=== PATIENT | female | born 1995 | race Caucasian/White ===

== ENCOUNTER 2016-11-15 18:44 | Emergency (ER) | payer BC, OTHER ==
--- NOTE | 2016-11-15 19:16 | ED ---
Psych HPI - General Chief Complaint: Psychiatric Symptoms Stated Complaint: PETITIONED BY Time Seen by Provider: 11/15/16 18:54 Source: patient, RN notes reviewed Mode of arrival: ambulatory Limitations: no limitations - History of Present Illness Initial Comments: 21-year-old female presents emergency Department with police for psychiatric evaluation. Patient has called 911 twice in last week for panic attacks. Patient also reportedly stated that ice this is after her. Patient states that she waited to see her psychiatrist for medications. Patient denies any suicidal or homicidal thoughts. Patient does abuse marijuana. Denies any alcohol abuse at this time does have a history of it. Patient has no physical complaints. Denies any chest pain, shortness breath, nausea, vomiting diarrhea constipation. - Related Data Home Medications Medication Instructions Recorded Confirmed No Known Home Medications [No 11/15/16 11/15/16 Known Home Medications] Allergies Allergy/AdvReac Type Severity Reaction Status Date / Time No Known Allergies Allergy Verified 11/15/16 19:16 Review of Systems ROS Statement: Those systems with pertinent positive or pertinent negative responses have been documented in the HPI. ROS Other: All systems not noted in ROS Statement are negative. Past Medical History Past Medical History: No Reported History History of Any Multi-Drug Resistant Organisms: None Reported Past Surgical History: No Surgical Hx Reported Additional Past Surgical History / Comment(s): small cysts, externally in her groin area. Past Anesthesia/Blood Transfusion Reactions: No Reported Reaction Past Psychological History: ADD/ADHD, Anxiety, Depression Smoking Status: Current every day smoker Past Alcohol Use History: Occasional Additional Past Alcohol Use History / Comment(s): Patient is a smoker of one half pack per day since she was 13 years old. She has not been smoking marijuana lately but when she does she uses it every day. She denies a medical marijuana card. She denies any other street drug use. She drinks alcohol about one time per week. She is currently living with her father who uses heroin. Past Drug Use History: Marijuana - Past Family History Mother Additional Family Medical History / Comment(s): Mother is alive at age 53 with back and knee surgery, ovarian cysts. Father History Unknown: Yes Additional Family Medical History / Comment(s): Father is alive at age 53 with active history of heroin use Sister(s) Additional Family Medical History / Comment(s): She has 3 sisters and one half- sister with no major medical problems. Patient does not have any brothers. Patient does not have any children. General Exam Limitations: no limitations General appearance: alert, in no apparent distress Head exam: Present: atraumatic, normocephalic, normal inspection Eye exam: Present: normal appearance, PERRL, EOMI. Absent: scleral icterus, conjunctival injection, periorbital swelling ENT exam: Present: normal exam, normal oropharynx, mucous membranes moist Neck exam: Present: normal inspection, full ROM. Absent: tenderness, meningismus, lymphadenopathy Respiratory exam: Present: normal lung sounds bilaterally. Absent: respiratory distress, wheezes, rales, rhonchi, stridor Cardiovascular Exam: Present: regular rate, normal rhythm, normal heart sounds. Absent: systolic murmur, diastolic murmur, rubs, gallop, clicks GI/Abdominal exam: Present: soft, normal bowel sounds. Absent: distended, tenderness, guarding, rebound, rigid Neurological exam: Present: alert, oriented X3, CN II-XII intact Psychiatric exam: Present: normal affect, normal mood Skin exam: Present: warm, dry, intact, normal color. Absent: rash Course Vital Signs 11/15/16 11/15/16 18:53 18:58 Temperature 97 F L Pulse Rate 53 L Respiratory 20 Rate Blood Pressure 117/84 O2 Sat by Pulse 100 Oximetry Medical Decision Making - Medical Decision Making 21-year-old female presents emergency department for psychiatric evaluation. Patient was evaluated by [facility]. Patient is not suicidal or homicidal. Patient does not meet inpatient criteria. Patient does have anxiety. - Lab Data Lab Results 11/15/16 Range/Units 19:25 Urine Opiates Screen Not Detected (NotDetected) Ur Oxycodone Screen Not Detected (NotDetected) Urine Methadone Screen Not Detected (NotDetected) Ur Propoxyphene Screen Not Detected (NotDetected) Ur Barbiturates Screen Not Detected (NotDetected) U Tricyclic Antidepress Not Detected (NotDetected) Ur Phencyclidine Scrn Not Detected (NotDetected) Ur Amphetamines Screen Not Detected (NotDetected) U Methamphetamines Scrn Not Detected (NotDetected) U Benzodiazepines Scrn Not Detected (NotDetected) Urine Cocaine Screen Detected H (NotDetected) U Marijuana (THC) Screen Detected H (NotDetected) Disposition Clinical Impression: Acute anxiety Disposition: HOME SELF-CARE Condition: Stable Instructions: Generalized Anxiety Disorder (ED) Additional Instructions: Please return to the Emergency Department if symptoms worsen or any other concerns. Referrals: Dmitry Ortiz MD [Primary Care Provider] - 1-2 days Time of Disposition: 21:27
[2016-11-15] MEDS ORDERED: LORazepam 1 MG TAB PO STA (20:56)
[2016-11-15 21:34] VITALS: BP 121/61; PULSE 88; RESP 16; TEMP 97.7
== END 2016-11-15 21:34 | disposition home or self-care (01) ==
LOC: EC 18:44
DX: F41.9 Anxiety disorder, unspecified (principal); F32.9 Major depressive disorder, single episode, unspecified; F90.9 Attention-deficit hyperactivity disorder, unspecified type; F17.200 Nicotine dependence, unspecified, uncomplicated
CPT/HCPCS: 80306; 82075; 99284

== ENCOUNTER 2019-12-17 07:51 | Emergency (ER) | payer BC, OTHER ==
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
[2019-12-17] MEDS ORDERED: LORazepam 1 MG TAB PO STA (10:23)
[2019-12-17 11:42] LABS: ALT 23 U/L (4-34); AST 37 U/L (14-36); African American GFR (CKD) >90 (>60 ml/min/1.73 sqM); Albumin 4.6 g/dL (3.5-5.0); Alkaline Phosphatase 53 U/L (38-126); Anion Gap 9 mmol/L; Blood Urea Nitrogen 20 mg/dL (7-17); Calcium 9.4 mg/dL (8.4-10.2); Carbon Dioxide 27 mmol/L (22-30); Chloride 101 mmol/L (98-107); Glucose 94 mg/dL (74-99); Non-African American GFR(CKD) >90 (>60 ml/min/1.73 sqM); Potassium 4.2 mmol/L (3.5-5.1); Sodium 137 mmol/L (137-145); Total Bilirubin 0.6 mg/dL (0.2-1.3); Total Protein 7.3 g/dL (6.3-8.2)
[2019-12-17 11:53] LABS: Basophils # (A) 0.1 k/uL (0-0.2); Basophils % (A) 0 %; Eosinophils # (A) 0.2 k/uL (0-0.7); Eosinophils % (A) 1 %; HCT 39.7 % (34.0-46.0); HGB 13.4 gm/dL (11.4-16.0); Lymphocytes # (A) 3.7 k/uL (1.0-4.8); Lymphocytes % (A) 26 %; MCHC 33.7 g/dL (31.0-37.0); MCV 92.1 fL (80.0-100.0); Mean Platelet Volume 10.7; Monocytes # (A) 0.8 k/uL (0-1.0); Monocytes % (A) 6 %; Neutrophils % (A) 65 %; Platelet Count 317 k/uL (150-450); RBC 4.31 m/uL (3.80-5.40); RDW 13.1 % (11.5-15.5); WBC 13.9 k/uL (3.8-10.6)
[2019-12-17] MEDS ORDERED: ALPRAZolam 1 MG TAB PO STA (12:13)
[2019-12-17] MEDS ORDERED: ZIPRASIDONE 20 MG CAP PO STA ×3 (12:44→22:05)
[2019-12-17] MEDS ORDERED: NICOTINE 7MG/24HR PATCH TRANSDERM STA (17:43)
[2019-12-17] MEDS ORDERED: ZIPRASIDONE 20 MG VIAL IM STA ×2 (18:16→22:16)
[2019-12-17] MEDS ORDERED: LORazepam 2 MG/ML INJ IM STA (18:16)
--- NOTE | 2019-12-17 18:24 | ED ---
Medical Decision Making - Medical Decision Making Patient being disruptive and continue trying to leave. Patient appears psychotic and irrational. Patient unable to demonstrate medical decision making. - Lab Data Result diagrams: 12/17/19 10:53 12/17/19 10:53 Lab Results 12/17/19 12/17/19 12/17/19 Range/Units 10:53 10:53 13:00 WBC 13.9 H (3.8-10.6) k/uL RBC 4.31 (3.80-5.40) m/uL Hgb 13.4 (11.4-16.0) gm/dL Hct 39.7 (34.0-46.0) % MCV 92.1 (80.0-100.0) fL MCH 31.0 (25.0-35.0) pg MCHC 33.7 (31.0-37.0) g/dL RDW 13.1 (11.5-15.5) % Plt Count 317 (150-450) k/uL Neutrophils % 65 % Lymphocytes % 26 % Monocytes % 6 % Eosinophils % 1 % Basophils % 0 % Neutrophils # 9.0 H (1.3-7.7) k/uL Lymphocytes # 3.7 (1.0-4.8) k/uL Monocytes # 0.8 (0-1.0) k/uL Eosinophils # 0.2 (0-0.7) k/uL Basophils # 0.1 (0-0.2) k/uL Sodium 137 (137-145) mmol/L Potassium 4.2 (3.5-5.1) mmol/L Chloride 101 (98-107) mmol/L Carbon Dioxide 27 (22-30) mmol/L Anion Gap 9 mmol/L BUN 20 H (7-17) mg/dL Creatinine 0.59 (0.52-1.04) mg/dL Est GFR (CKD-EPI)AfAm >90 (>60 ml/min/1.73 sqM) Est GFR (CKD-EPI)NonAf >90 (>60 ml/min/1.73 sqM) Glucose 94 (74-99) mg/dL Calcium 9.4 (8.4-10.2) mg/dL Total Bilirubin 0.6 (0.2-1.3) mg/dL AST 37 H (14-36) U/L ALT 23 (4-34) U/L Alkaline Phosphatase 53 (38-126) U/L Total Protein 7.3 (6.3-8.2) g/dL Albumin 4.6 (3.5-5.0) g/dL Urine HCG, Qual Not Detected (Not Detectd) Disposition Clinical Impression: Acute psychosis Disposition: TRANSFER TO PSYCH HOSP/UNIT Is patient prescribed a controlled substance at d/c from ED?: No Referrals: Mila Sosa DO [Primary Care Provider] - 1-2 days Procedures - Restraint - Face to Face Restraint Occurrence 1 Patient's Immediate Situation: Endangers self safety Patient's Reaction to the Intervention: Uncooperative Patient's Medical & Behavioral Condition: Awake Need to Continue or Terminate Restraint or Seclusion: Continue Face to Face Eval of Restraint Date: 12/17/19 Face to Face Eval of Restraint Time: 18:01
[2019-12-17 20:16] LABS: Appearance,Urine Clear (Clear); Bilirubin,Urine Negative (Negative); Blood,Urine Negative (Negative); Color,Urine Yellow; Glucose,Urine (UA) Negative (Negative); Ketones,Urine Trace (Negative); Leukocyte Esterase,Urine Negative (Negative); Nitrite,Urine Negative (Negative); Protein,Urine Negative (Negative); Specific Gravity,Urine 1.011 (1.001-1.035); Urobilinogen,Urine <2.0 mg/dL (<2.0)
[2019-12-17 20:53] LABS: Amphetamine Screen,Urine Detected (NotDetected); Barbiturate Screen,Urine Not Detected (NotDetected); Benzodiazepines Screen,Urine Detected (NotDetected); Cocaine Screen,Urine Not Detected (NotDetected); Methadone Screen, Urine Not Detected (NotDetected); Opiate Screen,Urine Not Detected (NotDetected); Oxycodone Screen, Urine Not Detected (NotDetected); Phencyclidine Screen,Urine Not Detected (NotDetected); Tricyclic Antidepressant,Urine Not Detected (NotDetected); Urn Cannabinoid Scrn Detected (NotDetected)
[2019-12-17 21:39] VITALS: RESP 18
[2019-12-17] MEDS ORDERED: ZIPRASIDONE 20 MG CAP PO PRN (21:45)
[2019-12-18] MEDS ORDERED: LORazepam 1 MG TAB PO STA (01:41)
[2019-12-18] MEDS ORDERED: diphenhydrAMINE 50 MG CAP PO STA ×2 (01:41→01:45)
[2019-12-18] MEDS ORDERED: NICOTINE 14MG/24HR PATCH TRANSDERM STA (02:10)
[2019-12-18 02:30] VITALS: BP 116/80; PULSE 97; TEMP 97.9
== END 2019-12-18 02:33 ==
LOC: EC 07:51
DX: Z03.818 Encounter for observation for suspected exposure to other biological agents ruled out (principal); F23 Brief psychotic disorder; F90.9 Attention-deficit hyperactivity disorder, unspecified type; F32.9 Major depressive disorder, single episode, unspecified; F41.9 Anxiety disorder, unspecified; F17.200 Nicotine dependence, unspecified, uncomplicated; Z79.899 Other long term (current) drug therapy
CPT/HCPCS: 82075; 36415; 80053; 85025; 81003; 81025; 80306; 96372 ×3; 99285; U0003; S4990 ×2; J2060; J3486

== ENCOUNTER 2020-03-10 17:47 | Emergency (ER) | payer OTHER ==
[2020-03-10 18:02] VITALS: TEMP 98.9
[2020-03-10 18:33] LABS: Appearance,Urine Clear (Clear); Bilirubin,Urine Negative (Negative); Blood,Urine Negative (Negative); Color,Urine Light Yellow; Glucose,Urine (UA) Negative (Negative); Ketones,Urine Negative (Negative); Leukocyte Esterase,Urine Negative (Negative); Nitrite,Urine Negative (Negative); Protein,Urine Negative (Negative); Specific Gravity,Urine 1.012 (1.001-1.035); Urobilinogen,Urine <2.0 mg/dL (<2.0)
[2020-03-10 18:43] VITALS: BP 130/92; PULSE 98; RESP 18
--- NOTE | 2020-03-10 18:43 | ED ---
General Adult HPI - General Chief complaint: Anxiety Stated complaint: anxiety Time Seen by Provider: 03/10/20 18:10 Source: patient, RN notes reviewed Mode of arrival: ambulatory Limitations: no limitations - History of Present Illness Initial comments: 25-year-old female with a past medical history of seizure disorder, anxiety, depression, bipolar disorder presents to the emergency room for anxiety. Patient reports that she has been anxious for the past several days. Patient reports she thinks this is because she was seen in the psychiatric [facility] about a month and a half ago and was given a prescription for Ativan. She ran out of this about a month ago. She has been seeing her counselor that she has had increased anxiety. They recommended she see a psychiatrist for anxiety with X. She has an appointment on Wednesday. However patient states that she needs an Ativan. She reports that if she has one today will help for the next several days. She states otherwise her coping mechanisms are to go to sleep. Patient denies any thoughts of harming herself or anyone else. Patient also may have a urinary tract infection in stating she has urinary urgency. Denies fevers, flank pain or dysuria.Patient has no other complaints at this time including shortness of breath, chest pain, abdominal pain, nausea or vomiting, headache, or visual changes. - Related Data Home Medications Medication Instructions Recorded Confirmed Divalproex Sodium [Depakote] 1,000 mg PO BID 12/17/19 03/10/20 Benztropine Mesylate [Cogentin] 0.5 mg PO BID 03/10/20 03/10/20 OLANZapine [ZyPREXA Zydis] 10 mg PO BID 03/10/20 03/10/20 cloNIDine HCL [Catapres] 0.2 mg PO DAILY 03/10/20 03/10/20 haloperidoL [Haloperidol] 5 mg PO TID 03/10/20 03/10/20 Allergies Allergy/AdvReac Type Severity Reaction Status Date / Time No Known Allergies Allergy Verified 03/10/20 18:37 Review of Systems ROS Statement: Those systems with pertinent positive or pertinent negative responses have been documented in the HPI. ROS Other: All systems not noted in ROS Statement are negative. Past Medical History Past Medical History: Seizure Disorder History of Any Multi-Drug Resistant Organisms: None Reported Past Surgical History: No Surgical Hx Reported Additional Past Surgical History / Comment(s): small cysts, externally in her groin area. Past Anesthesia/Blood Transfusion Reactions: No Reported Reaction Past Psychological History: ADD/ADHD, Anxiety, Bipolar, Depression, PTSD Smoking Status: Current every day smoker Past Alcohol Use History: Occasional Past Drug Use History: Marijuana - Past Family History Mother Additional Family Medical History / Comment(s): Mother is alive at age 53 with back and knee surgery, ovarian cysts. Father History Unknown: Yes Additional Family Medical History / Comment(s): Father is alive at age 53 with active history of heroin use Sister(s) Additional Family Medical History / Comment(s): She has 3 sisters and one half- sister with no major medical problems. Patient does not have any brothers. Patient does not have any children. General Exam Limitations: no limitations General appearance: alert, in no apparent distress Head exam: Present: atraumatic, normocephalic, normal inspection Eye exam: Present: normal appearance, PERRL, EOMI. Absent: scleral icterus, conjunctival injection, periorbital swelling ENT exam: Present: normal exam, mucous membranes moist Neck exam: Present: normal inspection, full ROM. Absent: tenderness, m eningismus, lymphadenopathy Respiratory exam: Present: normal lung sounds bilaterally. Absent: respiratory distress, wheezes, rales, rhonchi, stridor Cardiovascular Exam: Present: regular rate, normal rhythm, normal heart sounds. Absent: systolic murmur, diastolic murmur, rubs, gallop, clicks GI/Abdominal exam: Present: soft, normal bowel sounds. Absent: distended, tenderness, guarding, rebound, rigid Neurological exam: Present: alert Psychiatric exam: Present: anxious Course Vital Signs 03/10/20 03/10/20 17:56 18:42 Temperature 98.9 F Pulse Rate 127 H 98 Respiratory 16 18 Rate Blood Pressure 118/84 130/92 O2 Sat by Pulse 97 97 Oximetry Medical Decision Making - Medical Decision Making Vitals are stable. Patient initially tachycardic upon presentation to the emergency room which was likely secondary to her anxiety. Patient's vitals did improve her her stay. HPI and physical exam as documented. Urinalysis is unremarkable. HCG is negative. At this time patient will be given 1 Ativan here. She will follow up at her appointment on Wednesday. She will return if she has any worsening symptoms.I discussed this case with attending Dr. Conde who agrees with this assessment and treatment plan. - Lab Data Lab Results 03/10/20 03/10/20 03/10/20 Range/Units 18:28 18:28 18:28 Urine Color Light Yellow Urine Appearance Clear (Clear) Urine pH 8.0 (5.0-8.0) Ur Specific [place] 1.012 (1.001-1.035) Urine Protein Negative (Negative) Urine Glucose (UA) Negative (Negative) Urine Ketones Negative (Negative) Urine Blood Negative (Negative) Urine Nitrite Negative (Negative) Urine Bilirubin Negative (Negative) Urine Urobilinogen <2.0 (<2.0) mg/dL Ur Leukocyte Esterase Negative (Negative) Urine HCG, Qual Not Detected (Not Detectd) Urine Opiates Screen Not Detected (NotDetected) Ur Oxycodone Screen Not Detected (NotDetected) Urine Methadone Screen Not Detected (NotDetected) Ur Propoxyphene Screen Not Detected (NotDetected) Ur Barbiturates Screen Not Detected (NotDetected) U Tricyclic Antidepress Not Detected (NotDetected) Ur Phencyclidine Scrn Not Detected (NotDetected) Ur Amphetamines Screen Not Detected (NotDetected) U Methamphetamines Scrn Not Detected (NotDetected) U Benzodiazepines Scrn Not Detected (NotDetected) Urine Cocaine Screen Not Detected (NotDetected) U Marijuana (THC) Screen Detected H (NotDetected) Disposition Clinical Impression: Acute anxiety Disposition: HOME SELF-CARE Condition: Good Instructions (If sedation given, give patient instructions): Generalized Anxiety Disorder (ED) Additional Instructions: Please follow up with your psychiatry appt on Wednesday. Return to the ER for any worsening symptoms. Is patient prescribed a controlled substance at d/c from ED?: No Referrals: David Markham DO [Primary Care Provider] - 1-2 days Time of Disposition: 18:59
[2020-03-10 18:46] LABS: Amphetamine Screen,Urine Not Detected (NotDetected); Barbiturate Screen,Urine Not Detected (NotDetected); Benzodiazepines Screen,Urine Not Detected (NotDetected); Cocaine Screen,Urine Not Detected (NotDetected); Methadone Screen, Urine Not Detected (NotDetected); Opiate Screen,Urine Not Detected (NotDetected); Oxycodone Screen, Urine Not Detected (NotDetected); Phencyclidine Screen,Urine Not Detected (NotDetected); Tricyclic Antidepressant,Urine Not Detected (NotDetected); Urn Cannabinoid Scrn Detected (NotDetected)
[2020-03-10] MEDS ORDERED: LORazepam 1 MG TAB PO STA (18:52)
== END 2020-03-10 19:04 | disposition home or self-care (01) ==
LOC: EC 17:47
DX: F41.9 Anxiety disorder, unspecified (principal); G40.909 Epilepsy, unspecified, not intractable, without status epilepticus; F31.9 Bipolar disorder, unspecified; F43.10 Post-traumatic stress disorder, unspecified; R39.15 Urgency of urination; Z79.899 Other long term (current) drug therapy
CPT/HCPCS: 80306; 81003; 81025; 99283

== ENCOUNTER 2020-03-22 16:48 | Emergency (ER) | payer OTHER ==
[2020-03-22 17:03] VITALS: RESP 18; TEMP 98.1
[2020-03-22] MEDS ORDERED: LORazepam 1 MG TAB PO STA (17:25)
--- NOTE | 2020-03-22 17:53 | ED ---
General Adult HPI - General Chief complaint: Anxiety Stated complaint: anxiety Time Seen by Provider: 03/22/20 17:15 Source: patient, RN notes reviewed Mode of arrival: ambulatory Limitations: no limitations - History of Present Illness Initial comments: 25-year-old female presents to the emergency room for a chief complaint of anxiety. Patient is on several different anxiety medications. Patient reports that they are working on getting her more controlled. She has an appointment on Wednesday where she will be able to go over her medications. Patient reports that throat the day she has just been more anxious than normal. States she is having episodes where she can't stop crying. She states she feels shaky. Patient reports that she feels like she needs an Ativan will help her get through until Wednesday.patient denies any thoughts of harming herself or anyone else. Patient has no other complaints at this time including shortness of br eath, chest pain, abdominal pain, nausea or vomiting, headache, or visual changes. - Related Data Home Medications Medication Instructions Recorded Confirmed Divalproex Sodium [Depakote] 1,000 mg PO BID 12/17/19 03/10/20 Benztropine Mesylate [Cogentin] 0.5 mg PO BID 03/10/20 03/10/20 OLANZapine [ZyPREXA Zydis] 10 mg PO BID 03/10/20 03/10/20 cloNIDine HCL [Catapres] 0.2 mg PO DAILY 03/10/20 03/10/20 haloperidoL [Haloperidol] 5 mg PO TID 03/10/20 03/10/20 Allergies Allergy/AdvReac Type Severity Reaction Status Date / Time No Known Allergies Allergy Verified 03/22/20 16:59 Review of Systems ROS Statement: Those systems with pertinent positive or pertinent negative responses have been documented in the HPI. ROS Other: All systems not noted in ROS Statement are negative. Past Medical History Past Medical History: Seizure Disorder History of Any Multi-Drug Resistant Organisms: None Reported Past Surgical History: No Surgical Hx Reported Additional Past Surgical History / Comment(s): small cysts, externally in her groin area. Past Anesthesia/Blood Transfusion Reactions: No Reported Reaction Past Psychological History: ADD/ADHD, Anxiety, Bipolar, Depression, PTSD Smoking Status: Current every day smoker Past Alcohol Use History: None Reported Past Drug Use History: Marijuana - Past Family History Mother Additional Family Medical History / Comment(s): Mother is alive at age 53 with back and knee surgery, ovarian cysts. Father History Unknown: Yes Additional Family Medical History / Comment(s): Father is alive at age 53 with active history of heroin use Sister(s) Additional Family Medical History / Comment(s): She has 3 sisters and one half- sister with no major medical problems. Patient does not have any brothers. Patient does not have any children. General Exam Limitations: no limitations General appearance: alert, in no apparent distress, anxious Head exam: Present: atraumatic, normocephalic, normal inspection Eye exam: Present: normal appearance, PERRL, EOMI. Absent: scleral icterus, conjunctival injection, periorbital swelling ENT exam: Present: normal exam, mucous membranes moist Neck exam: Present: normal inspection, full ROM. Absent: tenderness, meningismus, lymphadenopathy Respiratory exam: Present: normal lung sounds bilaterally. Absent: respiratory distress, wheezes, rales, rhonchi, stridor Cardiovascular Exam: Present: regular rate, normal rhythm, normal heart sounds. Absent: systolic murmur, diastolic murmur, rubs, gallop, clicks GI/Abdominal exam: Present: soft, normal bowel sounds. Absent: distended, tenderness, guarding, rebound, rigid Neurological exam: Present: alert Course Vital Signs 03/22/20 17:00 Temperature 98.1 F Pulse Rate 111 H Respiratory 18 Rate Blood Pressure 137/100 O2 Sat by Pulse 98 Oximetry Medical Decision Making - Medical Decision Making Patient was given 1 mg of Ativan here in the emergency room and she did have significant improvement symptoms. At this time patient can be discharged home to follow up with primary care. She has an appointment on Wednesday to go over her medications. She does have a ride home today. She will return here for any worsening symptoms. Disposition Clinical Impression: Acute anxiety Disposition: HOME SELF-CARE Condition: Good Instructions (If sedation given, give patient instructions): Generalized Anxiety Disorder (ED) Additional Instructions: Please follow-up with primary care in 1-2 days. Return here to the emergency room for any worsening symptoms. Is patient prescribed a controlled substance at d/c from ED?: No Referrals: David Markham DO [Primary Care Provider] - 1-2 days Time of Disposition: 17:59
[2020-03-22 18:06] VITALS: BP 149/89; PULSE 90
== END 2020-03-22 18:29 | disposition home or self-care (01) ==
LOC: EC 16:48
DX: F41.9 Anxiety disorder, unspecified (principal); G40.909 Epilepsy, unspecified, not intractable, without status epilepticus; F90.9 Attention-deficit hyperactivity disorder, unspecified type; F31.9 Bipolar disorder, unspecified; Z79.899 Other long term (current) drug therapy; F17.200 Nicotine dependence, unspecified, uncomplicated
CPT/HCPCS: 99282

== ENCOUNTER 2020-03-23 13:45 | Emergency (ER) | payer OTHER ==
[2020-03-23 13:58] VITALS: BP 128/84; RESP 20; TEMP 98.2
[2020-03-23] MEDS ORDERED: ALPRAZolam 1 MG TAB PO STA (14:04)
--- NOTE | 2020-03-23 14:07 | ED ---
General Adult HPI - General Chief complaint: Anxiety Stated complaint: revisit-anxiety attack Time Seen by Provider: 03/23/20 13:59 Source: patient Mode of arrival: ambulatory Limitations: no limitations - History of Present Illness Initial comments: Dictation was produced using [employer] dictation software. please excuse any grammatical, word or spelling errors. This patient was cared for during a federal and state declared state of emergency secondary to Covid 19 Chief Complaint: 25-year-old female presents with anxiety. History of Present Illness: 25-year-old female she has past medical history of anxiety. She has anxiety managed outpatient by nurse practitioner. She does have history of mental illness per she was seen here yesterday for anxiety symptoms. She does report some mild dyspnea patient does not have any history of respiratory symptoms. Patient denies . She denies any suicidal or homicidal ideation. Denies any visual auditory hallucinations. Patient denies any caffeine use. No alcohol intake in the last 24-48 hours. Patient requests some anxiolytics before she was working at 5 PM. She feels anxious but she does not have any particular reason of why she feels anxious. The ROS documented in this emergency department record has been reviewed and confirmed by me. Those systems with pertinent positive or negative responses have been documented in the HPI. All other systems are other negative and/or noncontributory. PHYSICAL EXAM: General Impression: Alert and oriented x3, not in acute distress HEENT: Normocephalic atraumatic, extra-ocular movements intact, pupils equal and reactive to light bilaterally, mucous membranes moist. Cardiovascular: Heart regular rate and rhythm, no murmurs Chest: Able to complete full sentences, no retractions, no tachypnea, lungs clear to auscultation bilaterally Abdomen: abdomen soft, non-tender, non-distended, no organomegaly Musculoskeletal: Pulses present and equal in all extremities, no peripheral edema Motor: no focal deficits noted Neurological: CN II-XII grossly intact, no focal motor or sensory deficits noted Skin: Intact with no visualized rashes Psych: Normal affect and mood ED course: 25-year-old female presents with anxiety reaction. As upon arrival shows heart rate of 111, rest of vital signs within acceptable limits. Two-view chest x-ray is unremarkable. Patient's well-appearing at bedside after anxiolytics. Patient be discharged per she is told to follow-up with her mental specialist for outpatient management of anxiety. Repeat heart rate is improved. - Related Data Home Medications Medication Instructions Recorded Confirmed Divalproex Sodium [Depakote] 1,000 mg PO BID 12/17/19 03/10/20 Benztropine Mesylate [Cogentin] 0.5 mg PO BID 03/10/20 03/10/20 OLANZapine [ZyPREXA Zydis] 10 mg PO BID 03/10/20 03/10/20 cloNIDine HCL [Catapres] 0.2 mg PO DAILY 03/10/20 03/10/20 haloperidoL [Haloperidol] 5 mg PO TID 03/10/20 03/10/20 Allergies Allergy/AdvReac Type Severity Reaction Status Date / Time No Known Allergies Allergy Verified 03/23/20 13:58 Review of Systems ROS Statement: Those systems with pertinent positive or pertinent negative responses have been documented in the HPI. ROS Other: All systems not noted in ROS Statement are negative. Past Medical History Past Medical History: Seizure Disorder History of Any Multi-Drug Resistant Organisms: None Reported Past Surgical History: No Surgical Hx Reported Additional Past Surgical History / Comment(s): small cysts, externally in her groin area. Past Anesthesia/Blood Transfusion Reactions: No Reported Reaction Past Psychological History: ADD/ADHD, Anxiety, Bipolar, Depression, PTSD Smoking Status: Current every day smoker Past Alcohol Use History: None Reported Past Drug Use History: Marijuana - Past Family History Mother Additional Family Medical History / Comment(s): Mother is alive at age 53 with back and knee surgery, ovarian cysts. Father History Unknown: Yes Additional Family Medical History / Comment(s): Father is alive at age 53 with active history of heroin use Sister(s) Additional Family Medical History / Comment(s): She has 3 sisters and one half- sister with no major medical problems. Patient does not have any brothers. Patient does not have any children. General Exam Limitations: no limitations Course Vital Signs 03/23/20 03/23/20 13:55 14:26 Temperature 98.2 F Pulse Rate 111 H 94 Respiratory 20 Rate Blood Pressure 128/84 O2 Sat by Pulse 98 98 Oximetry Disposition Clinical Impression: Anxiety Disposition: HOME SELF-CARE Condition: Good Instructions (If sedation given, give patient instructions): Generalized Anxiety Disorder (ED) Is patient prescribed a controlled substance at d/c from ED?: No Referrals: David Markham DO [Primary Care Provider] - 1-2 days Time of Disposition: 15:16
[2020-03-23 14:27] VITALS: PULSE 94
--- NOTE | 2020-03-23 15:03 | XR ---
EXAMINATION TYPE: XR chest 2V DATE OF EXAM: 03/23/2020 COMPARISON: NONE HISTORY: Short of breath TECHNIQUE: FINDINGS: Heart and mediastinum are normal. Lungs are clear. Diaphragm is normal. Bony thorax appears normal. IMPRESSION: Normal chest
== END 2020-03-23 15:27 | disposition home or self-care (01) ==
LOC: EC 13:45
DX: F41.9 Anxiety disorder, unspecified (principal); G40.909 Epilepsy, unspecified, not intractable, without status epilepticus; F31.9 Bipolar disorder, unspecified; F90.9 Attention-deficit hyperactivity disorder, unspecified type; Z79.899 Other long term (current) drug therapy; F17.200 Nicotine dependence, unspecified, uncomplicated
CPT/HCPCS: 71046; 99283

== ENCOUNTER 2020-05-02 03:11 | Emergency (ER) | payer OTHER ==
[2020-05-02 03:17] VITALS: RESP 18; TEMP 98.6
[2020-05-02] MEDS ORDERED: SODIUM CHLORIDE 0.9% 500 ML 500 ML IV STA ×2 (03:19→05:01)
[2020-05-02 04:25] LABS: Basophils # (A) 0.1 k/uL (0-0.2); Basophils % (A) 1 %; Eosinophils # (A) 0.5 k/uL (0-0.7); Eosinophils % (A) 4 %; HCT 42.5 % (34.0-46.0); HGB 14.4 gm/dL (11.4-16.0); Lymphocytes # (A) 4.9 k/uL (1.0-4.8); Lymphocytes % (A) 40 %; MCH 31.5 pg (25.0-35.0); MCHC 33.8 g/dL (31.0-37.0); MCV 93.2 fL (80.0-100.0); Mean Platelet Volume 9.2; Monocytes # (A) 0.8 k/uL (0-1.0); Monocytes % (A) 6 %; Neutrophils # (A) 5.7 k/uL (1.3-7.7); Neutrophils % (A) 47 %; Platelet Count 270 k/uL (150-450); RBC 4.55 m/uL (3.80-5.40); RDW 11.7 % (11.5-15.5); WBC 12.2 k/uL (3.8-10.6)
[2020-05-02 04:44] LABS: ALT 34 U/L (4-34); AST 33 U/L (14-36); African American GFR (CKD) >90 (>60 ml/min/1.73 sqM); Albumin 4.8 g/dL (3.5-5.0); Alkaline Phosphatase 60 U/L (38-126); Anion Gap 9 mmol/L; Blood Urea Nitrogen 18 mg/dL (7-17); Calcium 9.8 mg/dL (8.4-10.2); Carbon Dioxide 26 mmol/L (22-30); Chloride 105 mmol/L (98-107); Glucose 103 mg/dL (74-99); Magnesium 2.1 mg/dL (1.6-2.3); Non-African American GFR(CKD) 81 (>60 ml/min/1.73 sqM); Potassium 4.4 mmol/L (3.5-5.1); Sodium 140 mmol/L (137-145); Total Bilirubin 0.8 mg/dL (0.2-1.3); Total Protein 7.8 g/dL (6.3-8.2)
[2020-05-02] MEDS ORDERED: LORazepam 1 MG TAB PO STA (05:00)
--- NOTE | 2020-05-02 05:19 | ED ---
General Adult HPI - General Chief complaint: Extremity Problem,Nontraumatic Stated complaint: leg cramps/spasms Time Seen by Provider: 05/02/20 03:18 Source: patient Mode of arrival: ambulatory Limitations: no limitations - History of Present Illness Initial comments: this patient is a 25-year-old woman who presents to be evaluated for bilateral leg spasms. She states she is been getting these going back for probably about 2 months intermittently. They have come on tonight and the patient was concerned that it may be also related to a recent changes in her psychiatricmedication regimen. Patient denies any leg swelling. No chest pain, dyspnea, palpitations hemoptysis or syncope. No change in urination or bowel movements. -: month(s) Location: left, right, lower extremity Quality: other (spasms) Consistency: intermittent Improves with: none Worsens with: none Associated Symptoms: denies other symptoms - Related Data Home Medications Medication Instructions Recorded Confirmed Divalproex Sodium [Depakote] 1,000 mg PO BID 12/17/19 03/10/20 Benztropine Mesylate [Cogentin] 0.5 mg PO BID 03/10/20 03/10/20 OLANZapine [ZyPREXA Zydis] 10 mg PO BID 03/10/20 03/10/20 cloNIDine HCL [Catapres] 0.2 mg PO DAILY 03/10/20 03/10/20 haloperidoL [Haloperidol] 5 mg PO TID 03/10/20 03/10/20 Allergies Allergy/AdvReac Type Severity Reaction Status Date / Time No Known Allergies Allergy Verified 05/02/20 03:17 Review of Systems ROS Statement: Those systems with pertinent positive or pertinent negative responses have been documented in the HPI. ROS Other: All systems not noted in ROS Statement are negative. Constitutional: Denies: fever, chills Respiratory: Denies: dyspnea, hemoptysis Cardiovascular: Denies: chest pain, palpitations, edema, syncope Gastrointestinal: Denies: abdominal pain, nausea, vomiting Genitourinary: Denies: dysuria, hematuria Musculoskeletal: Reports: as per HPI, myalgia Skin: Denies: rash Neurological: Denies: weakness, numbness Past Medical History Past Medical History: Seizure Disorder History of Any Multi-Drug Resistant Organisms: None Reported Past Surgical History: No Surgical Hx Reported Additional Past Surgical History / Comment(s): small cysts, externally in her groin area. Past Anesthesia/Blood Transfusion Reactions: No Reported Reaction Past Psychological History: ADD/ADHD, Anxiety, Bipolar, Depression, PTSD Smoking Status: Current every day smoker Past Alcohol Use History: None Reported Past Drug Use History: Marijuana - Past Family History Mother Additional Family Medical History / Comment(s): Mother is alive at age 53 with back and knee surgery, ovarian cysts. Father History Unknown: Yes Additional Family Medical History / Comment(s): Father is alive at age 53 with active history of heroin use Sister(s) Additional Family Medical History / Comment(s): She has 3 sisters and one half-sister with no major medical problems. Patient does not have any brothers. Patient does not have any children. General Exam Limitations: no limitations General appearance: alert, in no apparent distress Head exam: Present: atraumatic, normocephalic Respiratory exam: Present: normal lung sounds bilaterally. Absent: respiratory distress, wheezes, rales, rhonchi, stridor Cardiovascular Exam: Present: regular rate, normal rhythm, normal heart sounds. Absent: systolic murmur, diastolic murmur, rubs, gallop GI/Abdominal exam: Present: soft. Absent: tenderness Extremities exam: Present: normal inspection, normal capillary refill. Absent: pedal edema, calf tenderness Back exam: Present: normal inspection. Absent: muscle spasm Neurological exam: Present: alert Skin exam: Present: warm, dry, intact, normal color. Absent: rash Course Vital Signs 05/02/20 05/02/20 03:14 06:03 Temperature 98.6 F 98.6 F Pulse Rate 108 H 82 Respiratory 18 18 Rate Blood Pressure 134/87 123/88 O2 Sat by Pulse 97 100 Oximetry Medical Decision Making - Medical Decision Making patient is 25-year-old woman with intermittent muscle spasms bilateral lower extremities. Exam is essentially normal. The patient does have what appears to be a touch of dehydration per the labs. Patient is given fluids and is feeling a little better. Discussed appropriate further care and follow-up - Lab Data Result diagrams: 05/02/20 04:16 05/02/20 04:16 Lab Results 05/02/20 05/02/20 Range/Units 04:16 04:16 WBC 12.2 H (3.8-10.6) k/uL RBC 4.55 (3.80-5.40) m/uL Hgb 14.4 (11.4-16.0) gm/dL Hct 42.5 (34.0-46.0) % MCV 93.2 (80.0-100.0) fL MCH 31.5 (25.0-35.0) pg MCHC 33.8 (31.0-37.0) g/dL RDW 11.7 (11.5-15.5) % Plt Count 270 (150-450) k/uL MPV 9.2 Neutrophils % 47 % Lymphocytes % 40 % Monocytes % 6 % Eosinophils % 4 % Basophils % 1 % Neutrophils # 5.7 (1.3-7.7) k/uL Lymphocytes # 4.9 H (1.0-4.8) k/uL Monocytes # 0.8 (0-1.0) k/uL Eosinophils # 0.5 (0-0.7) k/uL Basophils # 0.1 (0-0.2) k/uL Sodium 140 (137-145) mmol/L Potassium 4.4 (3.5-5.1) mmol/L Chloride 105 (98-107) mmol/L Carbon Dioxide 26 (22-30) mmol/L Anion Gap 9 mmol/L BUN 18 H (7-17) mg/dL Creatinine 0.97 (0.52-1.04) mg/dL Est GFR (CKD-EPI)AfAm >90 (>60 ml/min/1.73 sqM) Est GFR (CKD-EPI)NonAf 81 (>60 ml/min/1.73 sqM) Glucose 103 H (74-99) mg/dL Calcium 9.8 (8.4-10.2) mg/dL Magnesium 2.1 (1.6-2.3) mg/dL Total Bilirubin 0.8 (0.2-1.3) mg/dL AST 33 (14-36) U/L ALT 34 (4-34) U/L Alkaline Phosphatase 60 (38-126) U/L Total Protein 7.8 (6.3-8.2) g/dL Albumin 4.8 (3.5-5.0) g/dL Disposition Clinical Impression: Dehydration, Muscle spasm of both lower legs Disposition: HOME SELF-CARE Condition: Good Instructions (If sedation given, give patient instructions): Muscle Spasm (ED) Is patient prescribed a controlled substance at d/c from ED?: No Referrals: David Markham DO [Primary Care Provider] - 1-2 days
[2020-05-02] MEDS ORDERED: IBUPROFEN 600 MG TAB PO STA (05:57)
[2020-05-02 06:04] VITALS: BP 123/88; PULSE 82
== END 2020-05-02 06:03 | disposition home or self-care (01) ==
LOC: EC 03:11
DX: M62.838 Other muscle spasm (principal); E86.0 Dehydration; F32.9 Major depressive disorder, single episode, unspecified; F41.9 Anxiety disorder, unspecified; G40.909 Epilepsy, unspecified, not intractable, without status epilepticus; F90.9 Attention-deficit hyperactivity disorder, unspecified type; F17.200 Nicotine dependence, unspecified, uncomplicated; Z79.899 Other long term (current) drug therapy
CPT/HCPCS: 36415; 80053; 83735; 85025; 96360; 99284

== ENCOUNTER 2020-11-07 05:08 | Emergency (ER) | payer OTHER ==
[2020-11-07 05:13] VITALS: TEMP 98
[2020-11-07] MEDS ORDERED: SODIUM CHLORIDE 0.9% 1,000 ML IV STA (05:42)
[2020-11-07] MEDS ORDERED: AMPICILLIN-SULBACTAM 3 GM in SODIUM CHLORIDE 0.9% 100 ML IVPB STA (05:43)
--- NOTE | 2020-11-07 05:45 | ED ---
Nausea/Vomiting/Diarrhea HPI - General Chief complaint: Nausea/Vomiting/Diarrhea Stated complaint: Vomiting Time Seen by Provider: 11/07/20 05:11 Source: patient Mode of arrival: ambulatory Limitations: no limitations - Related Data Home Medications Medication Instructions Recorded Confirmed Divalproex Sodium [Depakote] 1,000 mg PO BID 12/17/19 03/10/20 Benztropine Mesylate [Cogentin] 0.5 mg PO BID 03/10/20 03/10/20 OLANZapine [ZyPREXA Zydis] 10 mg PO BID 03/10/20 03/10/20 cloNIDine HCL [Catapres] 0.2 mg PO DAILY 03/10/20 03/10/20 haloperidoL [Haloperidol] 5 mg PO TID 03/10/20 03/10/20 Allergies Allergy/AdvReac Type Severity Reaction Status Date / Time No Known Allergies Allergy Verified 11/07/20 05:13 Review of Systems ROS Statement: Those systems with pertinent positive or pertinent negative responses have been documented in the HPI. ROS Other: All systems not noted in ROS Statement are negative. Past Medical History Past Medical History: Seizure Disorder History of Any Multi-Drug Resistant Organisms: None Reported Past Surgical History: No Surgical Hx Reported Additional Past Surgical History / Comment(s): small cysts, externally in her groin area. Past Anesthesia/Blood Transfusion Reactions: No Reported Reaction Past Psychological History: ADD/ADHD, Anxiety, Bipolar, Depression, PTSD Smoking Status: Current every day smoker Past Alcohol Use History: None Reported Past Drug Use History: Marijuana - Past Family History Mother Additional Family Medical History / Comment(s): Mother is alive at age 53 with back and knee surgery, ovarian cysts. Father History Unknown: Yes Additional Family Medical History / Comment(s): Father is alive at age 53 with active history of heroin use Sister(s) Additional Family Medical History / Comment(s): She has 3 sisters and one half- sister with no major medical problems. Patient does not have any brothers. Patient does not have any children. General Exam Limitations: no limitations Course Vital Signs 11/07/20 05:09 Temperature 98 F Pulse Rate 59 L Respiratory 20 Rate Blood Pressure 136/87 O2 Sat by Pulse 97 Oximetry Medical Decision Making - Lab Data Result diagrams: 11/07/20 05:56 11/07/20 05:56 Lab Results 11/07/20 11/07/20 11/07/20 Range/Units 05:31 05:31 05:56 WBC 13.7 H (3.8-10.6) k/uL RBC 4.79 (3.80-5.40) m/uL Hgb 14.3 (11.4-16.0) gm/dL Hct 43.5 (34.0-46.0) % MCV 90.9 (80.0-100.0) fL MCH 29.8 (25.0-35.0) pg MCHC 32.8 (31.0-37.0) g/dL RDW 13.2 (11.5-15.5) % Plt Count 291 (150-450) k/uL MPV 9.9 Neutrophils % 85 % Lymphocytes % 11 % Monocytes % 3 % Eosinophils % 1 % Basophils % 0 % Neutrophils # 11.7 H (1.3-7.7) k/uL Lymphocytes # 1.5 (1.0-4.8) k/uL Monocytes # 0.4 (0-1.0) k/uL Eosinophils # 0.1 (0-0.7) k/uL Basophils # 0.0 (0-0.2) k/uL PT (9.0-12.0) sec INR (<1.2) Sodium (137-145) mmol/L Potassium (3.5-5.1) mmol/L Chloride (98-107) mmol/L Carbon Dioxide (22-30) mmol/L Anion Gap mmol/L BUN (7-17) mg/dL Creatinine (0.52-1.04) mg/dL Est GFR (CKD-EPI)AfAm (>60 ml/min/1.73 sqM) Est GFR (CKD-EPI)NonAf (>60 ml/min/1.73 sqM) Glucose (74-99) mg/dL Calcium (8.4-10.2) mg/dL Total Bilirubin (0.2-1.3) mg/dL AST (14-36) U/L ALT (4-34) U/L Alkaline Phosphatase (38-126) U/L Creatine Kinase (30-135) U/L Total Protein (6.3-8.2) g/dL Albumin (3.5-5.0) g/dL Urine Color Yellow Urine Appearance Cloudy H (Clear) Urine pH 8.5 H (5.0-8.0) Ur Specific [place] 1.035 (1.001-1.035) Urine Protein 1+ H (Negative) Urine Glucose (UA) Negative (Negative) Urine Ketones 1+ H (Negative) Urine Blood Negative (Negative) Urine Nitrite Negative (Negative) Urine Bilirubin Negative (Negative) Urine Urobilinogen 2.0 (<2.0) mg/dL Ur Leukocyte Esterase Trace H (Negative) Urine WBC 7 H (0-5) /hpf Ur Squamous Epith Cells 19 H (0-4) /hpf Amorphous Sediment Few H (None) /hpf Hyaline Casts 3 H (0-2) /lpf Urine Mucus Many H (None) /hpf Urine HCG, Qual Not Detected (Not Detectd) Salicylates mg/dL Acetaminophen ug/mL Serum Alcohol mg/dL 11/07/20 11/07/20 Range/Units 05:56 05:56 WBC (3.8-10.6) k/uL RBC (3.80-5.40) m/uL Hgb (11.4-16.0) gm/dL Hct (34.0-46.0) % MCV (80.0-100.0) fL MCH (25.0-35.0) pg MCHC (31.0-37.0) g/dL RDW (11.5-15.5) % Plt Count (150-450) k/uL MPV Neutrophils % % Lymphocytes % % Monocytes % % Eosinophils % % Basophils % % Neutrophils # (1.3-7.7) k/uL Lymphocytes # (1.0-4.8) k/uL Monocytes # (0-1.0) k/uL Eosinophils # (0-0.7) k/uL Basophils # (0-0.2) k/uL PT 11.5 (9.0-12.0) sec INR 1.1 (<1.2) Sodium 140 (137-145) mmol/L Potassium 4.1 (3.5-5.1) mmol/L Chloride 106 (98-107) mmol/L Carbon Dioxide 25 (22-30) mmol/L Anion Gap 9 mmol/L BUN 8 (7-17) mg/dL Creatinine 0.59 (0.52-1.04) mg/dL Est GFR (CKD-EPI)AfAm >90 (>60 ml/min/1.73 sqM) Est GFR (CKD-EPI)NonAf >90 (>60 ml/min/1.73 sqM) Glucose 137 H (74-99) mg/dL Calcium 9.7 (8.4-10.2) mg/dL Total Bilirubin 1.0 (0.2-1.3) mg/dL AST 26 (14-36) U/L ALT 17 (4-34) U/L Alkaline Phosphatase 59 (38-126) U/L Creatine Kinase 80 (30-135) U/L Total Protein 7.4 (6.3-8.2) g/dL Albumin 4.9 (3.5-5.0) g/dL Urine Color Urine Appearance (Clear) Urine pH (5.0-8.0) Ur Specific [place] (1.001-1.035) Urine Protein (Negative) Urine Glucose (UA) (Negative) Urine Ketones (Negative) Urine Blood (Negative) Urine Nitrite (Negative) Urine Bilirubin (Negative) Urine Urobilinogen (<2.0) mg/dL Ur Leukocyte Esterase (Negative) Urine WBC (0-5) /hpf Ur Squamous Epith Cells (0-4) /hpf Amorphous Sediment (None) /hpf Hyaline Casts (0-2) /lpf Urine Mucus (None) /hpf Urine HCG, Qual (Not Detectd) Salicylates <1.0 mg/dL Acetaminophen <10.0 ug/mL Serum Alcohol <10 mg/dL - EKG Data -: EKG Interpreted by Me (EKG sinus rhythm 72 DE 140 QRS 82 QTC 442) Disposition Clinical Impression: Gastroenteritis Disposition: HOME SELF-CARE Condition: Good Instructions (If sedation given, give patient instructions): Acute Nausea and Vomiting (ED) Is patient prescribed a controlled substance at d/c from ED?: No Referrals: None,Stated [Primary Care Provider] - 1-2 days
[2020-11-07 06:11] LABS: Amorphous Sediment,Urine Few /hpf; Appearance,Urine Cloudy (Clear); Bilirubin,Urine Negative (Negative); Blood,Urine Negative (Negative); Color,Urine Yellow; Glucose,Urine (UA) Negative (Negative); Hyaline Casts,Urine 3 /lpf (0-2); Ketones,Urine 1+ (Negative); Leukocyte Esterase,Urine Trace (Negative); Mucus,Urine Many /hpf; Nitrite,Urine Negative (Negative); PH, Urine 8.5 (5.0-8.0); Protein,Urine 1+ (Negative); Specific Gravity,Urine 1.035 (1.001-1.035); Squamous Epithelial Cell,Urine 19 /hpf (0-4); WBC,Urine 7 /hpf (0-5)
[2020-11-07 06:15] LABS: Basophils % (A) 0 %; Eosinophils # (A) 0.1 k/uL (0-0.7); Eosinophils % (A) 1 %; HCT 43.5 % (34.0-46.0); HGB 14.3 gm/dL (11.4-16.0); Lymphocytes # (A) 1.5 k/uL (1.0-4.8); Lymphocytes % (A) 11 %; MCH 29.8 pg (25.0-35.0); MCHC 32.8 g/dL (31.0-37.0); MCV 90.9 fL (80.0-100.0); Mean Platelet Volume 9.9; Monocytes # (A) 0.4 k/uL (0-1.0); Monocytes % (A) 3 %; Neutrophils # (A) 11.7 k/uL (1.3-7.7); Neutrophils % (A) 85 %; Platelet Count 291 k/uL (150-450); RBC 4.79 m/uL (3.80-5.40); RDW 13.2 % (11.5-15.5); WBC 13.7 k/uL (3.8-10.6)
[2020-11-07 06:20] LABS: INR 1.1 (<1.2); Prothrombin Time 11.5 sec (9.0-12.0)
[2020-11-07 06:24] LABS: African American GFR (CKD) >90 (>60 ml/min/1.73 sqM); Albumin 4.9 g/dL (3.5-5.0); Blood Urea Nitrogen 8 mg/dL (7-17); Carbon Dioxide 25 mmol/L (22-30); Chloride 106 mmol/L (98-107); Glucose 137 mg/dL (74-99); Non-African American GFR(CKD) >90 (>60 ml/min/1.73 sqM); Total Protein 7.4 g/dL (6.3-8.2)
[2020-11-07 06:26] LABS: ALT 17 U/L (4-34); AST 26 U/L (14-36); Acetaminophen <10.0 ug/mL; Alcohol <10 mg/dL; Alkaline Phosphatase 59 U/L (38-126); Anion Gap 9 mmol/L; Calcium 9.7 mg/dL (8.4-10.2); Creatine Kinase 80 U/L (30-135); Potassium 4.1 mmol/L (3.5-5.1); Salicylate <1.0 mg/dL; Sodium 140 mmol/L (137-145)
[2020-11-07] MEDS ORDERED: ACET/COD 300 MG/30 MG STARTER PACK 6 TAB BTL PO STA (07:04)
[2020-11-07] MEDS ORDERED: ONDANSETRON 4 MG ODT STARTER PACK 2 TAB BTL PO STA (07:04)
[2020-11-07 07:24] VITALS: BP 125/75; PULSE 62; RESP 18
== END 2020-11-07 07:24 | disposition home or self-care (01) ==
LOC: EC 05:08
DX: K52.9 Noninfective gastroenteritis and colitis, unspecified (principal); G40.909 Epilepsy, unspecified, not intractable, without status epilepticus; F17.200 Nicotine dependence, unspecified, uncomplicated
CPT/HCPCS: 36415; 93005; 80053; 82550; 85025; 85610; 81001; 81025; 80143; 80179; 99284; 96365; 96361; G0480; J0295; S0119; 80320; 96360

== ENCOUNTER 2020-11-09 01:06 | Observation (INO) | payer OTHER ==
--- NOTE | 2020-11-09 01:29 | ED ---
Nausea/Vomiting/Diarrhea HPI - General Chief complaint: Nausea/Vomiting/Diarrhea Stated complaint: Vomiting Time Seen by Provider: 11/09/20 01:11 Source: patient, RN notes reviewed, old records reviewed Mode of arrival: ambulatory Limitations: no limitations - History of Present Illness Initial comments: This is a 25-year-old female DF for evaluation recheck of abdominal pain with nausea vomiting. She is on day 3 of persistent nausea vomiting unable to take medications at home secondary to vomiting. No travel. No sick contacts no family members with similar complaint. No prior surgical history. MD complaint: nausea, vomiting, abdominal pain -: hour(s) Description of Vomiting: watery Description of Diarrhea: water, mucous Associated Abdominal Pain: Yes Location: diffuse Radiation: none Severity: moderate Severity scale (1-10): 6 Quality: cramping, aching Consistency: constant Improves with: none Worsens with: none Context: sick contacts Associated Symptoms: loss of appetite, nausea/vomiting, weakness - Related Data Home Medications Medication Instructions Recorded Confirmed Benztropine Mesylate [Cogentin] 0.5 mg PO BID 03/10/20 11/07/20 OLANZapine [ZyPREXA Zydis] 10 mg PO BID 03/10/20 11/07/20 Atorvastatin [Lipitor] 20 mg PO HS 11/07/20 11/07/20 Ergocalciferol [Vitamin D2 (1250 1,250 mcg PO Q7D 11/07/20 11/07/20 Mcg = 98181 Iu)] Allergies Allergy/AdvReac Type Severity Reaction Status Date / Time No Known Allergies Allergy Verified 11/09/20 01:13 Review of Systems ROS Statement: Those systems with pertinent positive or pertinent negative responses have been documented in the HPI. ROS Other: All systems not noted in ROS Statement are negative. Past Medical History Past Medical History: Seizure Disorder History of Any Multi-Drug Resistant Organisms: None Reported Past Surgical History: No Surgical Hx Reported Additional Past Surgical History / Comment(s): small cysts, externally in her groin area. Past Anesthesia/Blood Transfusion Reactions: No Reported Reaction Past Psychological History: ADD/ADHD, Anxiety, Bipolar, Depression, PTSD Smoking Status: Current every day smoker Past Alcohol Use History: None Reported Past Drug Use History: Marijuana - Past Family History Mother Additional Family Medical History / Comment(s): Mother is alive at age 53 with back and knee surgery, ovarian cysts. Father History Unknown: Yes Additional Family Medical History / Comment(s): Father is alive at age 53 with active history of heroin use Sister(s) Additional Family Medical History / Comment(s): She has 3 sisters and one half- sister with no major medical problems. Patient does not have any brothers. Patient does not have any children. General Exam Limitations: no limitations General appearance: alert, in no apparent distress Head exam: Present: atraumatic, normocephalic, normal inspection Eye exam: Present: normal appearance, PERRL, EOMI. Absent: scleral icterus, conjunctival injection, periorbital swelling ENT exam: Present: normal exam, mucous membranes moist Neck exam: Present: normal inspection. Absent: tenderness, meningismus, lymph adenopathy Respiratory exam: Present: normal lung sounds bilaterally. Absent: respiratory distress, wheezes, rales, rhonchi, stridor Cardiovascular Exam: Present: regular rate, normal rhythm, normal heart sounds. Absent: systolic murmur, diastolic murmur, rubs, gallop, clicks GI/Abdominal exam: Present: soft, normal bowel sounds. Absent: distended, tenderness, guarding, rebound, rigid Extremities exam: Present: normal inspection, full ROM, normal capillary refill. Absent: tenderness, pedal edema, joint swelling, calf tenderness Back exam: Present: normal inspection Neurological exam: Present: alert, oriented X3, CN II-XII intact Psychiatric exam: Present: normal affect, normal mood Skin exam: Present: warm, dry, intact, normal color. Absent: rash Course Vital Signs 11/09/20 11/09/20 01:09 03:13 Temperature 97.9 F Pulse Rate 82 93 Respiratory 20 18 Rate Blood Pressure 134/91 110/77 O2 Sat by Pulse 98 96 Oximetry - Reevaluation(s) Reevaluation #1: 11/09/20 02:20 Medical record is reviewed Reevaluation #2: 11/09/20 02:20 Patient with persistent nausea vomiting all symptoms are improving here in the ER Medical Decision Making - Medical Decision Making 25 female the admitted for persistent nausea vomiting, dehydration, esophagitis computed tomography scan no other acute findings - Lab Data Result diagrams: 11/09/20 02:12 11/09/20 02:12 Lab Results 11/09/20 11/09/20 11/09/20 Range/Units 02:12 02:12 02:12 WBC 14.9 H (3.8-10.6) k/uL RBC 4.58 (3.80-5.40) m/uL Hgb 14.5 (11.4-16.0) gm/dL Hct 41.2 (34.0-46.0) % MCV 90.0 (80.0-100.0) fL MCH 31.7 (25.0-35.0) pg MCHC 35.2 (31.0-37.0) g/dL RDW 12.7 (11.5-15.5) % Plt Count 278 (150-450) k/uL MPV 9.8 Neutrophils % 81 % Lymphocytes % 13 % Monocytes % 4 % Eosinophils % 1 % Basophils % 0 % Neutrophils # 12.1 H (1.3-7.7) k/uL Lymphocytes # 1.9 (1.0-4.8) k/uL Monocytes # 0.5 (0-1.0) k/uL Eosinophils # 0.2 (0-0.7) k/uL Basophils # 0.0 (0-0.2) k/uL Sodium (137-145) mmol/L Potassium (3.5-5.1) mmol/L Chloride (98-107) mmol/L Carbon Dioxide (22-30) mmol/L Anion Gap mmol/L BUN (7-17) mg/dL Creatinine (0.52-1.04) mg/dL Est GFR (CKD-EPI)AfAm (>60 ml/min/1.73 sqM) Est GFR (CKD-EPI)NonAf (>60 ml/min/1.73 sqM) Glucose (74-99) mg/dL Plasma Lactic Acid [place] (0.7-2.0) mmol/L Calcium (8.4-10.2) mg/dL Total Bilirubin (0.2-1.3) mg/dL AST (14-36) U/L ALT (4-34) U/L Alkaline Phosphatase (38-126) U/L Creatine Kinase (30-135) U/L Total Protein (6.3-8.2) g/dL Albumin (3.5-5.0) g/dL Amylase (30-110) U/L Lipase (23-300) U/L Urine Color Yellow Urine Appearance Cloudy H (Clear) Urine pH 6.5 (5.0-8.0) Ur Specific Taylor 1.030 (1.001-1.035) Urine Protein 1+ H (Negative) Urine Glucose (UA) Negative (Negative) Urine Ketones 1+ H (Negative) Urine Blood Negative (Negative) Urine Nitrite Negative (Negative) Urine Bilirubin Negative (Negative) Urine Urobilinogen 4.0 (<2.0) mg/dL Ur Leukocyte Esterase Negative (Negative) Urine RBC 2 (0-5) /hpf Urine WBC 9 H (0-5) /hpf Ur Squamous Epith Cells 8 H (0-4) /hpf Calcium Oxalate Crystal Many H (None) /hpf Urine Mucus Many H (None) /hpf Urine HCG, Qual Not Detected (Not Detectd) 11/09/20 11/09/20 Range/Units 02:12 02:12 WBC (3.8-10.6) k/uL RBC (3.80-5.40) m/uL Hgb (11.4-16.0) gm/dL Hct (34.0-46.0) % MCV (80.0-100.0) fL MCH (25.0-35.0) pg MCHC (31.0-37.0) g/dL RDW (11.5-15.5) % Plt Count (150-450) k/uL MPV Neutrophils % % Lymphocytes % % Monocytes % % Eosinophils % % Basophils % % Neutrophils # (1.3-7.7) k/uL Lymphocytes # (1.0-4.8) k/uL Monocytes # (0-1.0) k/uL Eosinophils # (0-0.7) k/uL Basophils # (0-0.2) k/uL Sodium 137 (137-145) mmol/L Potassium 3.7 (3.5-5.1) mmol/L Chloride 102 (98-107) mmol/L Carbon Dioxide 28 (22-30) mmol/L Anion Gap 7 mmol/L BUN 12 (7-17) mg/dL Creatinine 0.61 (0.52-1.04) mg/dL Est GFR (CKD-EPI)AfAm >90 (>60 ml/min/1.73 sqM) Est GFR (CKD-EPI)NonAf >90 (>60 ml/min/1.73 sqM) Glucose 124 H (74-99) mg/dL Plasma Lactic Acid [place] 0.9 (0.7-2.0) mmol/L Calcium 9.6 (8.4-10.2) mg/dL Total Bilirubin 0.7 (0.2-1.3) mg/dL AST 19 (14-36) U/L ALT 15 (4-34) U/L Alkaline Phosphatase 60 (38-126) U/L Creatine Kinase 52 (30-135) U/L Total Protein 7.0 (6.3-8.2) g/dL Albumin 4.5 (3.5-5.0) g/dL Amylase 37 (30-110) U/L Lipase 31 (23-300) U/L Urine Color Urine Appearance (Clear) Urine pH (5.0-8.0) Ur Specific Taylor (1.001-1.035) Urine Protein (Negative) Urine Glucose (UA) (Negative) Urine Ketones (Negative) Urine Blood (Negative) Urine Nitrite (Negative) Urine Bilirubin (Negative) Urine Urobilinogen (<2.0) mg/dL Ur Leukocyte Esterase (Negative) Urine RBC (0-5) /hpf Urine WBC (0-5) /hpf Ur Squamous Epith Cells (0-4) /hpf Calcium Oxalate Crystal (None) /hpf Urine Mucus (None) /hpf Urine HCG, Qual (Not Detectd) - Radiology Data Radiology results: report reviewed (CT head and pelvis does show esophagitis), image reviewed Disposition Clinical Impression: Gastroenteritis, Esophagitis, Failure of outpatient treatment, Dehydration Disposition[facility] Condition: Good Is patient prescribed a controlled substance at d/c from ED?: No Referrals: Nonstaff,Physician [Primary Care Provider] - 1-2 days
[2020-11-09] MEDS ORDERED: SODIUM CHLORIDE 0.9% 500 ML 500 ML IV STA (01:53)
[2020-11-09] MEDS ORDERED: PANTOPRAZOLE 40 MG/10 ML VIAL IVP STA (01:53)
[2020-11-09] MEDS ORDERED: MORPHINE SULFATE 4 MG/ML SYRINGE IV STA (01:53)
[2020-11-09] MEDS ORDERED: SODIUM CHLORIDE 0.9% 1,000 ML IV STA ×2 (01:53)
[2020-11-09] MEDS ORDERED: ONDANSETRON 4 MG/2 ML VIAL IVP STA (01:53)
[2020-11-09 02:28] LABS: Basophils % (A) 0 %; Eosinophils # (A) 0.2 k/uL (0-0.7); Eosinophils % (A) 1 %; HCT 41.2 % (34.0-46.0); HGB 14.5 gm/dL (11.4-16.0); Lymphocytes # (A) 1.9 k/uL (1.0-4.8); Lymphocytes % (A) 13 %; MCH 31.7 pg (25.0-35.0); MCHC 35.2 g/dL (31.0-37.0); Mean Platelet Volume 9.8; Monocytes # (A) 0.5 k/uL (0-1.0); Monocytes % (A) 4 %; Neutrophils # (A) 12.1 k/uL (1.3-7.7); Neutrophils % (A) 81 %; Platelet Count 278 k/uL (150-450); RBC 4.58 m/uL (3.80-5.40); RDW 12.7 % (11.5-15.5); WBC 14.9 k/uL (3.8-10.6)
[2020-11-09 02:33] LABS: Appearance,Urine Cloudy (Clear); Bilirubin,Urine Negative (Negative); Blood,Urine Negative (Negative); Calcium Oxalate Crystals,Urine Many /hpf; Color,Urine Yellow; Glucose,Urine (UA) Negative (Negative); Ketones,Urine 1+ (Negative); Leukocyte Esterase,Urine Negative (Negative); Mucus,Urine Many /hpf; Nitrite,Urine Negative (Negative); PH, Urine 6.5 (5.0-8.0); Protein,Urine 1+ (Negative); RBC,Urine 2 /hpf (0-5); Squamous Epithelial Cell,Urine 8 /hpf (0-4); WBC,Urine 9 /hpf (0-5)
[2020-11-09 02:38] LABS: ALT 15 U/L (4-34); AST 19 U/L (14-36); African American GFR (CKD) >90 (>60 ml/min/1.73 sqM); Albumin 4.5 g/dL (3.5-5.0); Alkaline Phosphatase 60 U/L (38-126); Amylase 37 U/L (30-110); Anion Gap 7 mmol/L; Blood Urea Nitrogen 12 mg/dL (7-17); Calcium 9.6 mg/dL (8.4-10.2); Carbon Dioxide 28 mmol/L (22-30); Chloride 102 mmol/L (98-107); Creatine Kinase 52 U/L (30-135); Glucose 124 mg/dL (74-99); Lipase 31 U/L (23-300); Non-African American GFR(CKD) >90 (>60 ml/min/1.73 sqM); Potassium 3.7 mmol/L (3.5-5.1); Sodium 137 mmol/L (137-145); Total Bilirubin 0.7 mg/dL (0.2-1.3)
--- NOTE | 2020-11-09 02:57 | CT ---
EXAM: CT Abdomen and Pelvis With Intravenous Contrast CLINICAL HISTORY: Abdominal pain. TECHNIQUE: Axial computed tomography images of the abdomen and pelvis with intravenous contrast. CTDI is 19.97 mGy and DLP is 1001.3 mGy-cm. This CT exam was performed using one or more of the following dose reduction techniques: automated exposure control, adjustment of the mA and/or kV according to patient size, and/or use of iterative reconstruction technique. COMPARISON: No previous studies. FINDINGS: Lung bases: Minimal subsegmental atelectasis at the lung bases. Heart: Heart is normal in size. Mediastinum: Esophagitis is suggested. ABDOMEN: Liver: Fatty liver with fatty sparing about the round ligament. The liver and the spleen enhance uniformly. Gallbladder and bile ducts: See below. Pancreas: See below. Spleen: See above. Adrenals: The adrenal glands, the head, body, tail of the pancreas and the gallbladder are unremarkable. Kidneys and ureters: No renal calculus or hydronephrosis. Delayed images revealed the ureters to be unremarkable. Stomach and bowel: Moderate quantity of ingested material in the stomach. Moderate quantity of stool throughout the colon. No bowel obstruction. No mucosal thickening. PELVIS: Appendix: The appendix is seen on coronal image 39 and is unremarkable. Bladder: The bladder is underdistended. Reproductive: The ovaries are unremarkable. The uterus is within normal limits. ABDOMEN and PELVIS: Intraperitoneal space: Unremarkable. No free air. No significant fluid collection. Bones/joints: No spondylolysis or spondylolisthesis. No acute fracture. No dislocation. Soft tissues: 1.5 cm umbilical hernia containing mesenteric fat only. Ischiorectal fat is clean. Vasculature: Unremarkable. No abdominal aortic aneurysm. Lymph nodes: No pelvic or inguinal lymphadenopathy. IMPRESSION: 1. Distal esophagitis is suggested. 2. Fatty infiltration of the liver. 3. The gallbladder is unremarkable. 4. No renal calculus or hydronephrosis. 5. The appendix is unremarkable. 6. No bowel obstruction.
[2020-11-09] MEDS ORDERED: NALOXONE 0.4 MG/ML 1 ML VIAL IV PRN (03:31)
[2020-11-09] MEDS ORDERED: ONDANSETRON 4 MG/2 ML VIAL IVP PRN (03:31)
[2020-11-09] MEDS ORDERED: MORPHINE SULFATE 4 MG/ML SYRINGE IV PRN (03:31)
[2020-11-09] MEDS ORDERED: cefTRIAXone IN SWFI 1,000 MG/10 ML SYRINGE IVP STA (03:33)
[2020-11-09 08:03] VITALS: RESP 16; TEMP 97.9
[2020-11-09] MEDS ORDERED: PANTOPRAZOLE 40 MG/10 ML VIAL IV SCH (09:00)
[2020-11-09 10:00] VITALS: BP 98/68; PULSE 53
[2020-11-09] MEDS ORDERED: HYDROcodone/APAP 7.5-325MG 1 EACH TAB PO PRN (10:10)
--- NOTE | 2020-11-09 12:27 | P.HPIM ---
History of Present Illness 25-year-old female came in with complaints of retrosternal burning sensation epigastric burning sensation nausea vomiting. Patient had a CT of the abdomen which showed esophagitis. Patient received Protonix with improvement in symp toms patient will be started on diet will advance her diet if she can tolerate it patient will be discharged on Prilosec for 14 days. Patient denied any fever chills, denied any dysuria. Review of Systems REVIEW OF SYSTEMS: CONSTITUTIONAL: No fever, no malaise, no fatigue. HEENT: No recent visual problems or hearing problems. Denied any sore throat. CARDIOVASCULAR: No chest pain, orthopnea, PND, no palpitations, no syncope. PULMONARY: No shortness of breath, no cough, no hemoptysis. GASTROINTESTINAL: As mentioned in HPI NEUROLOGICAL: No headaches, no weakness, no numbness. HEMATOLOGICAL: Denies any bleeding or petechiae. GENITOURINARY: Denies any burning micturition, frequency, or urgency. MUSCULOSKELETAL/RHEUMATOLOGICAL: Denies any joint pain, swelling, or any muscle pain. ENDOCRINE: Denies any polyuria or polydipsia. The rest of the 14-point review of systems is negative. Past Medical History Past Medical History: Seizure Disorder History of Any Multi-Drug Resistant Organisms: None Reported Past Surgical History: No Surgical Hx Reported Additional Past Surgical History / Comment(s): small cysts, externally in her groin area. Past Anesthesia/Blood Transfusion Reactions: No Reported Reaction Past Psychological History: ADD/ADHD, Anxiety, Bipolar, Depression, PTSD Smoking Status: Current every day smoker Past Alcohol Use History: None Reported Additional Past Alcohol Use History / Comment(s): Patient is a smoker of one half pack per day since she was 13 years old. She has not been smoking mar ijuana lately but when she does she uses it every day. She denies a medical marijuana card. She denies any other street drug use. She drinks alcohol about one time per week. She is currently living with her father who uses heroin. Past Drug Use History: Marijuana - Past Family History Mother Additional Family Medical History / Comment(s): Mother is alive at age 53 with back and knee surgery, ovarian cysts. Father History Unknown: Yes Additional Family Medical History / Comment(s): Father is alive at age 53 with active history of heroin use Sister(s) Additional Family Medical History / Comment(s): She has 3 sisters and one half- sister with no major medical problems. Patient does not have any brothers. Patient does not have any children. Medications and Allergies Home Medications Medication Instructions Recorded Confirmed Type Benztropine Mesylate [Cogentin] 0.5 mg PO BID 03/10/20 11/07/20 History OLANZapine [ZyPREXA Zydis] 10 mg PO BID 03/10/20 11/07/20 History Atorvastatin [Lipitor] 20 mg PO HS 11/07/20 11/07/20 History Ergocalciferol [Vitamin D2 (1250 1,250 mcg PO Q7D 11/07/20 11/07/20 History Mcg = 87314 Iu)] Omeprazole [PriLOSEC] 40 mg PO RENETTA-EMY #14 capsule. 11/09/20 Rx Allergies Allergy/AdvReac Type Severity Reaction Status Date / Time No Known Allergies Allergy Verified 11/09/20 01:13 Physical Exam Vitals: Vital Signs Temp Pulse Pulse Resp BP BP Pulse Ox 11/09/20 09:59 53 L 98/68 11/09/20 08:00 16 11/09/20 07:00 97.9 F 54 L 16 89/52 93 L 11/09/20 05:10 62 18 11/09/20 03:46 98 F 90 22 121/83 97 11/09/20 03:42 97.9 F 62 16 124/72 100 11/09/20 03:13 93 18 110/77 96 11/09/20 01:09 97.9 F 82 20 134/91 98 Intake and Output 11/08/20 11/09/20 11/09/20 22:59 06:59 14:59 Intake Total 390 Balance 390 Intake: Intake, IV Titration 390 Amount Sodium Chloride 0.9% 1, 390 000 ml @ 130 mls/hr IV . Q7H42M STA Rx#:[id number] Other: Weight 79.379 kg PHYSICAL EXAMINATION: GENERAL: The patient is alert and oriented x3, not in any acute distress. Well developed, well nourished. HEENT: Pupils are round and equally reacting to light. EOMI. No scleral icterus. No conjunctival pallor. Normocephalic, atraumatic. No pharyngeal erythema. No thyromegaly. CARDIOVASCULAR: S1 and S2 present. No murmurs, rubs, or gallops. PULMONARY: Chest is clear to auscultation, no wheezing or crackles. ABDOMEN: Soft, nontender, nondistended, normoactive bowel sounds. No palpable organomegaly. MUSCULOSKELETAL: No joint swelling or deformity. EXTREMITIES: No cyanosis, clubbing, or pedal edema. NEUROLOGICAL: Gross neurological examination did not reveal any focal deficits. SKIN: No rashes. Results CBC & Chem 7: 11/09/20 02:12 11/09/20 02:12 Labs: Abnormal Lab Results - Last 24 Hours (Table) 11/09/20 11/09/20 11/09/20 Range/Units 02:12 02:12 02:12 WBC 14.9 H (3.8-10.6) k/uL Neutrophils # 12.1 H (1.3-7.7) k/uL Glucose 124 H (74-99) mg/dL Urine Appearance Cloudy H (Clear) Urine Protein 1+ H (Negative) Urine Ketones 1+ H (Negative) Urine WBC 9 H (0-5) /hpf Ur Squamous Epith Cells 8 H (0-4) /hpf Calcium Oxalate Crystal Many H (None) /hpf Urine Mucus Many H (None) /hpf Thrombosis Risk Factor Assmnt - Choose All That Apply Any of the Below Risk Factors Present?: No Other Risk Factors: No Other congenital or acquired thrombophilia - If yes, enter type in comment: No Thrombosis Risk Factor Assessment Level: Very Low Risk Assessment and Plan Plan: -Esophagitis and gastritis: Patient's symptoms are improved with the proton pump inhibitor patient will be discharged on 14 more days of this medication patient was referred to PCP will advance her diet she can tolerate patient will be discharged today -Bipolar disorder/anxiety disorder: Patient will resume her home and the psychotic medications -History of seizure disorder patient is presently not on any antiseizure medications -Nicotine use: Counseling was provided. Patient will be discharged today
--- NOTE | 2020-11-09 12:27 | P.DS ---
Providers Date of admission: 11/09/20 03:32 Attending physician: Elena Hollingsworth Primary care physician: Physician Nonstaff Hospital Course: Please refer to HPI for further details Patient Condition at Discharge: Good Plan - Discharge Summary Discharge Rx Participant: Yes New Discharge Prescriptions: New Omeprazole [PriLOSEC] 40 mg PO AC-BRKFST #14 capsule.dr Continue Benztropine Mesylate [Cogentin] 0.5 mg PO BID OLANZapine [ZyPREXA Zydis] 10 mg PO BID Ergocalciferol [Vitamin D2 (1250 Mcg = 43635 Iu)] 1,250 mcg PO Q7D Atorvastatin [Lipitor] 20 mg PO HS Discharge Medication List Benztropine Mesylate [Cogentin] 0.5 mg PO BID 03/10/20 [History] OLANZapine [ZyPREXA Zydis] 10 mg PO BID 03/10/20 [History] Atorvastatin [Lipitor] 20 mg PO HS 11/07/20 [History] Ergocalciferol [Vitamin D2 (1250 Mcg = 73320 Iu)] 1,250 mcg PO Q7D 11/07/20 [History] Omeprazole [PriLOSEC] 40 mg PO AC-BRKFST #14 capsule. 11/09/20 [Rx] Follow up Appointment(s)/Referral(s): Amber Gonzáles MD [REFERRING] - 1 Week
== END 2020-11-09 13:32 | disposition home or self-care (01) ==
LOC: EC 01:06 → 6NMEDSUR 03:32
PROVIDERS: ADMIT Hospitalist; ATTEND Hospitalist
DX: K29.70 Gastritis, unspecified, without bleeding (principal); K20.90 Esophagitis, unspecified without bleeding; E86.0 Dehydration; Z20.822 Contact with and (suspected) exposure to COVID-19; K76.0 Fatty (change of) liver, not elsewhere classified; F31.9 Bipolar disorder, unspecified; F90.9 Attention-deficit hyperactivity disorder, unspecified type; F43.10 Post-traumatic stress disorder, unspecified; G40.909 Epilepsy, unspecified, not intractable, without status epilepticus; Z79.899 Other long term (current) drug therapy; F17.210 Nicotine dependence, cigarettes, uncomplicated; N83.209 Unspecified ovarian cyst, unspecified side; Z81.3 Family history of other psychoactive substance abuse and dependence; Z84.2 Family history of other diseases of the genitourinary system
CPT/HCPCS: 96376 ×2; 96361; 96374; 96375; 99285; 36415; 80053; 82150; 82550; 83605; 83690; 85025; 81001; 81025; 87635; 74177; G0378; J2270; J2405; J0696; C9113; Q9967

== ENCOUNTER 2020-12-20 11:42 | Emergency (ER) | payer OTHER ==
[2020-12-20 11:50] VITALS: BP 124/93; PULSE 77; RESP 16; TEMP 98.3
--- NOTE | 2020-12-20 12:02 | ED ---
ENT HPI - General Chief complaint: Dental/Oral Stated complaint: Mouth infection Time Seen by Provider: 12/20/20 11:52 Source: patient, RN notes reviewed Mode of arrival: ambulatory Limitations: no limitations - History of Present Illness Initial comments: 25-year-old female presents emergency Department with chief complaint of left- sided dental pain. Patient states started a few days ago been taking some antibiotics with no improvement. Patient states her swelling left-sided no difficulty swallowing or breathing. No reported fevers chills headache. - Related Data Home Medications Medication Instructions Recorded Confirmed Benztropine Mesylate [Cogentin] 0.5 mg PO BID 03/10/20 11/09/20 OLANZapine [ZyPREXA Zydis] 10 mg PO BID 03/10/20 11/09/20 Atorvastatin [Lipitor] 20 mg PO HS 11/07/20 11/09/20 Ergocalciferol [Vitamin D2 (1250 1,250 mcg PO Q7D 11/07/20 11/09/20 Mcg = 94977 Iu)] Sertraline [Zoloft] 25 mg PO HS 11/09/20 11/09/20 Previous Rx's Medication Instructions Recorded Omeprazole [PriLOSEC] 40 mg PO AC-BRKFST #14 capsule. 11/09/20 Clindamycin HCl 300 mg PO Q6HR #40 cap 12/20/20 Allergies Allergy/AdvReac Type Severity Reaction Status Date / Time No Known Allergies Allergy Verified 12/20/20 11:48 Review of Systems ROS Statement: Those systems with pertinent positive or pertinent negative responses have been documented in the HPI. ROS Other: All systems not noted in ROS Statement are negative. Past Medical History Past Medical History: Seizure Disorder History of Any Multi-Drug Resistant Organisms: None Reported Past Surgical History: No Surgical Hx Reported Additional Past Surgical History / Comment(s): small cysts, externally in her groin area. Past Anesthesia/Blood Transfusion Reactions: No Reported Reaction Past Psychological History: ADD/ADHD, Anxiety, Bipolar, Depression, PTSD Smoking Status: Current every day smoker Past Alcohol Use History: None Reported Past Drug Use History: Marijuana - Past Family History Mother Additional Family Medical History / Comment(s): Mother is alive at age 53 with back and knee surgery, ovarian cysts. Father History Unknown: Yes Additional Family Medical History / Comment(s): Father is alive at age 53 with active history of heroin use Sister(s) Additional Family Medical History / Comment(s): She has 3 sisters and one half- sister with no major medical problems. Patient does not have any brothers. Patient does not have any children. General Exam Limitations: no limitations General appearance: alert, in no apparent distress Head exam: Present: atraumatic, normocephalic, normal inspection ENT exam: Present: mucous membranes moist. Absent: normal oropharynx (Dental fracture, dental Peggy left lower, mild swelling, no drainable abscess) Neck exam: Present: normal inspection, full ROM. Absent: tenderness, meningismus, lymphadenopathy Respiratory exam: Present: normal lung sounds bilaterally. Absent: respiratory distress, wheezes, rales, rhonchi, stridor Cardiovascular Exam: Present: regular rate, normal rhythm, normal heart sounds. Absent: systolic murmur, diastolic murmur, rubs, gallop, clicks Course Vital Signs 12/20/20 11:47 Temperature 98.3 F Pulse Rate 77 Respiratory 16 Rate Blood Pressure 124/93 O2 Sat by Pulse 98 Oximetry Medical Decision Making - Medical Decision Making Patient has underlying dental infection. Patient will be started on clindamycin patient will follow-up with dentist return parameters were discussed. Disposition Clinical Impression: Dental abscess, Toothache Disposition: HOME SELF-CARE Condition: Stable Instructions (If sedation given, give patient instructions): Dental Abscess (ED) Additional Instructions: Please return to the Emergency Department if symptoms worsen or any other concerns. Prescriptions: Clindamycin HCl 300 mg PO Q6HR #40 cap Is patient prescribed a controlled substance at d/c from ED?: No Referrals: Marissa Tucker MD [Primary Care Provider] - 1-2 days Time of Disposition: 12:02
[2020-12-20] MEDS: ACET/COD 300 MG/30 MG STARTER PACK 6 TAB BTL PO STA (12:08)
== END 2020-12-20 12:20 | disposition home or self-care (01) ==
LOC: EC 11:42
DX: K04.7 Periapical abscess without sinus (principal); K02.9 Dental caries, unspecified; F17.200 Nicotine dependence, unspecified, uncomplicated
CPT/HCPCS: 99282

== ENCOUNTER 2020-12-30 10:00 | Emergency (ER) | payer OTHER ==
[2020-12-30 10:08] VITALS: BP 122/71; PULSE 78; RESP 18; TEMP 98.1
[2020-12-30] MEDS ORDERED: ACET/COD 300 MG/30 MG STARTER PACK 6 TAB BTL PO STA (10:33)
--- NOTE | 2020-12-30 10:34 | ED ---
ENT HPI - General Chief complaint: Dental/Oral Stated complaint: Dental Pain Time Seen by Provider: 12/30/20 10:13 Source: patient, RN notes reviewed Mode of arrival: ambulatory Limitations: no limitations - History of Present Illness Initial comments: 25-year-old female presents emergency Department chief complaint of left-sided facial swelling. Patient was recent seen and given antibiotics. Patient states she stopped them for a few days if things are better but states then it returned today she took her last dose. Patient has an appointment coming up orders dental issue. Patient denies any fevers or chills no difficulty swallowing. - Related Data Home Medications Medication Instructions Recorded Confirmed Benztropine Mesylate [Cogentin] 0.5 mg PO BID 03/10/20 11/09/20 OLANZapine [ZyPREXA Zydis] 10 mg PO BID 03/10/20 11/09/20 Atorvastatin [Lipitor] 20 mg PO HS 11/07/20 11/09/20 Ergocalciferol [Vitamin D2 (1250 1,250 mcg PO Q7D 11/07/20 11/09/20 Mcg = 47987 Iu)] Sertraline [Zoloft] 25 mg PO HS 11/09/20 11/09/20 Previous Rx's Medication Instructions Recorded Omeprazole [PriLOSEC] 40 mg PO AC-BRKFST #14 capsule. 11/09/20 Clindamycin HCl 300 mg PO Q6HR #40 cap 12/20/20 Clindamycin HCl 300 mg PO Q6HR #40 cap 12/30/20 Ibuprofen [Motrin] 600 mg PO Q8HR PRN #20 tab 12/30/20 Allergies Allergy/AdvReac Type Severity Reaction Status Date / Time No Known Allergies Allergy Verified 12/30/20 10:08 Review of Systems ROS Statement: Those systems with pertinent positive or pertinent negative responses have been documented in the HPI. ROS Other: All systems not noted in ROS Statement are negative. Past Medical History Past Medical History: Seizure Disorder History of Any Multi-Drug Resistant Organisms: None Reported Past Surgical History: No Surgical Hx Reported Additional Past Surgical History / Comment(s): small cysts, externally in her groin area. Past Anesthesia/Blood Transfusion Reactions: No Reported Reaction Past Psychological History: ADD/ADHD, Anxiety, Bipolar, Depression, PTSD Smoking Status: Current every day smoker Past Alcohol Use History: None Reported Past Drug Use History: Marijuana - Past Family History Mother Additional Family Medical History / Comment(s): Mother is alive at age 53 with back and knee surgery, ovarian cysts. Father History Unknown: Yes Additional Family Medical History / Comment(s): Father is alive at age 53 with active history of heroin use Sister(s) Additional Family Medical History / Comment(s): She has 3 sisters and one half- sister with no major medical problems. Patient does not have any brothers. Patient does not have any children. General Exam Limitations: no limitations General appearance: alert, in no apparent distress Head exam: Present: atraumatic, normocephalic, normal inspection ENT exam: Present: mucous membranes moist, other (Mild left cheek swelling). Absent: normal exam, normal oropharynx (Left lower dental fracture dental care is no drainable abscess) Neck exam: Present: normal inspection, full ROM. Absent: tenderness, meningismus, lymphadenopathy Respiratory exam: Present: normal lung sounds bilaterally. Absent: respiratory distress, wheezes, rales, rhonchi, stridor Cardiovascular Exam: Present: regular rate, normal rhythm, normal heart sounds. Absent: systolic murmur, diastolic murmur, rubs, gallop, clicks Neurological exam: Present: alert, oriented X3, CN II-XII intact, reflexes normal. Absent: motor sensory deficit Skin exam: Present: warm, dry, intact, normal color. Absent: rash Course Vital Signs 12/30/20 10:06 Temperature 98.1 F Pulse Rate 78 Respiratory 18 Rate Blood Pressure 122/71 O2 Sat by Pulse 98 Oximetry Medical Decision Making - Medical Decision Making Patient has a dental infection on laboratory started on antibiotics, follow-up with her dentist return parameters were discussed. Disposition Clinical Impression: Toothache, Dental abscess Disposition: HOME SELF-CARE Condition: Stable Instructions (If sedation given, give patient instructions): Toothache (ED) Additional Instructions: Please return to the Emergency Department if symptoms worsen or any other concerns. Prescriptions: Clindamycin HCl 300 mg PO Q6HR #40 cap Ibuprofen [Motrin] 600 mg PO Q8HR PRN #20 tab PRN Reason: Pain Is patient prescribed a controlled substance at d/c from ED?: No Referrals: Marissa Tucker MD [Primary Care Provider] - 1-2 days Time of Disposition: 10:33
== END 2020-12-30 10:46 | disposition home or self-care (01) ==
LOC: EC 10:00
DX: K04.7 Periapical abscess without sinus (principal); F17.200 Nicotine dependence, unspecified, uncomplicated
CPT/HCPCS: 99283

== ENCOUNTER 2021-03-18 20:10 | Emergency (ER) | payer OTHER ==
[2021-03-18 20:26] VITALS: BP 135/88; PULSE 72; RESP 16; TEMP 97.9
[2021-03-18] MEDS ORDERED: ACET/COD 300 MG/30 MG STARTER PACK 6 TAB BTL PO STA (21:02)
[2021-03-18] MEDS ORDERED: IBUPROFEN 600 MG TAB PO STA (21:02)
--- NOTE | 2021-03-18 21:06 | ED ---
General Adult HPI - General Chief complaint: Dental/Oral Stated complaint: Mouth Pain Time Seen by Provider: 03/18/21 20:49 Source: family Mode of arrival: ambulatory Limitations: no limitations - History of Present Illness Initial comments: 26-year-old female presents to the emergency room for dental pain. Patient got her upper wisdom teeth removed today. States her dentist was supposed to send pain medication to the pharmacy but failed to do so. she did take Tylenol at one point today but did not take anything else.Patient has no other complaints at this time including shortness of breath, chest pain, abdominal pain, nausea or vomiting, headache, or visual changes. - Related Data Home Medications Medication Instructions Recorded Confirmed Benztropine Mesylate [Cogentin] 0.5 mg PO BID 03/10/20 11/09/20 OLANZapine [ZyPREXA Zydis] 10 mg PO BID 03/10/20 11/09/20 Atorvastatin [Lipitor] 20 mg PO HS 11/07/20 11/09/20 Ergocalciferol [Vitamin D2 (1250 1,250 mcg PO Q7D 11/07/20 11/09/20 Mcg = 69365 Iu)] Sertraline [Zoloft] 25 mg PO HS 11/09/20 11/09/20 Previous Rx's Medication Instructions Recorded Omeprazole [PriLOSEC] 40 mg PO AC-BRKFST #14 capsule. 11/09/20 Clindamycin HCl 300 mg PO Q6HR #40 cap 12/20/20 Clindamycin HCl 300 mg PO Q6HR #40 cap 12/30/20 Ibuprofen [Motrin] 600 mg PO Q8HR PRN #20 tab 12/30/20 Ibuprofen [Motrin] 600 mg PO Q6HR PRN #20 tab 03/19/21 Allergies Allergy/AdvReac Type Severity Reaction Status Date / Time No Known Allergies Allergy Verified 03/18/21 20:26 Review of Systems ROS Statement: Those systems with pertinent positive or pertinent negative responses have been documented in the HPI. ROS Other: All systems not noted in ROS Statement are negative. Past Medical History Past Medical History: Seizure Disorder History of Any Multi-Drug Resistant Organisms: None Reported Past Surgical History: No Surgical Hx Reported Additional Past Surgical History / Comment(s): small cysts, externally in her groin area. Past Anesthesia/Blood Transfusion Reactions: No Reported Reaction Past Psychological History: ADD/ADHD, Anxiety, Bipolar, Depression, PTSD Smoking Status: Current every day smoker Past Alcohol Use History: None Reported Past Drug Use History: Marijuana - Past Family History Mother Additional Family Medical History / Comment(s): Mother is alive at age 53 with back and knee surgery, ovarian cysts. Father History Unknown: Yes Additional Family Medical History / Comment(s): Father is alive at age 53 with active history of heroin use Sister(s) Additional Family Medical History / Comment(s): She has 3 sisters and one half- sister with no major medical problems. Patient does not have any brothers. Patient does not have any children. General Exam Limitations: no limitations General appearance: alert Head exam: Present: atraumatic Eye exam: Present: normal appearance, PERRL, EOMI. Absent: scleral icterus, conjunctival injection ENT exam: Present: normal exam, mucous membranes moist. Absent: normal oropharynx (upper molars removed. No evidence of infection.) Neck exam: Present: normal inspection, full ROM. Absent: tenderness Respiratory exam: Present: normal lung sounds bilaterally. Absent: respiratory distress, wheezes Cardiovascular Exam: Present: regular rate, normal rhythm, normal heart sounds Neurological exam: Present: alert Course Vital Signs 03/18/21 20:24 Temperature 97.9 F Pulse Rate 72 Respiratory 16 Rate Blood Pressure 135/88 O2 Sat by Pulse 98 Oximetry Medical Decision Making - Medical Decision Making patient will be given Motrin as well as Tylenol 3 starter pack. No evidence of infection at this time. No swelling of the throat or mouth. No abscesses noted. No sublingual edema. No her surgery distress or difficulty handling secretions. Patient will follow-up with her dentist. She will return here for any worsening symptoms. Disposition Clinical Impression: Pain, dental Disposition: HOME SELF-CARE Condition: Good Instructions (If sedation given, give patient instructions): Toothache (ED) Additional Instructions: Take motrin for pain. If pain is severe take Tylenol 3. Do not drive or operate machinery while taking Tylenol 3. Return to the ER for any worsening symptoms. Prescriptions: Ibuprofen [Motrin] 600 mg PO Q6HR PRN #20 tab PRN Reason: Pain Is patient prescribed a controlled substance at d/c from ED?: No Referrals: Marissa Tucker MD [Primary Care Provider] - 1-2 days Time of Disposition: 21:04
== END 2021-03-18 21:41 | disposition home or self-care (01) ==
LOC: EC 20:10
DX: K08.89 Other specified disorders of teeth and supporting structures (principal); F17.200 Nicotine dependence, unspecified, uncomplicated
CPT/HCPCS: 99282

== ENCOUNTER 2021-07-21 16:23 | Emergency (ER) | payer OTHER ==
[2021-07-21 17:34] VITALS: BP 120/91; PULSE 76; RESP 14; TEMP 97.9
[2021-07-21] MEDS ORDERED: LORazepam 1 MG TAB PO STA (17:37)
--- NOTE | 2021-07-21 18:30 | ED ---
General Adult HPI - General Chief complaint: Anxiety Stated complaint: Anxiety Time Seen by Provider: 07/21/21 17:29 Source: patient, RN notes reviewed, old records reviewed Mode of arrival: ambulatory Limitations: no limitations - History of Present Illness Initial comments: Patient is a 26-year-old female with past medical history remarkable for anxie ty, seizure disorder who presents from her to Department complaining of worsening side of the last 3 days. She denies any chest pain, palpitations. Does endorse She is about have a panic attack and feels "jittery." Denies any drug use, alcohol use. He has been compliant with medications. States she has felt like this previously in the results of Ativan. Denies any other acute complaints at this time including nausea, vomiting, lightheadedness, abdominal pain, chest pain, shortness breath, fevers, chills, cough. He presents seeking a dose of Ativan if possible. She does have follow-up with her community mental health within the next 2 weeks. She has no other acute complaints at this time. Denies any suicidal or homicidal ideations, times complaints. Denies any visual or auditory hallucinations. I evaluated the patient when she was placed in a room. - Related Data Home Medications Medication Instructions Recorded Confirmed Benztropine Mesylate [Cogentin] 0.5 mg PO BID 03/10/20 11/09/20 OLANZapine [ZyPREXA Zydis] 10 mg PO BID 03/10/20 11/09/20 Atorvastatin [Lipitor] 20 mg PO HS 11/07/20 11/09/20 Ergocalciferol [Vitamin D2 (1250 1,250 mcg PO Q7D 11/07/20 11/09/20 Mcg = 75936 Iu)] Sertraline [Zoloft] 25 mg PO HS 11/09/20 11/09/20 Previous Rx's Medication Instructions Recorded Omeprazole [PriLOSEC] 40 mg PO RENETTA-JOSE AFSRobert #14 capsule. 11/09/20 Clindamycin HCl 300 mg PO Q6HR #40 cap 12/20/20 Clindamycin HCl 300 mg PO Q6HR #40 cap 12/30/20 Ibuprofen [Motrin] 600 mg PO Q8HR PRN #20 tab 12/30/20 Ibuprofen [Motrin] 600 mg PO Q6HR PRN #20 tab 03/19/21 LORazepam [Ativan] 1 mg PO DAILY PRN 3 Days #3 tab 07/21/21 Allergies Allergy/AdvReac Type Severity Reaction Status Date / Time No Known Allergies Allergy Verified 07/21/21 16:30 Review of Systems ROS Statement: Those systems with pertinent positive or pertinent negative responses have been documented in the HPI. Review of Systems: CONST: Denies fever EYES: Denies blurry vision ENT: Denies nasal congestion C/V: Denies Chest pain RESP: Denies shortness of breath GI: Denies abdominal pain : Denies dysuria SKIN: Denies rash. MSK: Denies joint pain. NEURO: Denies headache PSYCH: Denies suicidal and homicidal ideations/plans/attempts. Denies visual or auditory hallucinations. ROS Other: All systems not noted in ROS Statement are negative. Past Medical History Past Medical History: No Reported History, Seizure Disorder History of Any Multi-Drug Resistant Organisms: None Reported Past Surgical History: No Surgical Hx Reported Additional Past Surgical History / Comment(s): small cysts, externally in her groin area. Past Anesthesia/Blood Transfusion Reactions: No Reported Reaction Past Psychological History: ADD/ADHD, Anxiety, Bipolar, Depression, PTSD Smoking Status: Current every day smoker Past Alcohol Use History: None Reported Past Drug Use History: Marijuana - Past Family History Mother Additional Family Medical History / Comment(s): Mother is alive at age 53 with back and knee surgery, ovarian cysts. Father History Unknown: Yes Additional Family Medical History / Comment(s): Father is alive at age 53 with active history of heroin use Sister(s) Additional Family Medical History / Comment(s): She has 3 sisters and one half- sister with no major medical problems. Patient does not have any brothers. Patient does not have any children. General Exam - General Exam Comments Initial Comments: General: Appears in no acute distress. HEAD: Normal with no signs of head trauma. EYES: PERRLA, EOMI, conjunctiva normal, no discharge. Pupils 3 mm and equal bilaterally. ENT: Hearing grossly intact, normal oropharynx. RESPIRATORY: Clear breath sounds bilaterally. No wheezes, rales, or rhonchi. C/V: Regular rate and rhythm. S1 and S2 auscultated, no edema, peripheral pulses 2+ and intact throughout ABD: Abd is soft, nontender, nondistended EXT: Normal range of motion, no obvious deformity SKIN: No rashes or lesions observed on exposed skin. NEURO: Alert and oriented 4. Limitations: no limitations Course Vital Signs 07/21/21 07/21/21 16:30 17:27 Temperature 97 F L 97.9 F Pulse Rate 84 76 Respiratory 16 14 Rate Blood Pressure 132/91 120/91 O2 Sat by Pulse 98 98 Oximetry Medical Decision Making - Medical Decision Making Based on the patient's presentation and physical exam, I'm concerned for a mild anxiety at this time. She has no other acute complaints at this time. She is seeking a dose of Ativan which I believe is reasonable. I do not believe that she requires psychiatric evaluation and I did offer it, and she declined. She does have follow-up with [facility] this week or next week. I did advise that she follow up sooner. She'll be given a one-time dose of Ativan here in the department and she will be reevaluated. She was in agreement this plan. I do not believe that she requires any further laboratory studies or imaging at this time. On Reevaluation, the patient is feeling improved. She will like to go home at this time. I believe this is reasonable. She'll be given a 3 day prescription of Ativan. 3 tabs total. I believe she is safe for discharge home at this time. She'll follow up with [facility]. She was in agreement this plan. I will provide the patient with a prescription for 3 Ativan. I instructed the patient to follow up with their PCP in the next 3 days. I advised that she follow up with [facility] in the next 1-2 weeks. I explained that the patient should return to the emergency department if they experience any worsening symptoms. Strict return precautions were discussed with the patient. The patient expressed understanding of these instructions. I answered all questions that the patient had. The patient was discharged home in good condition with their prescriptions and follow up information. Disposition Clinical Impression: Anxiety Disposition: HOME SELF-CARE Condition: Good Instructions (If sedation given, give patient instructions): Generalized Anxiety Disorder (ED) Prescriptions: LORazepam [Ativan] 1 mg PO DAILY PRN 3 Days #3 tab PRN Reason: Anxiety Is patient prescribed a controlled substance at d/c from ED?: Yes When asked, does pt state using other controlled substances?: No If prescribed controlled substance>3 days was MAPS reviewed?: Prescribed <3 Days Referrals: Cate Tucker MD [Primary Care Provider] - 1-2 days
== END 2021-07-21 18:35 | disposition home or self-care (01) ==
LOC: EC 16:23
DX: F41.9 Anxiety disorder, unspecified (principal); F17.200 Nicotine dependence, unspecified, uncomplicated
CPT/HCPCS: 99283

== ENCOUNTER 2021-08-03 13:39 | Emergency (ER) | payer OTHER ==
[2021-08-03 13:47] VITALS: BP 104/75; PULSE 87; RESP 20; TEMP 97.8
[2021-08-03] MEDS ORDERED: LORazepam 1 MG TAB PO STA (15:18)
--- NOTE | 2021-08-03 16:21 | ED ---
General Adult HPI - General Chief complaint: Anxiety Stated complaint: Anxiety Time Seen by Provider: 08/03/21 15:08 Source: patient, RN notes reviewed, old records reviewed Mode of arrival: ambulatory Limitations: no limitations - History of Present Illness Initial comments: Patient is a 26-year-old female who presents emergency Department complaining of anxiety. This has occurred previously. She states she just feels anxious this morning. She attempted to go to work but it got worse. Denies any chest pain, shortness breath, abdominal pain, nausea, vomiting. Denies any headaches, weakness. His no other acute complaints at this time. Is requesting a single dose of Ativan oral and to be observed until improvement. Says occurred previously. I do believe this is reasonable. She denies any drug use or alcohol use. Has no other acute complaints at this time. Does have a therapist that she follows up palpation and talks with. Next appointment is in 1-2 weeks. - Related Data Home Medications Medication Instructions Recorded Confirmed Benztropine Mesylate [Cogentin] 0.5 mg PO BID 03/10/20 11/09/20 OLANZapine [ZyPREXA Zydis] 10 mg PO BID 03/10/20 11/09/20 Atorvastatin [Lipitor] 20 mg PO HS 11/07/20 11/09/20 Ergocalciferol [Vitamin D2 (1250 1,250 mcg PO Q7D 11/07/20 11/09/20 Mcg = 14048 Iu)] Sertraline [Zoloft] 25 mg PO HS 11/09/20 11/09/20 Previous Rx's Medication Instructions Recorded Omeprazole [PriLOSEC] 40 mg PO RENETTA-AYOKFSRobert #14 capsule. 11/09/20 Clindamycin HCl 300 mg PO Q6HR #40 cap 12/20/20 Clindamycin HCl 300 mg PO Q6HR #40 cap 12/30/20 Ibuprofen [Motrin] 600 mg PO Q8HR PRN #20 tab 12/30/20 Ibuprofen [Motrin] 600 mg PO Q6HR PRN #20 tab 03/19/21 LORazepam [Ativan] 1 mg PO DAILY PRN 3 Days #3 tab 07/21/21 Allergies Allergy/AdvReac Type Severity Reaction Status Date / Time No Known Allergies Allergy Verified 08/03/21 13:45 Review of Systems ROS Statement: Those systems with pertinent positive or pertinent negative responses have been documented in the HPI. Review of Systems: CONST: Denies fever EYES: Denies blurry vision ENT: Denies nasal congestion C/V: Denies Chest pain RESP: Denies shortness of breath GI: Denies abdominal pain : Denies dysuria SKIN: Denies rash. MSK: Denies joint pain. NEURO: Denies headache PSYCH: Denies suicidal and homicidal ideations/plans/attempts. Denies visual or auditory hallucinations. She endorses anxiety ROS Other: All systems not noted in ROS Statement are negative. Past Medical History Past Medical History: Seizure Disorder History of Any Multi-Drug Resistant Organisms: None Reported Past Surgical History: No Surgical Hx Reported Additional Past Surgical History / Comment(s): small cysts, externally in her groin area. Past Anesthesia/Blood Transfusion Reactions: No Reported Reaction Past Psychological History: ADD/ADHD, Anxiety, Bipolar, Depression, PTSD Smoking Status: Current every day smoker Past Alcohol Use History: None Reported Past Drug Use History: Marijuana - Past Family History Mother Additional Family Medical History / Comment(s): Mother is alive at age 53 with back and knee surgery, ovarian cysts. Father History Unknown: Yes Additional Family Medical History / Comment(s): Father is alive at age 53 with active history of heroin use Sister(s) Additional Family Medical History / Comment(s): She has 3 sisters and one half- sister with no major medical problems. Patient does not have any brothers. Patient does not have any children. General Exam - General Exam Comments Initial Comments: General: Appears in no acute distress. HEAD: Normal with no signs of head trauma. EYES: PERRLA, EOMI, conjunctiva normal, no discharge. Pupils are 3 mm and equal bilaterally. ENT: Hearing grossly intact, normal oropharynx. RESPIRATORY: Clear breath sounds bilaterally. No wheezes, rales, or rhonchi. C/V: Regular rate and rhythm. S1 and S2 auscultated, no edema, peripheral pulses 2+ and intact throughout ABD: Abd is soft, nontender, nondistended EXT: Normal range of motion, no obvious deformity SKIN: No rashes or lesions observed on exposed skin. NEURO: Alert and oriented 4. Limitations: no limitations Course Vital Signs 08/03/21 13:45 Temperature 97.8 F Pulse Rate 87 Respiratory 20 Rate Blood Pressure 104/75 O2 Sat by Pulse 98 Oximetry Medical Decision Making - Medical Decision Making Based on the patient's presentation and physical exam, I'm concerned for a mild anxiety attack for the patient. 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 She is requesting a single dose of Ativan which I think is reasonable. She'll be reevaluated and observed for improvement in symptoms. She was in agreement this plan. On reevaluation, patient is feeling improved. She will be given a work note. Patient will be discharged home. I instructed the patient to follow up with their PCP in the next 3 days. I explained that the patient should return to the emergency department if they experience any worsening symptoms. Strict return precautions were discussed with the patient. The patient expressed understanding of these instructions. I answered all questions that the patient had. The patient was discharged home in good condition with their prescriptions and follow up information. Disposition Clinical Impression: Anxiety Disposition: HOME SELF-CARE Condition: Good Instructions (If sedation given, give patient instructions): Generalized Anxiety Disorder (ED) Is patient prescribed a controlled substance at d/c from ED?: No Referrals: Cate Tucker MD [Primary Care Provider] - 1-2 days
== END 2021-08-03 16:32 | disposition home or self-care (01) ==
LOC: EC 13:39
DX: F41.9 Anxiety disorder, unspecified (principal); F17.200 Nicotine dependence, unspecified, uncomplicated
CPT/HCPCS: 99283

== ENCOUNTER 2021-09-03 12:43 | Emergency (ER) | payer OTHER ==
[2021-09-03 13:10] VITALS: BP 131/93; PULSE 93; RESP 18; TEMP 97.1
[2021-09-03] MEDS ORDERED: LORazepam 1 MG TAB PO STA (13:29)
--- NOTE | 2021-09-03 13:29 | ED ---
Anxiety HPI - General Chief Complaint: Anxiety Stated Complaint: anxiety Time Seen by Provider: 09/03/21 13:28 Source: patient, RN notes reviewed Mode of arrival: ambulatory Limitations: no limitations - History of Present Illness Initial Comments: 26-year-old female presents emergency Department with chief complaint of anxiety. Patient states that she has bad anxiety which she takes BuSpar for some time she has increasing symptoms in which she normally needs some medications for. Denies being suicidal homicidal. Patient states he feels stable. Patient denies any physical complaints patient offers no other complaints. - Related Data Home Medications: Home Medications Medication Instructions Recorded Confirmed Benztropine Mesylate [Cogentin] 0.5 mg PO BID 03/10/20 11/09/20 OLANZapine [ZyPREXA Zydis] 10 mg PO BID 03/10/20 11/09/20 Atorvastatin [Lipitor] 20 mg PO HS 11/07/20 11/09/20 Ergocalciferol [Vitamin D2 (1250 1,250 mcg PO Q7D 11/07/20 11/09/20 Mcg = 43319 Iu)] Sertraline [Zoloft] 25 mg PO HS 11/09/20 11/09/20 Previous Rx's Medication Instructions Recorded Omeprazole [PriLOSEC] 40 mg PO AC-BRKFST #14 capsule. 11/09/20 Clindamycin HCl 300 mg PO Q6HR #40 cap 12/20/20 Clindamycin HCl 300 mg PO Q6HR #40 cap 12/30/20 Ibuprofen [Motrin] 600 mg PO Q8HR PRN #20 tab 12/30/20 Ibuprofen [Motrin] 600 mg PO Q6HR PRN #20 tab 03/19/21 LORazepam [Ativan] 1 mg PO DAILY PRN 3 Days #3 tab 07/21/21 Allergies/Adverse Reactions: Allergies Allergy/AdvReac Type Severity Reaction Status Date / Time No Known Allergies Allergy Verified 09/03/21 13:08 Review of Systems ROS Statement: Those systems with pertinent positive or pertinent negative responses have been documented in the HPI. ROS Other: All systems not noted in ROS Statement are negative. Past Medical History Past Medical History: Seizure Disorder History of Any Multi-Drug Resistant Organisms: None Reported Past Surgical History: No Surgical Hx Reported Additional Past Surgical History / Comment(s): small cysts, externally in her groin area. Past Anesthesia/Blood Transfusion Reactions: No Reported Reaction Past Psychological History: ADD/ADHD, Anxiety, Bipolar, Depression, PTSD Smoking Status: Current every day smoker Past Alcohol Use History: None Reported Past Drug Use History: Marijuana - Past Family History Mother Additional Family Medical History / Comment(s): Mother is alive at age 53 with back and knee surgery, ovarian cysts. Father History Unknown: Yes Additional Family Medical History / Comment(s): Father is alive at age 53 with active history of heroin use Sister(s) Additional Family Medical History / Comment(s): She has 3 sisters and one half- sister with no major medical problems. Patient does not have any brothers. Patient does not have any children. General Exam Limitations: no limitations General appearance: alert, in no apparent distress, anxious Head exam: Present: atraumatic, normocephalic, normal inspection Eye exam: Present: normal appearance, PERRL, EOMI. Absent: scleral icterus, conjunctival injection, periorbital swelling ENT exam: Present: normal exam, mucous membranes moist Neck exam: Present: normal inspection, full ROM. Absent: tenderness, meningismus, lymphadenopathy Respiratory exam: Present: normal lung sounds bilaterally. Absent: respiratory distress, wheezes, rales, rhonchi, stridor Cardiovascular Exam: Present: regular rate, normal rhythm, normal heart sounds. Absent: systolic murmur, diastolic murmur, rubs, gallop, clicks Neurological exam: Present: alert, oriented X3, CN II-XII intact Psychiatric exam: Present: anxious Course Vital Signs 09/03/21 13:08 Temperature 97.1 F L Pulse Rate 93 Respiratory 18 Rate Blood Pressure 131/93 O2 Sat by Pulse 98 Oximetry Medical Decision Making - Medical Decision Making Patient was given Ativan she is stable for discharge she is not suicidal or homicidal. Patient we discharged stable condition. Disposition Clinical Impression: Acute anxiety Disposition: HOME SELF-CARE Condition: Stable Instructions (If sedation given, give patient instructions): Generalized Anxiet y Disorder (ED) Additional Instructions: Please return to the Emergency Department if symptoms worsen or any other concerns. Is patient prescribed a controlled substance at d/c from ED?: No Referrals: Cate Tucker MD [Primary Care Provider] - 1-2 days Time of Disposition: 13:29
== END 2021-09-03 13:56 | disposition home or self-care (01) ==
LOC: EC 12:43
DX: F41.9 Anxiety disorder, unspecified (principal); F17.200 Nicotine dependence, unspecified, uncomplicated
CPT/HCPCS: 99284

== ENCOUNTER 2021-09-29 15:16 | Emergency (ER) | payer OTHER ==
[2021-09-29 15:21] VITALS: BP 133/84; PULSE 114; RESP 16; TEMP 97.8
--- NOTE | 2021-09-29 16:15 | ED ---
General Adult HPI - General Chief complaint: Anxiety Stated complaint: Anxiety Time Seen by Provider: 09/29/21 15:45 Source: patient Mode of arrival: ambulatory Limitations: no limitations - History of Present Illness Initial comments: This 26-year-old female with a past medical history of anxiety and depression presents emergency Department with increasing anxiety for the last 2 days. Patient states she has been diagnosed with depression and anxiety for many years, however she states she was recently placed on Ativan 0.5 mg 1 time a day. Patient states a few days this months she has been taking the medication twice a day as her anxiety has increased and she ran out of her medication 2 days ago. Patient states she has not yet called her primary care provider who does prescribe this medication. Patient states she is also seen by [facility] for her anxiety depression and does see a psychiatrist. Patient states she is on Olanzepine, Adderall, sertraline and Ativan. Patient states her anxiety symptoms are that she feels more nervous about going to work and on public. Patient denies any suicidal ideation, homicidal ideation. Patient denies any auditory or visual hallucinations. Patient denies any chest pain, shortness breath, palpitations, abdominal pain, nausea, vomiting, diarrhea, constipation, change in bowel or bladder change in appetite, headache, lightheadedness, dizziness, change in vision. - Related Data Home Medications Medication Instructions Recorded Confirmed Benztropine Mesylate [Cogentin] 0.5 mg PO BID 03/10/20 11/09/20 OLANZapine [ZyPREXA Zydis] 10 mg PO BID 03/10/20 11/09/20 Atorvastatin [Lipitor] 20 mg PO HS 11/07/20 11/09/20 Ergocalciferol [Vitamin D2 (1250 1,250 mcg PO Q7D 11/07/20 11/09/20 Mcg = 36758 Iu)] Sertraline [Zoloft] 25 mg PO HS 11/09/20 11/09/20 Previous Rx's Medication Instructions Recorded Omeprazole [PriLOSEC] 40 mg PO AC-BRKFST #14 capsule. 11/09/20 Clindamycin HCl 300 mg PO Q6HR #40 cap 12/20/20 Clindamycin HCl 300 mg PO Q6HR #40 cap 12/30/20 Ibuprofen [Motrin] 600 mg PO Q8HR PRN #20 tab 12/30/20 Ibuprofen [Motrin] 600 mg PO Q6HR PRN #20 tab 03/19/21 LORazepam [Ativan] 1 mg PO DAILY PRN 3 Days #3 tab 07/21/21 LORazepam [Ativan] 0.5 mg PO HS 3 Days #3 tab 09/29/21 Allergies Allergy/AdvReac Type Severity Reaction Status Date / Time No Known Allergies Allergy Verified 09/03/21 13:08 Review of Systems ROS Statement: Those systems with pertinent positive or pertinent negative responses have been documented in the HPI. ROS Other: All systems not noted in ROS Statement are negative. Past Medical History Past Medical History: Seizure Disorder History of Any Multi-Drug Resistant Organisms: None Reported Past Surgical History: No Surgical Hx Reported Additional Past Surgical History / Comment(s): small cysts, externally in her groin area. Past Anesthesia/Blood Transfusion Reactions: No Reported Reaction Past Psychological History: ADD/ADHD, Anxiety, Bipolar, Depression, PTSD Smoking Status: Current every day smoker Past Alcohol Use History: None Reported Past Drug Use History: Marijuana - Past Family History Mother Additional Family Medical History / Comment(s): Mother is alive at age 53 with back and knee surgery, ovarian cysts. Father History Unknown: Yes Additional Family Medical History / Comment(s): Father is alive at age 53 with active history of heroin use Sister(s) Additional Family Medical History / Comment(s): She has 3 sisters and one half- sister with no major medical problems. Patient does not have any brothers. Patient does not have any children. General Exam Limitations: no limitations General appearance: alert, in no apparent distress Head exam: Present: atraumatic, normocephalic, normal inspection Eye exam: Present: normal appearance, PERRL, EOMI. Absent: scleral icterus, conjunctival injection, periorbital swelling ENT exam: Present: normal exam, mucous membranes moist Neck exam: Present: normal inspection, full ROM. Absent: tenderness, meningismus, lymphadenopathy Respiratory exam: Present: normal lung sounds bilaterally. Absent: respiratory distress, wheezes, rales, rhonchi, stridor Cardiovascular Exam: Present: regular rate, normal rhythm, normal heart sounds. Absent: systolic murmur, diastolic murmur, rubs, gallop, clicks GI/Abdominal exam: Present: soft, normal bowel sounds. Absent: distended, tend erness, guarding, rebound, rigid Extremities exam: Present: normal inspection, full ROM, normal capillary refill. Absent: tenderness, pedal edema, joint swelling, calf tenderness Back exam: Present: normal inspection, full ROM. Absent: CVA tenderness (R), CVA tenderness (L), paraspinal tenderness, vertebral tenderness Neurological exam: Present: alert, oriented X3, CN II-XII intact Psychiatric exam: Present: normal affect, normal mood Skin exam: Present: warm, dry, intact, normal color. Absent: rash Course Vital Signs 09/29/21 15:19 Temperature 97.8 F Pulse Rate 114 H Respiratory 16 Rate Blood Pressure 133/84 O2 Sat by Pulse 98 Oximetry Medical Decision Making - Medical Decision Making This 26-year-old female presents emergency department with increasing anxiety over the last 1-2 days. Patient states she ran out of her 0.5 mg Ativan that she supposed take one time a day. Patient admitted to taking twice a day multiple times this month as her anxiety has been increased. Prescription for 3 tablets of 0.5 mg Ativan given to patient. Instructed patient to call her primary care provider to schedule a follow-up appointment in the next 1-2 days. Strict return precautions were discussed. Patient verbally agreed to plan. Patient sent home in stable condition. Case discussed in detail my attending, . Disposition Clinical Impression: Anxiety Disposition: HOME SELF-CARE Condition: Stable Instructions (If sedation given, give patient instructions): Generalized Anxiety Disorder (ED) Additional Instructions: Please follow-up with your primary care doctor in next 1-2 days. Return to the emergency department with any new, worsening or concerning symptoms. Take Ativan 0.5 mg 1 time a day for 3 days. Prescriptions: LORazepam [Ativan] 0.5 mg PO HS 3 Days #3 tab Is patient prescribed a controlled substance at d/c from ED?: Yes If prescribed controlled substance>3 days was MAPS reviewed?: Prescribed <3 Days Referrals: Cate Tucker MD [Primary Care Provider] - 1-2 days Time of Disposition: 16:21
== END 2021-09-29 16:41 | disposition home or self-care (01) ==
LOC: EC 15:16
DX: F41.9 Anxiety disorder, unspecified (principal); F17.200 Nicotine dependence, unspecified, uncomplicated
CPT/HCPCS: 99284

== ENCOUNTER 2021-10-11 00:54 | Emergency (ER) | payer OTHER ==
[2021-10-11 00:57] VITALS: TEMP 97.6
[2021-10-11] MEDS ORDERED: KETOROLAC 15 MG/ML 1 ML VIAL IM STA (01:06)
[2021-10-11] MEDS ORDERED: HYDROcodone/APAP 5-325MG 1 EACH TAB PO STA (01:06)
[2021-10-11] MEDS ORDERED: PENICILLIN V POTASSIUM 250 MG TAB PO STA (01:06)
[2021-10-11] MEDS ORDERED: ACET/COD 300 MG/30 MG STARTER PACK 6 TAB BTL PO STA (01:08)
--- NOTE | 2021-10-11 01:12 | ED ---
ENT HPI - General Chief complaint: Dental/Oral Stated complaint: Dental Pain Time Seen by Provider: 10/11/21 01:00 Source: patient, RN notes reviewed Mode of arrival: ambulatory Limitations: no limitations - History of Present Illness Initial comments: Patient comes ER complaining of pain to her right lower molar area. Patient states she had a dental extraction of her right lower wisdom tooth on Wednesday in [place]. Patient states she's been in pain since then. She did get a prescription for [place] which she ran out of on . Patient states she is still having pain to the area. Patient denies any fever or chills. No difficulty swallowing. She states that movement and palpation or touching the area exacerbates the pain. No neck stiffness. No skin rashes. No headache, no fever or chills, no changes in vision or hearing, no sore throat or difficulty with speech, no neck pain, no chest pain or shortness of breath, no abdominal pain, no nausea or vomiting, no changes in urination or bowel movements, no numbness or tingling, no extremity pain, no skin rashes or lesions. Patient has been trying [id number] anti-inflammatory medication ibuprofen at home. MD complaint: tooth pain - Related Data Home Medications Medication Instructions Recorded Confirmed Benztropine Mesylate [Cogentin] 0.5 mg PO BID 03/10/20 11/09/20 OLANZapine [ZyPREXA Zydis] 10 mg PO BID 03/10/20 11/09/20 Atorvastatin [Lipitor] 20 mg PO HS 11/07/20 11/09/20 Ergocalciferol [Vitamin D2 (1250 1,250 mcg PO Q7D 11/07/20 11/09/20 Mcg = 82995 Iu)] Sertraline [Zoloft] 25 mg PO HS 11/09/20 11/09/20 Previous Rx's Medication Instructions Recorded Omeprazole [PriLOSEC] 40 mg PO RENETTA-AYOKFSRobert #14 capsule. 11/09/20 Clindamycin HCl 300 mg PO Q6HR #40 cap 12/20/20 Clindamycin HCl 300 mg PO Q6HR #40 cap 12/30/20 Ibuprofen [Motrin] 600 mg PO Q8HR PRN #20 tab 12/30/20 Ibuprofen [Motrin] 600 mg PO Q6HR PRN #20 tab 03/19/21 LORazepam [Ativan] 1 mg PO DAILY PRN 3 Days #3 tab 07/21/21 LORazepam [Ativan] 0.5 mg PO HS 3 Days #3 tab 09/29/21 Penicillin V Potassium [Pen Vee K] 500 mg PO QID #40 tablet 10/11/21 Allergies Allergy/AdvReac Type Severity Reaction Status Date / Time No Known Allergies Allergy Verified 10/11/21 00:57 Review of Systems ROS Statement: Those systems with pertinent positive or pertinent negative responses have been documented in the HPI. ROS Other: All systems not noted in ROS Statement are negative. Past Medical History Past Medical History: Seizure Disorder History of Any Multi-Drug Resistant Organisms: None Reported Past Surgical History: No Surgical Hx Reported Additional Past Surgical History / Comment(s): small cysts, externally in her groin area. Past Anesthesia/Blood Transfusion Reactions: No Reported Reaction Past Psychological History: ADD/ADHD, Anxiety, Bipolar, Depression, PTSD Smoking Status: Current every day smoker Past Alcohol Use History: None Reported Past Drug Use History: Marijuana - Past Family History Mother Additional Family Medical History / Comment(s): Mother is alive at age 53 with back and knee surgery, ovarian cysts. Father History Unknown: Yes Additional Family Medical History / Comment(s): Father is alive at age 53 with active history of heroin use Sister(s) Additional Family Medical History / Comment(s): She has 3 sisters and one half-sister with no major medical problems. Patient does not have any brothers. Patient does not have any children. General Exam Limitations: no limitations General appearance: alert, in no apparent distress Head exam: Present: atraumatic, normocephalic, normal inspection Eye exam: Present: normal appearance, PERRL, EOMI. Absent: scleral icterus, conjunctival injection, periorbital swelling ENT exam: Present: mucous membranes moist, TM's normal bilaterally, normal external ear exam, other (Patient has an extraction site to be tooth #32 area. Some bruising noted to the area. No evidence of purulent drainage. Minimal erythema. No abnormality elsewhere. Airway is patent.). Absent: mucous membranes dry Neck exam: Present: normal inspection, full ROM. Absent: tenderness, meningismus, lymphadenopathy Respiratory exam: Present: normal lung sounds bilaterally. Absent: respiratory distress, wheezes, rales, rhonchi, stridor Cardiovascular Exam: Present: regular rate, normal rhythm, normal heart sounds. Absent: systolic murmur, diastolic murmur, rubs, gallop, clicks GI/Abdominal exam: Present: soft, normal bowel sounds. Absent: distended, tenderness, guarding, rebound, rigid Extremities exam: Present: normal inspection, full ROM, normal capillary refill. Absent: tenderness, pedal edema, joint swelling, calf tenderness Back exam: Present: normal inspection Neurological exam: Present: alert, oriented X3, CN II-XII intact Psychiatric exam: Present: normal affect, normal mood Skin exam: Present: warm, dry, intact, normal color. Absent: rash Course Vital Signs 10/11/21 00:55 Temperature 97.6 F Pulse Rate 101 H Respiratory 20 Rate Blood Pressure 121/84 O2 Sat by Pulse 98 Oximetry Medical Decision Making - Medical Decision Making We'll treat with pain medication as well as Pen-Vee K. Patient told to follow- up with the dentist on Wednesday. Patient voiced understanding. All questions answered. Patient in no distress. Vital signs stable, patient afebrile. Patient counseled on smoking cessation The case was discussed in detail with ED attending physician. Presentation, findings, treatment plan discussed in detail. Dr. Wang Patient was told to return to the ER for any signs or symptoms worsen. Told to return immediately if any other problems arise. All questions answered. Treatment plan discussed. Patient in agreement Every effort has been made to ensure accuracy of this dictation. However, due to the limitations of electronic medical records and dictation devices, errors in charting still occur. Disposition Clinical Impression: Pain, dental Narrative: Recent dental extraction Disposition: HOME SELF-CARE Instructions (If sedation given, give patient instructions): Toothache (ED) Additional Instructions: Follow-up with your regular physician as directed. Return to the ER immediately if any symptoms worsen, new symptoms arise, or any other problems develop. Call the dentist Wednesday to be rechecked as soon as possible. Prescriptions: Penicillin V Potassium [Pen Vee K] 500 mg PO QID #40 tablet Is patient prescribed a controlled substance at d/c from ED?: No Referrals: Cate Tucker MD [Primary Care Provider] - 1-2 days Time of Disposition: 01:12
[2021-10-11 01:50] VITALS: BP 128/87; PULSE 98; RESP 18
== END 2021-10-11 01:51 | disposition home or self-care (01) ==
LOC: EC 00:54
DX: K08.89 Other specified disorders of teeth and supporting structures (principal); F90.9 Attention-deficit hyperactivity disorder, unspecified type; F41.9 Anxiety disorder, unspecified; F31.9 Bipolar disorder, unspecified; F43.10 Post-traumatic stress disorder, unspecified; F17.200 Nicotine dependence, unspecified, uncomplicated; F12.90 Cannabis use, unspecified, uncomplicated
CPT/HCPCS: 96372; 99282

== ENCOUNTER 2021-11-21 13:30 | Emergency (ER) | payer OTHER ==
[2021-11-21 13:47] VITALS: BP 117/87; PULSE 88; RESP 20; TEMP 98
[2021-11-21] MEDS ORDERED: LORazepam 1 MG TAB PO STA (13:56)
--- NOTE | 2021-11-21 14:00 | ED ---
General Adult HPI - General Chief complaint: Recheck/Abnormal Lab/Rx Stated complaint: Anxiety Time Seen by Provider: 11/21/21 13:49 Source: patient, RN notes reviewed Mode of arrival: ambulatory Limitations: no limitations - History of Present Illness Initial comments: Patient is a pleasant 26-year-old female presenting to the emergency department with concerns with anxiety. Patient ran out of her medication approximately one week ago. Patient has been sleeping more than normal. Patient is tolerating diet like normal. Patient denies suicidal thoughts. Patient states anxiety is chronic. Patient states her doctor would like her to see a psychiatrist in the future however was not sent to the hospital several typically to see a psychiatrist today. Patient does not feel she needs to see his psychiatrist today or be admitted to the hospital. - Related Data Home Medications Medication Instructions Recorded Confirmed Benztropine Mesylate [Cogentin] 0.5 mg PO BID 03/10/20 11/09/20 OLANZapine [ZyPREXA Zydis] 10 mg PO BID 03/10/20 11/09/20 Atorvastatin [Lipitor] 20 mg PO HS 11/07/20 11/09/20 Ergocalciferol [Vitamin D2 (1250 1,250 mcg PO Q7D 11/07/20 11/09/20 Mcg = 80064 Iu)] Sertraline [Zoloft] 25 mg PO HS 11/09/20 11/09/20 Previous Rx's Medication Instructions Recorded Omeprazole [PriLOSEC] 40 mg PO AC-BRKFST #14 capsule. 11/09/20 Clindamycin HCl 300 mg PO Q6HR #40 cap 12/20/20 Clindamycin HCl 300 mg PO Q6HR #40 cap 12/30/20 Ibuprofen [Motrin] 600 mg PO Q8HR PRN #20 tab 12/30/20 Ibuprofen [Motrin] 600 mg PO Q6HR PRN #20 tab 03/19/21 LORazepam [Ativan] 1 mg PO DAILY PRN 3 Days #3 tab 07/21/21 LORazepam [Ativan] 0.5 mg PO HS 3 Days #3 tab 09/29/21 Penicillin V Potassium [Pen Vee K] 500 mg PO QID #40 tablet 10/11/21 Allergies Allergy/AdvReac Type Severity Reaction Status Date / Time No Known Allergies Allergy Verified 11/21/21 13:47 Review of Systems ROS Statement: Those systems with pertinent positive or pertinent negative responses have been documented in the HPI. ROS Other: All systems not noted in ROS Statement are negative. Constitutional: Denies: fever Eyes: Denies: eye pain ENT: Denies: ear pain Respiratory: Denies: cough Cardiovascular: Denies: chest pain Endocrine: Denies: fatigue Gastrointestinal: Denies: abdominal pain Genitourinary: Denies: dysuria Musculoskeletal: Denies: back pain Skin: Denies: rash Neurological: Denies: weakness Psychiatric: Reports: anxiety Past Medical History Past Medical History: Seizure Disorder History of Any Multi-Drug Resistant Organisms: None Reported Past Surgical History: No Surgical Hx Reported Additional Past Surgical History / Comment(s): small cysts, externally in her groin area. Past Anesthesia/Blood Transfusion Reactions: No Reported Reaction Past Psychological History: ADD/ADHD, Anxiety, Bipolar, Depression, PTSD Smoking Status: Current every day smoker Past Alcohol Use History: None Reported Past Drug Use History: Marijuana - Past Family History Mother Additional Family Medical History / Comment(s): Mother is alive at age 53 with back and knee surgery, ovarian cysts. Father History Unknown: Yes Additional Family Medical History / Comment(s): Father is alive at age 53 with active history of heroin use Sister(s) Additional Family Medical History / Comment(s): She has 3 sisters and one half- sister with no major medical problems. Patient does not have any brothers. Patient does not have any children. General Exam Limitations: no limitations General appearance: alert, in no apparent distress Head exam: Present: normocephalic Eye exam: Present: normal appearance Neck exam: Present: normal inspection Respiratory exam: Present: normal lung sounds bilaterally Cardiovascular Exam: Present: regular rate, normal rhythm Extremities exam: Present: normal inspection Neurological exam: Present: alert Psychiatric exam: Present: normal affect, normal mood Skin exam: Present: normal color Course Vital Signs 11/21/21 13:43 Temperature 98.0 F Pulse Rate 88 Respiratory 20 Rate Blood Pressure 117/87 O2 Sat by Pulse 97 Oximetry Medical Decision Making - Medical Decision Making Patient is receptive to having half of Ativan here and the other half to take home for future. Disposition Clinical Impression: Anxiety Disposition: HOME SELF-CARE Condition: Stable Instructions (If sedation given, give patient instructions): Anxiety (ED) Additional Instructions: You may take the additional Ativan home to use in the future. Return for thoughts of self-harm, worsening symptoms or other concerns. Please follow-up with primary care physician in the next day or 2 for recheck. Please follow-up with mental health services, list provided. Is patient prescribed a controlled substance at d/c from ED?: No Referrals: Cate Tucker MD [Primary Care Provider] - 1-2 days Time of Disposition: 13:58
== END 2021-11-21 14:14 | disposition home or self-care (01) ==
LOC: EC 13:30
DX: F41.9 Anxiety disorder, unspecified (principal); F17.200 Nicotine dependence, unspecified, uncomplicated
CPT/HCPCS: 99283

== ENCOUNTER 2021-11-23 14:26 | Emergency (ER) | payer OTHER ==
[2021-11-23 14:30] VITALS: BP 135/94; PULSE 78; RESP 16; TEMP 97.6
[2021-11-23] MEDS ORDERED: LORazepam 1 MG TAB PO STA (14:40)
--- NOTE | 2021-11-23 14:43 | ED ---
General Adult HPI - General Chief complaint: Anxiety Stated complaint: Anxiety Time Seen by Provider: 11/23/21 14:30 Source: patient, RN notes reviewed, old records reviewed Mode of arrival: ambulatory Limitations: no limitations - History of Present Illness Initial comments: This is a 26-year-old female presents emergency Department states she's been out of her Ativan for about a week and today she had a panic attack was unable to go to work. Patient states she just feels extremely anxious at this point but has no physical symptoms. She denies any chest pain palpitations difficulty breathing shortness of breath. Patient denies any headache patient denies numbness weakness. Patient has lightheadedness or dizziness. Patient denies any recent fever chills or cough per patient denies abdominal pain patient denies nausea vomiting diarrhea per patient states she is not because she is not having any sexual relations. - Related Data Home Medications Medication Instructions Recorded Confirmed Benztropine Mesylate [Cogentin] 0.5 mg PO BID 03/10/20 11/09/20 OLANZapine [ZyPREXA Zydis] 10 mg PO BID 03/10/20 11/09/20 Atorvastatin [Lipitor] 20 mg PO HS 11/07/20 11/09/20 Ergocalciferol [Vitamin D2 (1250 1,250 mcg PO Q7D 11/07/20 11/09/20 Mcg = 46835 Iu)] Sertraline [Zoloft] 25 mg PO HS 11/09/20 11/09/20 Previous Rx's Medication Instructions Recorded Omeprazole [PriLOSEC] 40 mg PO RENETTA-AYOKFSRobert #14 capsule. 11/09/20 Clindamycin HCl 300 mg PO Q6HR #40 cap 12/20/20 Clindamycin HCl 300 mg PO Q6HR #40 cap 12/30/20 Ibuprofen [Motrin] 600 mg PO Q8HR PRN #20 tab 12/30/20 Ibuprofen [Motrin] 600 mg PO Q6HR PRN #20 tab 03/19/21 LORazepam [Ativan] 1 mg PO DAILY PRN 3 Days #3 tab 07/21/21 LORazepam [Ativan] 0.5 mg PO HS 3 Days #3 tab 09/29/21 Penicillin V Potassium [Pen Vee K] 500 mg PO QID #40 tablet 10/11/21 Allergies Allergy/AdvReac Type Severity Reaction Status Date / Time No Known Allergies Allergy Verified 11/23/21 14:30 Review of Systems ROS Statement: Those systems with pertinent positive or pertinent negative responses have been documented in the HPI. ROS Other: All systems not noted in ROS Statement are negative. Past Medical History Past Medical History: Seizure Disorder History of Any Multi-Drug Resistant Organisms: None Reported Past Surgical History: No Surgical Hx Reported Additional Past Surgical History / Comment(s): small cysts, externally in her groin area. Past Anesthesia/Blood Transfusion Reactions: No Reported Reaction Past Psychological History: ADD/ADHD, Anxiety, Bipolar, Depression, PTSD Smoking Status: Current every day smoker Past Alcohol Use History: None Reported Past Drug Use History: Marijuana - Past Family History Mother Additional Family Medical History / Comment(s): Mother is alive at age 53 with back and knee surgery, ovarian cysts. Father History Unknown: Yes Additional Family Medical History / Comment(s): Father is alive at age 53 with active history of heroin use Sister(s) Additional Family Medical History / Comment(s): She has 3 sisters and one half- sister with no major medical problems. Patient does not have any brothers. Patient does not have any children. General Exam - General Exam Comments Initial Comments: GENERAL: Patient is well-developed and well-nourished. Patient is nontoxic and well- hydrated and is in no acute distress. ENT: Neck is soft and supple. No significant lymphadenopathy is noted. Oropharynx is clear. Moist mucous membranes. Neck has full range of motion without eliciting any pain. EYES: The sclera were anicteric and conjunctiva were pink and moist. Extraocular movements were intact and pupils were equal round and reactive to light. Eyelids were unremarkable. PULMONARY: Unlabored respirations. Good breath sounds bilaterally. No audible rales rhonchi or wheezing was noted. CARDIOVASCULAR: There is a regular rate and rhythm without any murmurs gallops or rubs. ABDOMEN: Soft and nontender with normal bowel sounds. SKIN: Skin is clear with no lesions or rashes and otherwise unremarkable. NEUROLOGIC: Patient is alert and oriented x3. Cranial nerves II through XII are grossly intact. Motor and sensory are also intact. Normal speech, volume and content. Symmetrical smile. MUSCULOSKELETAL: Normal extremities with adequate strength and full range of motion. LYMPHATICS: No significant lymphadenopathy is noted PSYCHIATRIC: Patient is mildly anxious Limitations: no limitations Course Vital Signs 11/23/21 14:27 Temperature 97.6 F Pulse Rate 78 Respiratory 16 Rate Blood Pressure 135/94 O2 Sat by Pulse 97 Oximetry Disposition Clinical Impression: Acute anxiety Disposition: HOME SELF-CARE Instructions (If sedation given, give patient instructions): Generalized Anxiety Disorder (ED) Is patient prescribed a controlled substance at d/c from ED?: No Referrals: Cate Tucker MD [Primary Care Provider] - 1-2 days Time of Disposition: 14:43
== END 2021-11-23 14:55 | disposition home or self-care (01) ==
LOC: EC 14:26
DX: F41.9 Anxiety disorder, unspecified (principal); F17.200 Nicotine dependence, unspecified, uncomplicated
CPT/HCPCS: 99283

== ENCOUNTER 2022-06-03 18:15 | Emergency (ER) | payer OTHER ==
[2022-06-03] MEDS ORDERED: LORazepam 1 MG TAB PO STA (19:34)
--- NOTE | 2022-06-03 19:38 | ED ---
Psych HPI - General Chief Complaint: Psychiatric Symptoms Stated Complaint: anxiety Time Seen by Provider: 06/03/22 19:31 Source: patient, RN notes reviewed Mode of arrival: ambulatory - History of Present Illness Initial Comments: This is a pleasant 27-year-old female with a history of anxiety. Patient states she was taken off Klonopin 2 weeks ago by her psychiatrist after she ran out of medication 3 days early. Patient is on sertraline and hydroxyzine as well. Patient states that she is having generalized anxiety. Patient states she has to go in to work tomorrow and is anxious about that. She denying any chest pain or shortness of breath. No fever or chills. No homicidality or suicidality. No headache, no fever or chills, no changes in vision or hearing, no sore throat or difficulty with speech, no neck pain, no chest pain or shortness of breath, no abdominal pain, no nausea or vomiting, no changes in urination or bowel movements, no numbness or tingling, no extremity pain, no skin rashes or lesions. Past medical, surgical, social, and family history reviewed. Denies chance of - Related Data Home Medications Medication Instructions Recorded Confirmed Benztropine Mesylate [Cogentin] 0.5 mg PO BID 03/10/20 11/09/20 OLANZapine [ZyPREXA Zydis] 10 mg PO BID 03/10/20 11/09/20 Atorvastatin [Lipitor] 20 mg PO HS 11/07/20 11/09/20 Ergocalciferol [Vitamin D2 (1250 1,250 mcg PO Q7D 11/07/20 11/09/20 Mcg = 81304 Iu)] Sertraline [Zoloft] 25 mg PO HS 11/09/20 11/09/20 Previous Rx's Medication Instructions Recorded Omeprazole [PriLOSEC] 40 mg PO MAGGYKFSRobert #14 capsule. 11/09/20 clindamycin HCL [Clindamycin HCl] 300 mg PO Q6HR #40 cap 12/20/20 Ibuprofen [Motrin] 600 mg PO Q8HR PRN #20 tab 12/30/20 clindamycin HCL [Clindamycin HCl] 300 mg PO Q6HR #40 cap 12/30/20 Ibuprofen [Motrin] 600 mg PO Q6HR PRN #20 tab 03/19/21 LORazepam [Ativan] 1 mg PO DAILY PRN 3 Days #3 tab 07/21/21 LORazepam [Ativan] 0.5 mg PO HS 3 Days #3 tab 09/29/21 Penicillin V Potassium [Pen Vee K] 500 mg PO QID #40 tablet 10/11/21 Allergies Allergy/AdvReac Type Severity Reaction Status Date / Time No Known Allergies Allergy Verified 05/22/22 11:07 Review of Systems ROS Statement: Those systems with pertinent positive or pertinent negative responses have been documented in the HPI. ROS Other: All systems not noted in ROS Statement are negative. Past Medical History Past Medical History: Seizure Disorder History of Any Multi-Drug Resistant Organisms: None Reported Past Surgical History: No Surgical Hx Reported Additional Past Surgical History / Comment(s): small cysts, externally in her groin area. Past Anesthesia/Blood Transfusion Reactions: No Reported Reaction Past Psychological History: ADD/ADHD, Anxiety, Bipolar, Depression, PTSD Smoking Status: Current every day smoker Past Alcohol Use History: None Reported Past Drug Use History: Marijuana - Past Family History Mother Additional Family Medical History / Comment(s): Mother is alive at age 53 with back and knee surgery, ovarian cysts. Father History Unknown: Yes Additional Family Medical History / Comment(s): Father is alive at age 53 with active history of heroin use Sister(s) Additional Family Medical History / Comment(s): She has 3 sisters and one half- sister with no major medical problems. Patient does not have any brothers. Patient does not have any children. General Exam - General Exam Comments Initial Comments: Patient does not appear to be ill or toxic. Vital signs stable, patient afebrile Limitations: no limitations General appearance: alert, in no apparent distress Head exam: Present: atraumatic, normocephalic, normal inspection Eye exam: Present: normal appearance, PERRL, EOMI. Absent: scleral icterus, conjunctival injection, periorbital swelling ENT exam: Present: normal exam, normal oropharynx, mucous membranes moist, normal external ear exam Neck exam: Present: normal inspection, full ROM. Absent: tenderness, meningismus, lymphadenopathy Respiratory exam: Present: normal lung sounds bilaterally. Absent: respiratory distress, wheezes, rales, rhonchi, stridor, chest wall tenderness, accessory muscle use Cardiovascular Exam: Present: regular rate, normal rhythm, normal heart sounds. Absent: systolic murmur, diastolic murmur, rubs, gallop, clicks GI/Abdominal exam: Present: soft, normal bowel sounds. Absent: distended, tenderness, guarding, rebound, rigid Extremities exam: Present: normal inspection, full ROM, normal capillary refill. Absent: tenderness, pedal edema, joint swelling, calf tenderness Back exam: Present: normal inspection Neurological exam: Present: alert, oriented X3, CN II-XII intact Psychiatric exam: Present: normal affect, anxious. Absent: depressed, agitated, homicidal ideation, suicidal ideation Skin exam: Present: warm, dry, intact, normal color. Absent: rash Course Vital Signs 06/03/22 19:26 Temperature 98 F Pulse Rate 78 Respiratory 16 Rate Blood Pressure 126/89 O2 Sat by Pulse 96 Oximetry Medical Decision Making - Medical Decision Making Patient presents requesting a dose of anxiety medication. Patient began sertraline hydroxyzine. No suicidality or homicidality. Patient is symptomatic otherwise. Was taken off of her Klonopin 2 weeks ago after she ran short 3 days early. I did agree to give the patient 1 dose here. Of course if she has any controlled substance prescribed further she'll need to get that from her primary care physician or her psychiatrist. She voiced understanding of this. Patient was told to return to the ER for any signs or symptoms worsen. Told to return immediately if any other problems arise. All questions answered. Treatment plan discussed. Patient in agreement Every effort has been made to ensure accuracy of this dictation. However, due to the limitations of electronic medical records and dictation devices, errors in charting still occur. Arise or Dr. Pritchett Disposition Clinical Impression: Anxiety Disposition: HOME SELF-CARE Condition: Good Instructions (If sedation given, give patient instructions): Anxiety (ED) Additional Instructions: Follow-up with your regular physician as directed. Return to the ER immediately if any symptoms worsen, new symptoms arise, or any other problems develop. Is patient prescribed a controlled substance at d/c from ED?: No Referrals: Cate Tucker MD [Primary Care Provider] - 1-2 days Time of Disposition: 19:38
[2022-06-03 20:05] VITALS: BP 122/58; PULSE 72; RESP 18; TEMP 98.1
== END 2022-06-03 20:04 | disposition home or self-care (01) ==
LOC: EC 18:15
DX: F41.9 Anxiety disorder, unspecified (principal); F90.9 Attention-deficit hyperactivity disorder, unspecified type; F31.9 Bipolar disorder, unspecified; F17.200 Nicotine dependence, unspecified, uncomplicated; F12.90 Cannabis use, unspecified, uncomplicated
CPT/HCPCS: 99282

== ENCOUNTER 2022-06-07 10:09 | Emergency (ER) | payer OTHER ==
[2022-06-07 10:13] VITALS: TEMP 98.1
[2022-06-07] MEDS ORDERED: clonazePAM 0.5 MG TAB PO STA ×2 (10:57→11:41)
--- NOTE | 2022-06-07 11:01 | ED ---
Anxiety HPI - General Chief Complaint: Anxiety Stated Complaint: Anxiety Time Seen by Provider: 06/07/22 10:14 Source: patient, RN notes reviewed Mode of arrival: ambulatory - History of Present Illness Initial Comments: This is a 27-year-old female who presents to the emergency department for anxiety. Patient states that approximately one month ago, she was taken off of her Klonopin and is not entirely sure why. She had been on 0.125 mg twice daily, which she states is working very well for her. She is taking Sertraline and hydroxyzine, however her anxiety has been persistent. Denies any suicidal or homicidal ideations. She does see her therapist tomorrow and her psychiatrist 2 weeks after that. States that she will discuss this with her therapist. Denies any fevers, chills, sore throat, cough, dyspnea, chest pain, palpitations, abdominal pain, nausea, vomiting, diarrhea, back pain, or headaches. MD Complaint: anxiety Previous History of Same: Yes - Related Data Home Medications: Home Medications Medication Instructions Recorded Confirmed Benztropine Mesylate [Cogentin] 0.5 mg PO BID 03/10/20 11/09/20 OLANZapine [ZyPREXA Zydis] 10 mg PO BID 03/10/20 11/09/20 Atorvastatin [Lipitor] 20 mg PO HS 11/07/20 11/09/20 Ergocalciferol [Vitamin D2 (1250 1,250 mcg PO Q7D 11/07/20 11/09/20 Mcg = 16160 Iu)] Sertraline [Zoloft] 25 mg PO HS 11/09/20 11/09/20 Previous Rx's Medication Instructions Recorded Omeprazole [PriLOSEC] 40 mg PO AC-BRKFST #14 capsule. 11/09/20 clindamycin HCL [Clindamycin HCl] 300 mg PO Q6HR #40 cap 12/20/20 Ibuprofen [Motrin] 600 mg PO Q8HR PRN #20 tab 12/30/20 clindamycin HCL [Clindamycin HCl] 300 mg PO Q6HR #40 cap 12/30/20 Ibuprofen [Motrin] 600 mg PO Q6HR PRN #20 tab 03/19/21 LORazepam [Ativan] 1 mg PO DAILY PRN 3 Days #3 tab 07/21/21 LORazepam [Ativan] 0.5 mg PO HS 3 Days #3 tab 09/29/21 Penicillin V Potassium [Pen Vee K] 500 mg PO QID #40 tablet 10/11/21 clonazePAM [Klonopin ODT] 0.25 mg PO BID #4 tab 06/07/22 Allergies/Adverse Reactions: Allergies Allergy/AdvReac Type Severity Reaction Status Date / Time No Known Allergies Allergy Verified 06/07/22 10:13 Review of Systems ROS Statement: Those systems with pertinent positive or pertinent negative responses have been documented in the HPI. ROS Other: All systems not noted in ROS Statement are negative. Past Medical History Past Medical History: Seizure Disorder History of Any Multi-Drug Resistant Organisms: None Reported Past Surgical History: No Surgical Hx Reported Additional Past Surgical History / Comment(s): small cysts, externally in her groin area. Past Anesthesia/Blood Transfusion Reactions: No Reported Reaction Past Psychological History: ADD/ADHD, Anxiety, Bipolar, Depression, PTSD Smoking Status: Current every day smoker Past Alcohol Use History: None Reported Past Drug Use History: Marijuana - Past Family History Mother Additional Family Medical History / Comment(s): Mother is alive at age 53 with back and knee surgery, ovarian cysts. Father History Unknown: Yes Additional Family Medical History / Comment(s): Father is alive at age 53 with active history of heroin use Sister(s) Additional Family Medical History / Comment(s): She has 3 sisters and one half- sister with no major medical problems. Patient does not have any brothers. Patient does not have any children. General Exam Limitations: no limitations General appearance: alert, anxious Head exam: Present: atraumatic, normocephalic, normal inspection Respiratory exam: Present: normal lung sounds bilaterally. Absent: respiratory distress, wheezes, rales, rhonchi, stridor Cardiovascular Exam: Present: regular rate, normal rhythm, normal heart sounds. Absent: systolic murmur, diastolic murmur, rubs, gallop, clicks Neurological exam: Present: alert, oriented X3, CN II-XII intact Psychiatric exam: Present: anxious Skin exam: Present: warm, dry, intact, normal color. Absent: rash Course Vital Signs 06/07/22 06/07/22 10:10 12:28 Temperature 98.1 F Pulse Rate 88 78 Respiratory 16 18 Rate Blood Pressure 126/84 126/92 O2 Sat by Pulse 97 98 Oximetry Medical Decision Making - Medical Decision Making This is a 27-year-old female who presents to the emergency department for anxiety. She was given a dose of Klonopin in the emergency department. 4 tablets were sent to her pharmacy, advised she break these in half and use them very sparingly. Discussed that she will need to have a conversation with her therapist and psychiatrist about the situation to see if the klonopin can be resumed or if they can find an alternative medication so that she does not cont inue returning to the emergency department for medication. Return precautions reviewed in depth, the patient is instructed to return to the emergency department with any new, worsening, or concerning symptoms. Patient verbalized understanding. This case was discussed in detail with the attending ED physician. Presentation, findings, and treatment plan discussed in detail as well. Disposition Clinical Impression: Generalized anxiety disorder Disposition: HOME SELF-CARE Instructions (If sedation given, give patient instructions): Generalized Anxiety Disorder (ED) Additional Instructions: Return to the emergency department with any new, worsening, or concerning symptoms. Take the Klonopin as prescribed and split the tablets in half if you need to. Make sure you follow up with your therapist, psychiatrist, and primary care provider to discuss either resuming this medication or alternative options. Follow up with your primary care provider in 1-2 days. Prescriptions: clonazePAM [Klonopin ODT] 0.25 mg PO BID #4 tab Is patient prescribed a controlled substance at d/c from ED?: Yes If prescribed controlled substance>3 days was MAPS reviewed?: Prescribed <3 Days Referrals: Cate Tucker MD [Primary Care Provider] - 1-2 days
[2022-06-07 12:29] VITALS: BP 126/92; PULSE 78; RESP 18
== END 2022-06-07 12:29 | disposition home or self-care (01) ==
LOC: EC 10:09
DX: F41.1 Generalized anxiety disorder (principal); F90.9 Attention-deficit hyperactivity disorder, unspecified type; F31.9 Bipolar disorder, unspecified; F41.9 Anxiety disorder, unspecified; F17.200 Nicotine dependence, unspecified, uncomplicated; F12.90 Cannabis use, unspecified, uncomplicated
CPT/HCPCS: 99283

== ENCOUNTER 2022-06-15 12:03 | Emergency (ER) | payer OTHER ==
[2022-06-15 12:49] VITALS: RESP 18
[2022-06-15] MEDS ORDERED: clonazePAM 0.5 MG TAB PO STA (14:48)
--- NOTE | 2022-06-15 14:51 | ED ---
General Adult HPI - General Chief complaint: Anxiety Stated complaint: anxiety Time Seen by Provider: 06/15/22 14:35 Source: patient, RN notes reviewed, old records reviewed Mode of arrival: ambulatory Limitations: no limitations - History of Present Illness Initial comments: Patient is a 27-year-old female presents emergency Department complaining of a nxiety and is requesting medication refill. He has been without her Klonopin at home. States she is feeling more anxious. States she was seen here recently was given a three-day prescription for Klonopin. States this is all she is asking for. States her anxiety is somewhat controllable but it is more controlled on Klonopin. Is working to obtain a longer term prescription for her PCP. Denies any suicidal, homicidal ideations, attempts, plans. Denies any visual or auditory hallucinations. She presents for further evaluation at this time. Has no other acute complaints at this time. - Related Data Home Medications Medication Instructions Recorded Confirmed Benztropine Mesylate [Cogentin] 0.5 mg PO BID 03/10/20 11/09/20 OLANZapine [ZyPREXA Zydis] 10 mg PO BID 03/10/20 11/09/20 Atorvastatin [Lipitor] 20 mg PO HS 11/07/20 11/09/20 Ergocalciferol [Vitamin D2 (1250 1,250 mcg PO Q7D 11/07/20 11/09/20 Mcg = 48782 Iu)] Sertraline [Zoloft] 25 mg PO HS 11/09/20 11/09/20 Previous Rx's Medication Instructions Recorded Omeprazole [PriLOSEC] 40 mg PO RENETTA-AYOKFSRobert #14 capsule. 11/09/20 clindamycin HCL [Clindamycin HCl] 300 mg PO Q6HR #40 cap 12/20/20 Ibuprofen [Motrin] 600 mg PO Q8HR PRN #20 tab 12/30/20 clindamycin HCL [Clindamycin HCl] 300 mg PO Q6HR #40 cap 12/30/20 Ibuprofen [Motrin] 600 mg PO Q6HR PRN #20 tab 03/19/21 LORazepam [Ativan] 1 mg PO DAILY PRN 3 Days #3 tab 07/21/21 LORazepam [Ativan] 0.5 mg PO HS 3 Days #3 tab 09/29/21 Penicillin V Potassium [Pen Vee K] 500 mg PO QID #40 tablet 10/11/21 clonazePAM [Klonopin ODT] 0.25 mg PO BID #4 tab 06/07/22 clonazePAM [Klonopin ODT] 0.25 mg PO DAILY 3 Days #3 tab 06/15/22 Allergies Allergy/AdvReac Type Severity Reaction Status Date / Time No Known Allergies Allergy Verified 06/07/22 10:13 Review of Systems ROS Statement: Those systems with pertinent positive or pertinent negative responses have been documented in the HPI. Review of Systems: CONST: Denies fever EYES: Denies blurry vision ENT: Denies nasal congestion C/V: Denies Chest pain RESP: Denies shortness of breath GI: Denies abdominal pain : Denies dysuria SKIN: Denies rash. MSK: Denies joint pain. NEURO: Denies headache PSYCH: Denies suicidal and homicidal ideations/plans/attempts. Denies visual or auditory hallucinations. ROS Other: All systems not noted in ROS Statement are negative. Past Medical History Past Medical History: Seizure Disorder History of Any Multi-Drug Resistant Organisms: None Reported Past Surgical History: No Surgical Hx Reported Additional Past Surgical History / Comment(s): small cysts, externally in her groin area. Past Anesthesia/Blood Transfusion Reactions: No Reported Reaction Past Psychological History: ADD/ADHD, Anxiety, Bipolar, Depression, PTSD Smoking Status: Current every day smoker Past Alcohol Use History: None Reported Past Drug Use History: Marijuana - Past Family History Mother Additional Family Medical History / Comment(s): Mother is alive at age 53 with back and knee surgery, ovarian cysts. Father History Unknown: Yes Additional Family Medical History / Comment(s): Father is alive at age 53 with active history of heroin use Sister(s) Additional Family Medical History / Comment(s): She has 3 sisters and one half- sister with no major medical problems. Patient does not have any brothers. Patient does not have any children. General Exam - General Exam Comments Initial Comments: General: Appears in no acute distress. HEAD: Normal with no signs of head trauma. EYES: EOMI ENT: Hearing grossly intact, normal oropharynx. RESPIRATORY: Clear breath sounds bilaterally. No wheezes, rales, or rhonchi. C/V: Regular rate and rhythm. S1 and S2 auscultated. Peripheral pulses 2+ intact throughout. ABD: Abd is soft, nontender, nondistended EXT: Normal range of motion, no obvious deformity SKIN: No rashes or lesions observed on exposed skin. NEURO: Alert and oriented 4. Limitations: no limitations Course Vital Signs 06/15/22 06/15/22 12:45 15:09 Temperature 98.6 F 98.0 F Pulse Rate 71 75 Respiratory 18 18 Rate Blood Pressure 125/84 120/60 O2 Sat by Pulse 97 98 Oximetry Medical Decision Making - Medical Decision Making Based on patient's presentation and physical exam, does appear she is presenting for medication refill. His a history of anxiety. I will provide her with a short-term prescription of 3 days of her medication. We did discuss that she needs to obtain a longer term prescription from her PCP. She was in agreement with this plan. His no other acute complaints at this time. She'll be discharged home at this time. Vital signs within except limits. I instructed the patient to follow up with their PCP in the next 1-3 days. I explained that the patient should return to the emergency department if they ex perience any worsening symptoms. Strict return precautions were discussed with the patient. The patient expressed understanding of these instructions. I answered all questions that the patient had. The patient was discharged home in good condition with their prescriptions and follow up information. Disposition Clinical Impression: Acute anxiety Disposition: HOME SELF-CARE Condition: Good Instructions (If sedation given, give patient instructions): Generalized Anxie ty Disorder (ED) Prescriptions: clonazePAM [Klonopin ODT] 0.25 mg PO DAILY 3 Days #3 tab Is patient prescribed a controlled substance at d/c from ED?: Yes Referrals: Cate Tucker MD [Primary Care Provider] - 1-2 days Time of Disposition: 14:50
[2022-06-15 15:09] VITALS: BP 120/60; PULSE 75; TEMP 98
== END 2022-06-15 15:09 | disposition home or self-care (01) ==
LOC: EC 12:03
DX: F41.9 Anxiety disorder, unspecified (principal); F31.9 Bipolar disorder, unspecified; F12.90 Cannabis use, unspecified, uncomplicated; F17.200 Nicotine dependence, unspecified, uncomplicated
CPT/HCPCS: 99283

== ENCOUNTER 2022-06-29 18:42 | Emergency (ER) | payer OTHER ==
[2022-06-29 19:23] VITALS: RESP 16; TEMP 97
[2022-06-29] MEDS ORDERED: clonazePAM 0.5 MG TAB PO STA (19:46)
--- NOTE | 2022-06-29 20:58 | ED ---
Anxiety HPI - General Chief Complaint: Anxiety Stated Complaint: Anxiety Time Seen by Provider: 06/29/22 19:26 Source: patient Mode of arrival: ambulatory - History of Present Illness Initial Comments: Patient is a 27-year-old female presenting with chief complaint of anxiety. Patient states this recent episode has been ongoing since yesterday. Patient denies any suicidal or homicidal thoughts. Patient states that she was taken off of her Klonopin, and since then she has been having a difficult time managing her anxiety. Patient does see a therapist and has a support system at home. She denies any other symptoms at this time. Patient states that she is scheduling an appointment with her PCP. - Related Data Home Medications: Home Medications Medication Instructions Recorded Confirmed Benztropine Mesylate [Cogentin] 0.5 mg PO BID 03/10/20 11/09/20 OLANZapine [ZyPREXA Zydis] 10 mg PO BID 03/10/20 11/09/20 Atorvastatin [Lipitor] 20 mg PO HS 11/07/20 11/09/20 Ergocalciferol [Vitamin D2 (1250 1,250 mcg PO Q7D 11/07/20 11/09/20 Mcg = 74456 Iu)] Sertraline [Zoloft] 25 mg PO HS 11/09/20 11/09/20 Previous Rx's Medication Instructions Recorded Omeprazole [PriLOSEC] 40 mg PO AC-BRKFST #14 capsule. 11/09/20 clindamycin HCL [Clindamycin HCl] 300 mg PO Q6HR #40 cap 12/20/20 Ibuprofen [Motrin] 600 mg PO Q8HR PRN #20 tab 12/30/20 clindamycin HCL [Clindamycin HCl] 300 mg PO Q6HR #40 cap 12/30/20 Ibuprofen [Motrin] 600 mg PO Q6HR PRN #20 tab 03/19/21 LORazepam [Ativan] 1 mg PO DAILY PRN 3 Days #3 tab 07/21/21 LORazepam [Ativan] 0.5 mg PO HS 3 Days #3 tab 09/29/21 Penicillin V Potassium [Pen Vee K] 500 mg PO QID #40 tablet 10/11/21 clonazePAM [Klonopin ODT] 0.25 mg PO BID #4 tab 06/07/22 clonazePAM [Klonopin ODT] 0.25 mg PO DAILY 3 Days #3 tab 06/15/22 clonazePAM [Klonopin ODT] 0.25 mg PO DAILY PRN #3 tab 06/29/22 Allergies/Adverse Reactions: Allergies Allergy/AdvReac Type Severity Reaction Status Date / Time No Known Allergies Allergy Verified 06/07/22 10:13 Review of Systems ROS Statement: Those systems with pertinent positive or pertinent negative responses have been documented in the HPI. ROS Other: All systems not noted in ROS Statement are negative. Past Medical History Past Medical History: Seizure Disorder History of Any Multi-Drug Resistant Organisms: None Reported Past Surgical History: No Surgical Hx Reported Additional Past Surgical History / Comment(s): small cysts, externally in her groin area. Past Anesthesia/Blood Transfusion Reactions: No Reported Reaction Past Psychological History: ADD/ADHD, Anxiety, Bipolar, Depression, PTSD Smoking Status: Current every day smoker Past Alcohol Use History: None Reported Past Drug Use History: Marijuana - Past Family History Mother Additional Family Medical History / Comment(s): Mother is alive at age 53 with back and knee surgery, ovarian cysts. Father History Unknown: Yes Additional Family Medical History / Comment(s): Father is alive at age 53 with active history of heroin use Sister(s) Additional Family Medical History / Comment(s): She has 3 sisters and one half- sister with no major medical problems. Patient does not have any brothers. Patient does not have any children. General Exam Limitations: no limitations General appearance: alert, in no apparent distress Head exam: Present: atraumatic, normocephalic, normal inspection Eye exam: Present: normal appearance Neck exam: Present: normal inspection Respiratory exam: Present: normal lung sounds bilaterally. Absent: respiratory distress, wheezes, rales, rhonchi, stridor Cardiovascular Exam: Present: regular rate, normal rhythm, normal heart sounds. Absent: systolic murmur, diastolic murmur, rubs, gallop, clicks Neurological exam: Present: alert, oriented X3, CN II-XII intact Psychiatric exam: Present: anxious Skin exam: Present: warm, dry, intact, normal color. Absent: rash Course Vital Signs 06/29/22 19:20 Temperature 97 F L Pulse Rate 86 Respiratory 16 Rate Blood Pressure 106/71 O2 Sat by Pulse 98 Oximetry Medical Decision Making - Medical Decision Making Was pt. sent in by a medical professional or institution (HUMBERTO Simmons, AUTOMATIC RIVETING MACHINE OPERATOR, urgent care, hospital, or fdc...) When possible be specific @ -[No] Did you speak to anyone other than the patient for history (EMS, parent, family, police, friend...)? What history was obtained from this source @ -[No] Did you review nursing and triage notes (agree or disagree)? Why? @ -[I reviewed and agree with nursing and triage notes] Were old charts reviewed (outside hosp., previous admission, EMS record, old EKG, old radiological studies, urgent care reports/EKG's, fdc records)? Report findings @ -Reviewed records from 2 previous ER visits for anxiety Differential Diagnosis (chest pain, altered mental status, abdominal pain women, abdominal pain men, vaginal bleeding, weakness, fever, dyspnea, syncope, headache, dizziness, GI bleed, back pain, seizure, CVA, palpatations, mental health)? @ Differential includes anxiety, depression EKG interpreted by me (3pts min.). @ -[As above] X-rays interpreted by me (1pt min.). @ -[None done] CT interpreted by me (1pt min.). @ -[None done] U/S interpreted by me (1pt. min.). @ -[None done] What testing was considered but not performed or refused? (CT, X-rays, U/S, labs)? Why? @ -[None] What meds were considered but not given or refused? Why? @ -[None] Did you discuss the management of the patient with other professionals (professionals i.e. HUMBERTO Simmons, AUTOMATIC RIVETING MACHINE OPERATOR, lab, RT, psych nurse, social studies department chair, supervisor telephone answering service, teacher, supervisor dog license officer, therapeutic case manager)? Give summary @ -[No] Was smoking cessation discussed for >3mins.? @ -[No] Was critical care preformed (if so, how long)? @ -[No] Were there social determinants of health that impacted care today? How? (Homelessness, low income, unemployed, alcoholism, drug addiction, transportation, low edu. Level, literacy, decrease access to med. care, [facility], rehab)? @ -[No] Was there de-escalation of care discussed even if they declined (Discuss DNR or withdrawal of care, Hospice)? DNR status @ -[No] What co-morbidities impacted this encounter? (DM, HTN, Smoking, COPD, CAD, Cancer, CVA, ARF, Chemo, Hep., AIDS, mental health diagnosis, sleep apnea, morbid obesity)? @ -[None] Was patient admitted / discharged? Hospital course, mention meds given and route, prescriptions, significant lab abnormalities, going to OR and other pertinent info. @ -Patient is a 27-year-old female presenting for evaluation of anxiety. Patient states that for the last 2 days she has been having increased anxiety. She has been having a difficult time managing this since been taken off of Klonopin about a month ago. Physical examination is unremarkable. Patient is given one dose of Klonopin here in the ER, on reassessment she reports improvement in her symptoms. Patient will be prescribed a short course of Klonopin for home and instructed to follow-up with her PCP. Patient confirms that she has an upcoming appointment scheduled. She continues to deny any suicidal or homicidal ideation. Follow-up with PCP. Report back to ER with any new or worsening symptoms. Discussed return parameters and answered all questions. Patient conveyed verbal understanding and agreed to the plan. I discussed this case in detail with my attending Dr. Garza Undiagnosed new problem with uncertain prognosis? @ -[No] Drug Therapy requiring intensive monitoring for toxicity (Heparin, Nitro, Insulin, Cardizem)? @ -[No] Were any procedures done? @ -[No] Diagnosis/symptom? @ -Anxiety Acute, or Chronic, or Acute on Chronic? @ -Acute on chronic Uncomplicated (without systemic symptoms) or Complicated (systemic symptoms)? @ -Uncomplicated Side effects of treatment? @ -[No] Exacerbation, Progression, or Severe Exacerbation? @ -[No] Poses a threat to life or bodily function? How? (Chest pain, [place], [place], pneumonia, PE, COPD, DKA, ARF, appy, cholecystitis, CVA, Diverticulitis, Homicidal, Suicidal, threat to staff... and all critical care pts) @ -[No] Disposition Clinical Impression: Acute anxiety Disposition: HOME SELF-CARE Condition: Good Instructions (If sedation given, give patient instructions): Generalized Anxiety Disorder (ED) Additional Instructions: Follow-up with PCP. Report back to ER with any new or worsening symptoms. Take medication as prescribed. Prescriptions: clonazePAM [Klonopin ODT] 0.25 mg PO DAILY PRN #3 tab PRN Reason: Anxiety Is patient prescribed a controlled substance at d/c from ED?: Yes When asked, does pt state using other controlled substances?: No If prescribed controlled substance>3 days was MAPS reviewed?: Prescribed <3 Days Referrals: Cate Tucker MD [Primary Care Provider] - 1-2 days Time of Disposition: 21:04
[2022-06-29 21:33] VITALS: BP 124/85; PULSE 78
== END 2022-06-29 21:32 | disposition home or self-care (01) ==
LOC: EC 18:42
DX: F41.9 Anxiety disorder, unspecified (principal); F90.9 Attention-deficit hyperactivity disorder, unspecified type; F31.9 Bipolar disorder, unspecified; F12.90 Cannabis use, unspecified, uncomplicated; F17.200 Nicotine dependence, unspecified, uncomplicated
CPT/HCPCS: 99284

== ENCOUNTER 2022-07-03 16:59 | Emergency (ER) | payer OTHER ==
[2022-07-03 17:08] VITALS: BP 135/88; PULSE 97; RESP 18; TEMP 98.3
--- NOTE | 2022-07-03 17:32 | ED ---
General Adult HPI - General Chief complaint: Anxiety Stated complaint: Anxiety Time Seen by Provider: 07/03/22 17:11 Source: patient Mode of arrival: ambulatory Limitations: no limitations - History of Present Illness Initial comments: Dictation was produced using [employer] dictation software. please excuse any grammatical, word or spelling errors. Chief Complaint: 27-year-old feel presents emergency Department with anxiety History of Present Illness: Patient's 27-year-old female presents emergency department with anxiety. Patient states that she's been suffering from anxiety for several years. She takes Klonopin 0.25 daily. She stopped taking her medications after psychiatrist at that medication. States that her last dose w as yesterday. States that she struggling with life in general. The ROS documented in this emergency department record has been reviewed and confirmed by me. Those systems with pertinent positive or negative responses have been documented in the HPI. All other systems are other negative and/or noncontributory. PHYSICAL EXAM: General Impression: Alert and oriented x3, not in acute distress HEENT: Normocephalic atraumatic, extra-ocular movements intact, pupils equal and reactive to light bilaterally, mucous membranes moist. Cardiovascular: Heart regular rate and rhythm Chest: Able to complete full sentences, no retractions, no tachypnea Abdomen: abdomen soft, non-tender, non-distended, no organomegaly Musculoskeletal: Pulses present and equal in all extremities, no peripheral edema Motor: no focal deficits noted Neurological: CN II-XII grossly intact, no focal motor or sensory deficits noted Skin: Intact with no visualized rashes Psych: Normal affect and mood ED course: 27-year-old female presents emergency department for anxiety reaction. Vital signs upon arrival are within acceptable limits. Physical examination is benign. She states she has an appointment with her primary care doctor in one week. Patient given 2 day supply of Klonopin. Patient discharged Nursing notes and chart review was performed Was pt. sent in by a medical professional or institution (, PA, OFFICE ASSISTANT, urgent care, hospital, or halfway...) When possible be specific @ -No Did you speak to anyone other than the patient for history (EMS, parent, family, police, friend...)? What history was obtained from this source @ -No Did you review nursing and triage notes (agree or disagree)? Why? @ -I reviewed and agree with nursing and triage notes Were old charts reviewed (outside hosp., previous admission, EMS record, old EKG, old radiological studies, urgent care reports/EKG's, halfway records)? Report findings @ -No old charts were reviewed Differential Diagnosis (chest pain, altered mental status, abdominal pain women, abdominal pain men, vaginal bleeding, weakness, fever, dyspnea, syncope, headache, dizziness, GI bleed, back pain, seizure, CVA, palpatations, mental health)? @ -not applicable EKG interpreted by me (3pts min.). @ -None done X-rays interpreted by me (1pt min.). @ -None done CT interpreted by me (1pt min.). @ -None done U/S interpreted by me (1pt. min.). @ -None done What testing was considered but not performed or refused? (CT, X-rays, U/S, labs)? Why? @ -None What meds were considered but not given or refused? Why? @ -None Did you discuss the management of the patient with other professionals (professionals i.e. , PA, OFFICE ASSISTANT, lab, RT, psych nurse, social service liaison, manager call center, teacher, chief nursing officer, shoe caser)? Give summary @ -No Was smoking cessation discussed for >3mins.? @ -No Was critical care preformed (if so, how long)? @ -No Were there social determinants of health that impacted care today? How? (Homelessness, low income, unemployed, alcoholism, drug addiction, transportation, low edu. Level, literacy, decrease access to med. care, detention, rehab)? @ -No Was there de-escalation of care discussed even if they declined (Discuss DNR or withdrawal of care, Hospice)? DNR status @ -No What co-morbidities impacted this encounter? (DM, HTN, Smoking, COPD, CAD, Cancer, CVA, ARF, Chemo, Hep., AIDS, mental health diagnosis, sleep apnea, morbid obesity)? @ -None Was patient admitted / discharged? Hospital course, mention meds given and route, prescriptions, significant lab abnormalities, going to OR and other pertinent info. @ -See above Undiagnosed new problem with uncertain prognosis? @ -No Drug Therapy requiring intensive monitoring for toxicity (Heparin, Nitro, Insulin, Cardizem)? @ -No Were any procedures done? @ -No Diagnosis/symptom? @ -Anxiety Acute, or Chronic, or Acute on Chronic? @ -Acute on chronic Uncomplicated (without systemic symptoms) or Complicated (systemic symptoms)? @ -default Side effects of treatment? @ -No Exacerbation, Progression, or Severe Exacerbation? @ -No Poses a threat to life or bodily function? How? (Chest pain, [place], [place], pneumonia, PE, COPD, DKA, ARF, appy, cholecystitis, CVA, Diverticulitis, Homicidal, Suicidal, threat to staff... and all critical care pts) @ -No - Related Data Home Medications Medication Instructions Recorded Confirmed Benztropine Mesylate [Cogentin] 0.5 mg PO BID 03/10/20 11/09/20 OLANZapine [ZyPREXA Zydis] 10 mg PO BID 03/10/20 11/09/20 Atorvastatin [Lipitor] 20 mg PO HS 11/07/20 11/09/20 Ergocalciferol [Vitamin D2 (1250 1,250 mcg PO Q7D 11/07/20 11/09/20 Mcg = 90501 Iu)] Sertraline [Zoloft] 25 mg PO HS 11/09/20 11/09/20 Previous Rx's Medication Instructions Recorded Omeprazole [PriLOSEC] 40 mg PO AC-JOSE AFSRobert #14 capsule. 11/09/20 clindamycin HCL [Clindamycin HCl] 300 mg PO Q6HR #40 cap 12/20/20 Ibuprofen [Motrin] 600 mg PO Q8HR PRN #20 tab 12/30/20 clindamycin HCL [Clindamycin HCl] 300 mg PO Q6HR #40 cap 12/30/20 Ibuprofen [Motrin] 600 mg PO Q6HR PRN #20 tab 03/19/21 LORazepam [Ativan] 1 mg PO DAILY PRN 3 Days #3 tab 07/21/21 LORazepam [Ativan] 0.5 mg PO HS 3 Days #3 tab 09/29/21 Penicillin V Potassium [Pen Vee K] 500 mg PO QID #40 tablet 10/11/21 clonazePAM [Klonopin ODT] 0.25 mg PO BID #4 tab 06/07/22 clonazePAM [Klonopin ODT] 0.25 mg PO DAILY 3 Days #3 tab 06/15/22 clonazePAM [Klonopin ODT] 0.25 mg PO DAILY PRN #3 tab 06/29/22 clonazePAM [Klonopin ODT] 0.25 mg PO DAILY PRN #2 tab 07/03/22 Allergies Allergy/AdvReac Type Severity Reaction Status Date / Time No Known Allergies Allergy Verified 07/03/22 17:08 Review of Systems ROS Statement: Those systems with pertinent positive or pertinent negative responses have been documented in the HPI. ROS Other: All systems not noted in ROS Statement are negative. Past Medical History Past Medical History: Seizure Disorder History of Any Multi-Drug Resistant Organisms: None Reported Past Surgical History: No Surgical Hx Reported Additional Past Surgical History / Comment(s): small cysts, externally in her groin area. Past Anesthesia/Blood Transfusion Reactions: No Reported Reaction Past Psychological History: ADD/ADHD, Anxiety, Bipolar, Depression, PTSD Smoking Status: Current every day smoker Past Alcohol Use History: None Reported Past Drug Use History: Marijuana - Past Family History Mother Additional Family Medical History / Comment(s): Mother is alive at age 53 with back and knee surgery, ovarian cysts. Father History Unknown: Yes Additional Family Medical History / Comment(s): Father is alive at age 53 with active history of heroin use Sister(s) Additional Family Medical History / Comment(s): She has 3 sisters and one half- sister with no major medical problems. Patient does not have any brothers. Patient does not have any children. General Exam Limitations: no limitations Course Vital Signs 07/03/22 17:06 Temperature 98.3 F Pulse Rate 97 Respiratory 18 Rate Blood Pressure 135/88 O2 Sat by Pulse 99 Oximetry Disposition Clinical Impression: Anxiety Disposition: HOME SELF-CARE Condition: Fair Instructions (If sedation given, give patient instructions): Generalized Anxiety Disorder (ED) Prescriptions: clonazePAM [Klonopin ODT] 0.25 mg PO DAILY PRN #2 tab PRN Reason: Anxiety Is patient prescribed a controlled substance at d/c from ED?: Yes If prescribed controlled substance>3 days was MAPS reviewed?: Prescribed <3 Days Referrals: Cate Tucker MD [Primary Care Provider] - 1-2 days Time of Disposition: 17:42
== END 2022-07-03 18:07 | disposition home or self-care (01) ==
LOC: EC 16:59
DX: F41.9 Anxiety disorder, unspecified (principal); F90.9 Attention-deficit hyperactivity disorder, unspecified type; F31.9 Bipolar disorder, unspecified; F17.200 Nicotine dependence, unspecified, uncomplicated; F12.90 Cannabis use, unspecified, uncomplicated
CPT/HCPCS: 99283

== ENCOUNTER 2022-09-29 09:47 | Emergency (ER) | payer OTHER ==
[~2022-09-29 09:47] MED LIST: OLANZapine 7.5 MG TAB PO ONE
[2022-09-29 09:55] VITALS: TEMP 98
[2022-09-29] MEDS ORDERED: SERTRALINE 50 MG TAB PO ONE (10:06)
--- NOTE | 2022-09-29 10:14 | ED ---
Anxiety HPI - General Chief Complaint: Anxiety Stated Complaint: Anxiety Time Seen by Provider: 09/29/22 09:59 Source: patient, RN notes reviewed Mode of arrival: ambulatory Limitations: no limitations - History of Present Illness Initial Comments: This is a 27-year-old female who presents to the emergency department for anxiety. Patient is currently being treated with Zoloft and Zyprexa, and states that she has been out of her medication for 7 days. She had previously been taking Klonopin, which she has been able to wean off of, and states that the new medications are working great for her. She was told that she is getting a new provider at [facility], and is unsure when they can get her in for an appointment. Since being out of these medications, states that she's been really struggling emotionally. She requests a short-term refill on these medications to get her through until she can see [facility]. Denies any suicidal or homicidal ideations. Als o denies any auditory or visual hallucinations. Otherwise denies any concerns or complaints. Denies any fevers, chills, sore throat, cough, dyspnea, chest pain, palpitations, abdominal pain, nausea, vomiting, diarrhea, back pain, or headaches. MD Complaint: anxiety Previous History of Same: Yes - Related Data Home Medications: Home Medications Medication Instructions Recorded Confirmed Benztropine Mesylate [Cogentin] 0.5 mg PO BID 03/10/20 11/09/20 OLANZapine [ZyPREXA Zydis] 10 mg PO BID 03/10/20 11/09/20 Atorvastatin [Lipitor] 20 mg PO HS 11/07/20 11/09/20 Ergocalciferol [Vitamin D2 (1250 1,250 mcg PO Q7D 11/07/20 11/09/20 Mcg = 78731 Iu)] Sertraline [Zoloft] 25 mg PO HS 11/09/20 11/09/20 Previous Rx's Medication Instructions Recorded Omeprazole [PriLOSEC] 40 mg PO AC-BRKFST #14 capsule. 11/09/20 clindamycin HCL [Clindamycin HCl] 300 mg PO Q6HR #40 cap 12/20/20 Ibuprofen [Motrin] 600 mg PO Q8HR PRN #20 tab 12/30/20 clindamycin HCL [Clindamycin HCl] 300 mg PO Q6HR #40 cap 12/30/20 Ibuprofen [Motrin] 600 mg PO Q6HR PRN #20 tab 03/19/21 LORazepam [Ativan] 1 mg PO DAILY PRN 3 Days #3 tab 07/21/21 LORazepam [Ativan] 0.5 mg PO HS 3 Days #3 tab 09/29/21 Penicillin V Potassium [Pen Vee K] 500 mg PO QID #40 tablet 10/11/21 clonazePAM [Klonopin ODT] 0.25 mg PO BID #4 tab 06/07/22 clonazePAM [Klonopin ODT] 0.25 mg PO DAILY 3 Days #3 tab 06/15/22 clonazePAM [Klonopin ODT] 0.25 mg PO DAILY PRN #3 tab 06/29/22 clonazePAM [Klonopin ODT] 0.25 mg PO DAILY PRN #2 tab 07/03/22 OLANZapine ODT [ZyPREXA Zydis] 10 mg PO BID #60 tablet 09/29/22 Sertraline [Zoloft] 25 mg PO DAILY #30 tablet 09/29/22 Allergies/Adverse Reactions: Allergies Allergy/AdvReac Type Severity Reaction Status Date / Time No Known Allergies Allergy Verified 09/29/22 09:55 Review of Systems ROS Statement: Those systems with pertinent positive or pertinent negative responses have been documented in the HPI. ROS Other: All systems not noted in ROS Statement are negative. Past Medical History Past Medical History: Seizure Disorder History of Any Multi-Drug Resistant Organisms: None Reported Past Surgical History: No Surgical Hx Reported Additional Past Surgical History / Comment(s): small cysts, externally in her groin area. Past Anesthesia/Blood Transfusion Reactions: No Reported Reaction Past Psychological History: ADD/ADHD, Anxiety, Bipolar, Depression, PTSD Smoking Status: Current every day smoker Past Alcohol Use History: None Reported Past Drug Use History: Marijuana - Past Family History Mother Additional Family Medical History / Comment(s): Mother is alive at age 53 with back and knee surgery, ovarian cysts. Father History Unknown: Yes Additional Family Medical History / Comment(s): Father is alive at age 53 with active history of heroin use Sister(s) Additional Family Medical History / Comment(s): She has 3 sisters and one half- sister with no major medical problems. Patient does not have any brothers. Patient does not have any children. General Exam Limitations: no limitations General appearance: alert, anxious Head exam: Present: atraumatic, normocephalic, normal inspection Respiratory exam: Present: normal lung sounds bilaterally. Absent: respiratory distress, wheezes, rales, rhonchi, stridor Cardiovascular Exam: Present: regular rate, normal rhythm, normal heart sounds. Absent: systolic murmur, diastolic murmur, rubs, gallop, clicks Neurological exam: Present: alert, oriented X3, CN II-XII intact Psychiatric exam: Present: anxious, flat affect Skin exam: Present: warm, dry, intact, normal color. Absent: rash Course Vital Signs 09/29/22 09/29/22 09:53 11:07 Temperature 98 F Pulse Rate 86 84 Respiratory 20 18 Rate Blood Pressure 119/83 122/74 O2 Sat by Pulse 99 96 Oximetry Medical Decision Making - Medical Decision Making This is a 27-year-old female who presents to the emergency department for anxiety. Was pt. sent in by a medical professional or institution? @ -No Did you speak to anyone other than the patient for history? @ -No Did you review nursing and triage notes? @ -Yes, and I agree, it is accurate with regards to the patient's symptoms. Were old charts reviewed? @ -No Differential Diagnosis? @ -Not applicable What testing was considered but not performed? (CT, X-rays, U/S, labs)? Why? @ -None What meds were considered but not given? Why? @ -None Did you discuss the management of the patient with other professionals? @ -No Did you reconcile home meds? @ -No Was smoking cessation discussed for >3mins.? @ -No Was critical care preformed (if so, how long)? @ -No Were there social determinants of health that impacted care today? How? (Homelessness, low income, unemployed, alcoholism, drug addiction, transportation, low edu. Level, literacy, decrease access to med. care, senior living, r ehab)? @ -No Was there de-escalation of care discussed even if they declined? (Discuss DNR or withdrawal of care, Hospice)? @ -No What co-morbidities impacted this encounter? (DM, HTN, Smoking, COPD, CAD, Cancer, CVA, Hep., AIDS, mental health diagnosis, sleep apnea, morbid obesity)? @ -Anxiety Was patient admitted / discharged? @ -Discharged. Refills on Zoloft and Zyprexa provided. Initial doses were administered in the emergency department. Patient is instructed to follow up with [facility] and make sure that she gets an appointment scheduled for ongoing medication management. Undiagnosed new problem with uncertain prognosis? @ -None Drug Therapy requiring intensive monitoring for toxicity (Heparin, Nitro, Insulin, Cardizem)? @ -None Were any procedures done? @ -None Diagnosis/symptom? @ -Generalized anxiety disorder Acute, or Chronic, or Acute on Chronic? @ -Chronic Uncomplicated (without systemic symptoms) or Complicated (systemic symptoms)? @ -Uncomplicated Side effects of treatment? @ -None Exacerbation, Progression, or Severe Exacerbation] @ -Stable Poses a threat to life or bodily function? @ -No Return precautions reviewed in depth, the patient is instructed to return to the emergency department with any new, worsening, or concerning symptoms. Patient verbalized understanding. This case was discussed in detail with the attending ED physician, Dr. Bauman. Presentation, findings, and treatment plan discussed in detail as well. Disposition Clinical Impression: ANSON (generalized anxiety disorder) Disposition: HOME SELF-CARE Instructions (If sedation given, give patient instructions): Generalized Anxiety Disorder (ED) Additional Instructions: Return to the emergency department with any new, worsening, or concerning symptoms. Take the Zoloft and Zyprexa as prescribed. Follow up with [facility] as soon as possible for ongoing management of your anxiety. Prescriptions: Sertraline [Zoloft] 25 mg PO DAILY #30 tablet OLANZapine ODT [ZyPREXA Zydis] 10 mg PO BID #60 tablet Is patient prescribed a controlled substance at d/c from ED?: No Referrals: Cate Tucker MD [Primary Care Provider] - 1-2 days
[2022-09-29] MEDS ORDERED: OLANZapine ODT 10 MG TAB PO ONE (10:23)
[2022-09-29 11:15] VITALS: BP 122/74; PULSE 84; RESP 18
== END 2022-09-29 11:15 | disposition home or self-care (01) ==
LOC: EC 09:47
DX: F41.1 Generalized anxiety disorder (principal); F31.9 Bipolar disorder, unspecified; F17.200 Nicotine dependence, unspecified, uncomplicated; F12.90 Cannabis use, unspecified, uncomplicated; Z79.899 Other long term (current) drug therapy
CPT/HCPCS: 99283

== ENCOUNTER 2022-11-19 10:41 | Emergency (ER) | payer OTHER ==
[2022-11-19 11:13] VITALS: BP 130/85; PULSE 75; RESP 20; TEMP 98.3
[2022-11-19] MEDS ORDERED: LORazepam 0.5 MG TAB PO STA (12:29)
--- NOTE | 2022-11-19 12:46 | ED ---
General Adult HPI - General Chief complaint: Anxiety Stated complaint: anxiety Time Seen by Provider: 11/19/22 12:30 Source: patient, RN notes reviewed, old records reviewed Mode of arrival: ambulatory Limitations: no limitations - History of Present Illness Initial comments: Patient is a 27-year-old female with past medical history remarkable for anxie ty, seizure disorder presents emergency department seeking relief for anxiety. Has been having for the last 10 days. And out of her normal antipsychotic medication for anxiety but just had a refill. Has been on it again last 2 days. States it hasn't fully kicked in yet and she still feeling anxious. Denies any thoughts of wanting to hurt herself or others. Denies any hallucinations. Denies any chest pain, abdominal pain, nausea, vomiting. Denies any shortness of breath. His no other acute complaints. She is well-known to this department. Is requesting a small dose of Ativan and discharge. No other acute complaints at this time. - Related Data Home Medications Medication Instructions Recorded Confirmed Benztropine Mesylate [Cogentin] 0.5 mg PO BID 03/10/20 11/09/20 OLANZapine [ZyPREXA Zydis] 10 mg PO BID 03/10/20 11/09/20 Atorvastatin [Lipitor] 20 mg PO HS 11/07/20 11/09/20 Ergocalciferol [Vitamin D2 (1250 1,250 mcg PO Q7D 11/07/20 11/09/20 Mcg = 98905 Iu)] Sertraline [Zoloft] 25 mg PO HS 11/09/20 11/09/20 Previous Rx's Medication Instructions Recorded Omeprazole [PriLOSEC] 40 mg PO AC-BRKFST #14 capsule. 11/09/20 clindamycin HCL [Clindamycin HCl] 300 mg PO Q6HR #40 cap 12/20/20 Ibuprofen [Motrin] 600 mg PO Q8HR PRN #20 tab 12/30/20 clindamycin HCL [Clindamycin HCl] 300 mg PO Q6HR #40 cap 12/30/20 Ibuprofen [Motrin] 600 mg PO Q6HR PRN #20 tab 03/19/21 LORazepam [Ativan] 1 mg PO DAILY PRN 3 Days #3 tab 07/21/21 LORazepam [Ativan] 0.5 mg PO HS 3 Days #3 tab 09/29/21 Penicillin V Potassium [Pen Vee K] 500 mg PO QID #40 tablet 10/11/21 clonazePAM [Klonopin ODT] 0.25 mg PO BID #4 tab 06/07/22 clonazePAM [Klonopin ODT] 0.25 mg PO DAILY 3 Days #3 tab 06/15/22 clonazePAM [Klonopin ODT] 0.25 mg PO DAILY PRN #3 tab 06/29/22 clonazePAM [Klonopin ODT] 0.25 mg PO DAILY PRN #2 tab 07/03/22 OLANZapine ODT [ZyPREXA Zydis] 10 mg PO BID #60 tablet 09/29/22 Sertraline [Zoloft] 25 mg PO DAILY #30 tablet 09/29/22 Allergies Allergy/AdvReac Type Severity Reaction Status Date / Time No Known Allergies Allergy Verified 11/19/22 11:13 Review of Systems ROS Statement: Those systems with pertinent positive or pertinent negative responses have been documented in the HPI. Review of Systems: CONST: Denies fever EYES: Denies blurry vision ENT: Denies nasal congestion C/V: Denies Chest pain RESP: Denies shortness of breath GI: Denies abdominal pain : Denies dysuria SKIN: Denies rash. MSK: Denies joint pain. NEURO: Denies headache PSYCH: Denies suicidal and homicidal ideations/plans/attempts. Denies visual or auditory hallucinations. She endorses anxiety ROS Other: All systems not noted in ROS Statement are negative. Past Medical History Past Medical History: Seizure Disorder History of Any Multi-Drug Resistant Organisms: None Reported Past Surgical History: No Surgical Hx Reported Additional Past Surgical History / Comment(s): small cysts, externally in her groin area. Past Anesthesia/Blood Transfusion Reactions: No Reported Reaction Past Psychological History: ADD/ADHD, Anxiety, Bipolar, Depression, PTSD Smoking Status: Current every day smoker Past Alcohol Use History: None Reported Past Drug Use History: Marijuana - Past Family History Mother Additional Family Medical History / Comment(s): Mother is alive at age 53 with back and knee surgery, ovarian cysts. Father History Unknown: Yes Additional Family Medical History / Comment(s): Father is alive at age 53 with active history of heroin use Sister(s) Additional Family Medical History / Comment(s): She has 3 sisters and one half- sister with no major medical problems. Patient does not have any brothers. Patient does not have any children. General Exam - General Exam Comments Initial Comments: General: Appears in no acute distress. HEAD: Normal with no signs of head trauma. EYES: EOMI. ENT: Hearing grossly intact. RESPIRATORY: No respiratory distress.Clear breath sounds bilaterally. C/V: Regular rate and rhythm. ABD: Abdomen is nondistended. EXT: No obvious deformity. SKIN: No rashes or lesions observed on exposed skin. NEURO: Alert and oriented. Limitations: no limitations Course Vital Signs 11/19/22 11:09 Temperature 98.3 F Pulse Rate 75 Respiratory 20 Rate Blood Pressure 130/85 O2 Sat by Pulse 96 Oximetry Medical Decision Making - Medical Decision Making Was pt. sent in by a medical professional or institution (, PA, FLASK FITTER, urgent care, hospital, or retirement...) When possible be specific @ -No Did you speak to anyone other than the patient for history (EMS, parent, family, police, friend...)? What history was obtained from this source @ -No Did you review nursing and triage notes (agree or disagree)? Why? @ -I reviewed and agree with nursing and triage notes Were old charts reviewed (outside hosp., previous admission, EMS record, old EKG, old radiological studies, urgent care reports/EKG's, retirement records)? Report findings @ -No old charts were reviewed Differential Diagnosis (chest pain, altered mental status, abdominal pain women, abdominal pain men, vaginal bleeding, weakness, fever, dyspnea, syncope, headache, dizziness, GI bleed, back pain, seizure, CVA, palpatations, mental health, musculoskeletal)? @ -Anxiety, medication refill. This list is not all-inclusive. EKG interpreted by me (3pts min.). @ -None done X-rays interpreted by me (1pt min.). @ -None done CT interpreted by me (1pt min.). @ -None done U/S interpreted by me (1pt. min.). @ -None done What testing was considered but not performed or refused? (CT, X-rays, U/S, labs)? Why? @ -None What meds were considered but not given or refused? Why? @ -None Did you discuss the management of the patient with other professionals (professionals i.e. , PA, FLASK FITTER, lab, RT, psych nurse, social work supervisor, wheelabrator operator, teacher, community arts officer, case assistant)? Give summary @ -No Was smoking cessation discussed for >3mins.? @ -No Was critical care preformed (if so, how long)? @ -No Were there social determinants of health that impacted care today? How? (Homelessness, low income, unemployed, alcoholism, drug addiction, transportation, low edu. Level, literacy, decrease access to med. care, detention, rehab)? @ -No Was there de-escalation of care discussed even if they declined (Discuss DNR or withdrawal of care, Hospice)? DNR status @ -No What co-morbidities impacted this encounter? (DM, HTN, Smoking, COPD, CAD, Cancer, CVA, ARF, Chemo, Hep., AIDS, mental health diagnosis, sleep apnea, morbid obesity)? @ -None Was patient admitted / discharged? Hospital course, mention meds given and route, prescriptions, significant lab abnormalities, going to OR and other pertinent info. @ -Based on the patient's presentation and physical exam, I'm concerned for anxiety for the patient this time. I do not believe that she is a danger to herself or others. She is requesting a small dose of Ativan which will be provided. Vital signs within acceptable limits. She will like to go at this time. I believe it is reasonable. Strict return precautions discussed. I instructed the patient to follow up with their PCP in the next 1-3 days. I e xplained that the patient should return to the emergency department if they experience any worsening symptoms. Strict return precautions were discussed with the patient. The patient expressed understanding of these instructions. I answered all questions that the patient had. The patient was discharged home in good condition with their prescriptions and follow up information. Undiagnosed new problem with uncertain prognosis? @ -No Drug Therapy requiring intensive monitoring for toxicity (Heparin, Nitro, Insulin, Cardizem)? @ -No Were any procedures done? @ -No Diagnosis/symptom? @ -Anxiety Acute, or Chronic, or Acute on Chronic? @ -Acute on chronic Uncomplicated (without systemic symptoms) or Complicated (systemic symptoms)? @ -Uncomplicated Side effects of treatment? @ -No Exacerbation, Progression, or Severe Exacerbation? @ -No Poses a threat to life or bodily function? How? (Chest pain, USA, IA, pneumonia, PE, COPD, DKA, ARF, appy, cholecystitis, CVA, Diverticulitis, Homicidal, Suicidal, threat to staff... and all critical care pts) @ -No Disposition Clinical Impression: Acute anxiety Disposition: HOME SELF-CARE Condition: Good Instructions (If sedation given, give patient instructions): Generalized Anxiety Disorder (ED) Is patient prescribed a controlled substance at d/c from ED?: No Referrals: Cate Tucker MD [Primary Care Provider] - 1-2 days Time of Disposition: 12:45
== END 2022-11-19 12:52 | disposition home or self-care (01) ==
LOC: EC 10:41
DX: F41.9 Anxiety disorder, unspecified (principal); F90.9 Attention-deficit hyperactivity disorder, unspecified type; F31.9 Bipolar disorder, unspecified; F17.200 Nicotine dependence, unspecified, uncomplicated; F12.90 Cannabis use, unspecified, uncomplicated; Z79.899 Other long term (current) drug therapy
CPT/HCPCS: 99282

== ENCOUNTER 2023-01-09 10:44 | Emergency (ER) | payer OTHER ==
[2023-01-09] MEDS ORDERED: LORazepam 1 MG TAB PO STA (11:34)
--- NOTE | 2023-01-09 11:38 | ED ---
Anxiety HPI - General Chief Complaint: Anxiety Stated Complaint: Anxiety Time Seen by Provider: 01/09/23 11:01 Source: patient, RN notes reviewed Mode of arrival: ambulatory Limitations: no limitations - History of Present Illness Initial Comments: 18-year-old female presents emergency Department chief complaint anxiety. Patient states she's having a panic attack. Patient states that she does have a history of anxiety and sees [facility] she has not tried any current medications. Patient sees a therapist. Patient denies any suicidal ideation. Patient denies chest pain shortness of breath states she is very anxious. - Related Data Home Medications: Home Medications Medication Instructions Recorded Confirmed Benztropine Mesylate [Cogentin] 0.5 mg PO BID 03/10/20 11/09/20 OLANZapine [ZyPREXA Zydis] 10 mg PO BID 03/10/20 11/09/20 Atorvastatin [Lipitor] 20 mg PO HS 11/07/20 11/09/20 Ergocalciferol [Vitamin D2 (1250 1,250 mcg PO Q7D 11/07/20 11/09/20 Mcg = 51957 Iu)] Sertraline [Zoloft] 25 mg PO HS 11/09/20 11/09/20 Previous Rx's Medication Instructions Recorded Omeprazole [PriLOSEC] 40 mg PO AC-AYOKFSRobert #14 capsule.dr 11/09/20 clindamycin HCL [Clindamycin HCl] 300 mg PO Q6HR #40 cap 12/20/20 Ibuprofen [Motrin] 600 mg PO Q8HR PRN #20 tab 12/30/20 clindamycin HCL [Clindamycin HCl] 300 mg PO Q6HR #40 cap 12/30/20 Ibuprofen [Motrin] 600 mg PO Q6HR PRN #20 tab 03/19/21 LORazepam [Ativan] 1 mg PO DAILY PRN 3 Days #3 tab 07/21/21 LORazepam [Ativan] 0.5 mg PO HS 3 Days #3 tab 09/29/21 Penicillin V Potassium [Pen Vee K] 500 mg PO QID #40 tablet 10/11/21 clonazePAM [Klonopin ODT] 0.25 mg PO BID #4 tab 06/07/22 clonazePAM [Klonopin ODT] 0.25 mg PO DAILY 3 Days #3 tab 06/15/22 clonazePAM [Klonopin ODT] 0.25 mg PO DAILY PRN #3 tab 06/29/22 clonazePAM [Klonopin ODT] 0.25 mg PO DAILY PRN #2 tab 07/03/22 OLANZapine ODT [ZyPREXA Zydis] 10 mg PO BID #60 tablet 09/29/22 Sertraline [Zoloft] 25 mg PO DAILY #30 tablet 09/29/22 Allergies/Adverse Reactions: Allergies Allergy/AdvReac Type Severity Reaction Status Date / Time No Known Allergies Allergy Verified 01/09/23 10:54 Review of Systems ROS Statement: Those systems with pertinent positive or pertinent negative responses have been documented in the HPI. ROS Other: All systems not noted in ROS Statement are negative. Past Medical History Past Medical History: Seizure Disorder History of Any Multi-Drug Resistant Organisms: None Reported Past Surgical History: No Surgical Hx Reported Additional Past Surgical History / Comment(s): small cysts, externally in her groin area. Past Anesthesia/Blood Transfusion Reactions: No Reported Reaction Past Psychological History: ADD/ADHD, Anxiety, Bipolar, Depression, PTSD Smoking Status: Current every day smoker Past Alcohol Use History: None Reported Past Drug Use History: Marijuana - Past Family History Mother Additional Family Medical History / Comment(s): Mother is alive at age 53 with back and knee surgery, ovarian cysts. Father History Unknown: Yes Additional Family Medical History / Comment(s): Father is alive at age 53 with active history of heroin use Sister(s) Additional Family Medical History / Comment(s): She has 3 sisters and one half- sister with no major medical problems. Patient does not have any brothers. Patient does not have any children. General Exam Limitations: no limitations General appearance: alert, in no apparent distress, anxious Head exam: Present: atraumatic, normocephalic, normal inspection Eye exam: Present: normal appearance, PERRL, EOMI. Absent: scleral icterus, conjunctival injection, periorbital swelling ENT exam: Present: normal exam, normal oropharynx, mucous membranes moist Neck exam: Present: normal inspection, full ROM. Absent: tenderness, meningismus, lymphadenopathy Respiratory exam: Present: normal lung sounds bilaterally. Absent: respiratory distress, wheezes, rales, rhonchi, stridor Cardiovascular Exam: Present: regular rate, normal rhythm, normal heart sounds. Absent: systolic murmur, diastolic murmur, rubs, gallop, clicks Neurological exam: Present: alert, oriented X3 Skin exam: Present: warm, dry, intact, normal color. Absent: rash Course Vital Signs 01/09/23 10:54 Temperature 98 F Pulse Rate 80 Respiratory 18 Rate Blood Pressure 126/91 O2 Sat by Pulse 97 Oximetry Medical Decision Making - Medical Decision Making Was pt. sent in by a medical professional or institution (HUMBERTO Simmons, CEREAL CHEMIST, urgent care, hospital, or correction...) When possible be specific @ -No Did you speak to anyone other than the patient for history (EMS, parent, family, police, friend...)? What history was obtained from this source @ -No Did you review nursing and triage notes (agree or disagree)? Why? @ -I reviewed and agree with nursing and triage notes Were old charts reviewed (outside hosp., previous admission, EMS record, old EKG, old radiological studies, urgent care reports/EKG's, correction records)? Report findings @ -No old charts were reviewed Differential Diagnosis (chest pain, altered mental status, abdominal pain women, abdominal pain men, vaginal bleeding, weakness, fever, dyspnea, syncope, headache, dizziness, GI bleed, back pain, seizure, CVA, palpatations, mental health, musculoskeletal)? @ -Anxiety, depression, PTSD. EKG interpreted by me (3pts min.). @ -None X-rays interpreted by me (1pt min.). @ -None done CT interpreted by me (1pt min.). @ -None done U/S interpreted by me (1pt. min.). @ -None done What testing was considered but not performed or refused? (CT, X-rays, U/S, labs)? Why? @ -None What meds were considered but not given or refused? Why? @ -None Did you discuss the management of the patient with other professionals (professionals i.e. HUMBERTO Simmons, CEREAL CHEMIST, lab, RT, psych nurse, psychiatric social worker supervisor, position classification manager, teacher, custody officer, briefcase sewer)? Give summary @ -No Was smoking cessation discussed for >3mins.? @ -No Was critical care preformed (if so, how long)? @ -No Were there social determinants of health that impacted care today? How? (Homelessness, low income, unemployed, alcoholism, drug addiction, transportation, low edu. Level, literacy, decrease access to med. care, correction, rehab)? @ -No Was there de-escalation of care discussed even if they declined (Discuss DNR or withdrawal of care, Hospice)? DNR status @ -No What co-morbidities impacted this encounter? (DM, HTN, Smoking, COPD, CAD, Cancer, CVA, ARF, Chemo, Hep., AIDS, mental health diagnosis, sleep apnea, morbid obesity)? @ -Anxiety Was patient admitted / discharged? Hospital course, mention meds given and route, prescriptions, significant lab abnormalities, going to OR and other pertinent info. @ -Discharge patient has a history anxiety patient is not suicidal or homicidal. Patient does feel improved at this time after medications. Patient discharged in stable condition. Undiagnosed new problem with uncertain prognosis? @ -No Drug Therapy requiring intensive monitoring for toxicity (Heparin, Nitro, Insulin, Cardizem)? @ -No Were any procedures done? @ -No Diagnosis/symptom? @ -Anxiety, panic attack Acute, or Chronic, or Acute on Chronic? @ -Acute Uncomplicated (without systemic symptoms) or Complicated (systemic symptoms)? @ -Uncomplicated. Side effects of treatment? @ -No Exacerbation, Progression, or Severe Exacerbation? @ -No Poses a threat to life or bodily function? How? (Chest pain, [place], [place], pneumonia, PE, COPD, DKA, ARF, appy, cholecystitis, CVA, Diverticulitis, Homicidal, Suicidal, threat to staff... and all critical care pts) @ -No Disposition Clinical Impression: Acute anxiety Disposition: HOME SELF-CARE Condition: Stable Instructions (If sedation given, give patient instructions): Generalized Anxiety Disorder (ED) Additional Instructions: Please return to the Emergency Department if symptoms worsen or any other concerns. Is patient prescribed a controlled substance at d/c from ED?: No Referrals: Cate Tucker MD [Primary Care Provider] - 1-2 days Time of Disposition: 11:38
[2023-01-09 11:52] VITALS: BP 117/82; PULSE 74; RESP 16; TEMP 98.1
== END 2023-01-09 12:20 | disposition home or self-care (01) ==
LOC: EC 10:44
DX: F41.0 Panic disorder [episodic paroxysmal anxiety] (principal); F31.9 Bipolar disorder, unspecified; F19.90 Other psychoactive substance use, unspecified, uncomplicated; F12.90 Cannabis use, unspecified, uncomplicated; F17.200 Nicotine dependence, unspecified, uncomplicated; Z79.899 Other long term (current) drug therapy
CPT/HCPCS: 99283

== ENCOUNTER 2023-05-08 11:35 | Emergency (ER) | payer OTHER ==
[2023-05-08 11:46] VITALS: BP 113/81; PULSE 95; RESP 18; TEMP 98.1
--- NOTE | 2023-05-08 12:31 | ED ---
General Adult HPI - General Chief complaint: Psychiatric Symptoms Stated complaint: anxiety Time Seen by Provider: 05/08/23 12:00 Source: patient, RN notes reviewed Mode of arrival: ambulatory Limitations: no limitations - History of Present Illness Initial comments: 28-year-old female presents to the emergency department with chief complaint of increasing anxiety. She states that she ran out of her medication 10 days ago. She reports that she takes Zoloft 150 mg daily and olanzapine 10 mg daily. She states that she has appointment on Wednesday for medication refill. She denies suicidal, homicidal ideation, hallucinations, delusions. Denies any physical complaints at this time. - Related Data Home Medications Medication Instructions Recorded Confirmed Benztropine Mesylate [Cogentin] 0.5 mg PO BID 03/10/20 11/09/20 OLANZapine [ZyPREXA Zydis] 10 mg PO BID 03/10/20 11/09/20 Atorvastatin [Lipitor] 20 mg PO HS 11/07/20 11/09/20 Ergocalciferol [Vitamin D2 (1250 1,250 mcg PO Q7D 11/07/20 11/09/20 Mcg = 83292 Iu)] Sertraline [Zoloft] 25 mg PO HS 11/09/20 11/09/20 Previous Rx's Medication Instructions Recorded Omeprazole [PriLOSEC] 40 mg PO AC-BRKFSRobert #14 capsule. 11/09/20 clindamycin HCL [Clindamycin HCl] 300 mg PO Q6HR #40 cap 12/20/20 Ibuprofen [Motrin] 600 mg PO Q8HR PRN #20 tab 12/30/20 clindamycin HCL [Clindamycin HCl] 300 mg PO Q6HR #40 cap 12/30/20 Ibuprofen [Motrin] 600 mg PO Q6HR PRN #20 tab 03/19/21 LORazepam [Ativan] 1 mg PO DAILY PRN 3 Days #3 tab 07/21/21 LORazepam [Ativan] 0.5 mg PO HS 3 Days #3 tab 09/29/21 Penicillin V Potassium [Pen Vee K] 500 mg PO QID #40 tablet 10/11/21 clonazePAM [Klonopin ODT] 0.25 mg PO BID #4 tab 06/07/22 clonazePAM [Klonopin ODT] 0.25 mg PO DAILY 3 Days #3 tab 06/15/22 clonazePAM [Klonopin ODT] 0.25 mg PO DAILY PRN #3 tab 06/29/22 clonazePAM [Klonopin ODT] 0.25 mg PO DAILY PRN #2 tab 07/03/22 OLANZapine ODT [ZyPREXA Zydis] 10 mg PO BID #60 tablet 09/29/22 Sertraline [Zoloft] 25 mg PO DAILY #30 tablet 09/29/22 OLANZapine 10 mg PO BID #14 tablet 05/08/23 Sertraline [Zoloft] 150 mg PO DAILY #21 tab 05/08/23 Allergies Allergy/AdvReac Type Severity Reaction Status Date / Time No Known Allergies Allergy Verified 05/08/23 11:45 Review of Systems ROS Statement: Those systems with pertinent positive or pertinent negative responses have been documented in the HPI. ROS Other: All systems not noted in ROS Statement are negative. Past Medical History Past Medical History: Seizure Disorder History of Any Multi-Drug Resistant Organisms: None Reported Past Surgical History: No Surgical Hx Reported Additional Past Surgical History / Comment(s): small cysts, externally in her groin area. Past Anesthesia/Blood Transfusion Reactions: No Reported Reaction Past Psychological History: ADD/ADHD, Anxiety, Depression, Panic Disorder, PTSD Smoking Status: Current every day smoker Past Alcohol Use History: None Reported Past Drug Use History: Marijuana - Past Family History Mother Additional Family Medical History / Comment(s): Mother is alive at age 53 with back and knee surgery, ovarian cysts. Father History Unknown: Yes Additional Family Medical History / Comment(s): Father is alive at age 53 with active history of heroin use Sister(s) Additional Family Medical History / Comment(s): She has 3 sisters and one half- sister with no major medical problems. Patient does not have any brothers. Patient does not have any children. General Exam Limitations: no limitations General appearance: alert, in no apparent distress Head exam: Present: atraumatic, normocephalic, normal inspection Eye exam: Present: normal appearance, PERRL, EOMI. Absent: scleral icterus, conjunctival injection, periorbital swelling ENT exam: Present: normal exam, mucous membranes moist Neck exam: Present: normal inspection. Absent: tenderness, meningismus, lymphadenopathy Respiratory exam: Present: normal lung sounds bilaterally. Absent: respiratory distress, wheezes, rales, rhonchi, stridor Cardiovascular Exam: Present: regular rate, normal rhythm, normal heart sounds. Absent: systolic murmur, diastolic murmur, rubs, gallop, clicks GI/Abdominal exam: Present: soft, normal bowel sounds. Absent: distended, tenderness, guarding, rebound, rigid Extremities exam: Present: normal inspection, full ROM, normal capillary refill. Absent: tenderness, pedal edema, joint swelling, calf tenderness Back exam: Present: normal inspection Neurological exam: Present: alert, oriented X3 Psychiatric exam: Present: normal affect, normal mood Skin exam: Present: warm, dry, intact, normal color. Absent: rash Course Vital Signs 05/08/23 11:42 Temperature 98.1 F Pulse Rate 95 Respiratory 18 Rate Blood Pressure 113/81 O2 Sat by Pulse 99 Oximetry Medical Decision Making - Medical Decision Making Was pt. sent in by a medical professional or institution (, PA, CONTENT MANAGEMENT CONSULTANT, urgent care, hospital, or senior care...) When possible be specific @ -No Did you speak to anyone other than the patient for history (EMS, parent, family, police, friend...)? What history was obtained from this source @ -No Did you review nursing and triage notes (agree or disagree)? Why? @ -I reviewed and agree with nursing and triage notes Were old charts reviewed (outside hosp., previous admission, EMS record, old EKG, old radiological studies, urgent care reports/EKG's, senior care records)? Report findings @ -No old charts were reviewed Differential Diagnosis (chest pain, altered mental status, abdominal pain women, abdominal pain men, vaginal bleeding, weakness, fever, dyspnea, syncope, headache, dizziness, GI bleed, back pain, seizure, CVA, palpatations, mental health, musculoskeletal)? @ -Differential Mental Health Depression, anxiety, bipolar, psychosis, schizophrenia, borderline personality, situational depression, adjustment disorder, behavioral disorder, brain tumor, malingering, substance abuse, encephalopathy, medication reaction, dementia, hypothyroidism, degenerative neurologic disorder, lupus.... This is not meant to be all-inclusive list EKG interpreted by me (3pts min.). @ -none X-rays interpreted by me (1pt min.). @ -None done CT interpreted by me (1pt min.). @ -None done U/S interpreted by me (1pt. min.). @ -None done What testing was considered but not performed or refused? (CT, X-rays, U/S, labs)? Why? @ -None What meds were considered but not given or refused? Why? @ -None Did you discuss the management of the patient with other professionals (professionals i.e. DrZach, PA, CONTENT MANAGEMENT CONSULTANT, lab, RT, psych nurse, older adult social work specialist, link wire fabric machine tender, teacher, prison officer, rn case manager hospice)? Give summary @ -No Was smoking cessation discussed for >3mins.? @ -No Was critical care preformed (if so, how long)? @ -No Were there social determinants of health that impacted care today? How? (Homelessness, low income, unemployed, alcoholism, drug addiction, transportation, low edu. Level, literacy, decrease access to med. care, alf, rehab)? @ -No Was there de-escalation of care discussed even if they declined (Discuss DNR or withdrawal of care, Hospice)? DNR status @ -No What co-morbidities impacted this encounter? (DM, HTN, Smoking, COPD, CAD, Cancer, CVA, ARF, Chemo, Hep., AIDS, mental health diagnosis, sleep apnea, morbid obesity)? @ -None Was patient admitted / discharged? Hospital course, mention meds given and route, prescriptions, significant lab abnormalities, going to OR and other pertinent info. @ -Discharge. Patient presented in the emergency department chief complaint of increased anxiety. She states she has been off her medications. Patient was provided a short-term refill of these medications until she can follow up with her psychiatrist on Wednesday. Patient is not having any physical complaints at this time. She denies suicidal, homicidal ideation, delusions, hallucinations. Patient agreeable with plan of medication refill. Patient will be discharged home with close follow-up to her psychiatrist. Patient is stable at time of discharge. Case discussed with Dr. Cherry. Undiagnosed new problem with uncertain prognosis? @ -No Drug Therapy requiring intensive monitoring for toxicity (Heparin, Nitro, Insulin, Cardizem)? @ -No Were any procedures done? @ -No Diagnosis/symptom? @ -Anxiety Acute, or Chronic, or Acute on Chronic? @ -Chronic Uncomplicated (without systemic symptoms) or Complicated (systemic symptoms)? @ -Uncomplicated Side effects of treatment? @ -No Exacerbation, Progression, or Severe Exacerbation? @ -No Poses a threat to life or bodily function? How? (Chest pain, [place], [place], pneumonia, PE, COPD, DKA, ARF, appy, cholecystitis, CVA, Diverticulitis, Homicidal, Suicidal, threat to staff... and all critical care pts) @ -No Disposition Clinical Impression: Anxiety disorder Disposition: HOME SELF-CARE Condition: Stable Additional Instructions: Please follow up for your appointment as scheduled on Wednesday. Return to the emergency department for new or worsening symptoms. Prescriptions: OLANZapine 10 mg PO BID #14 tablet Sertraline [Zoloft] 150 mg PO DAILY #21 tab Is patient prescribed a controlled substance at d/c from ED?: No Referrals: Cate Tucker MD [Primary Care Provider] - 1-2 days
[2023-05-08] MEDS ORDERED: OLANZapine 10 MG TAB PO STA (12:43)
[2023-05-08] MEDS ORDERED: SERTRALINE 100 MG TAB PO STA (12:43)
== END 2023-05-08 13:13 | disposition home or self-care (01) ==
LOC: EC 11:35
DX: F41.9 Anxiety disorder, unspecified (principal); F90.9 Attention-deficit hyperactivity disorder, unspecified type; F32.A Depression, unspecified; F17.200 Nicotine dependence, unspecified, uncomplicated; F12.90 Cannabis use, unspecified, uncomplicated; Z79.899 Other long term (current) drug therapy
CPT/HCPCS: 99284

== ENCOUNTER 2023-12-12 03:48 | Emergency (ER) | payer SELFPAY ==
[2023-12-12 03:57] VITALS: BP 120/65; TEMP 97.5
[2023-12-12 04:14] LABS: Basophils % (A) 0 %; Eosinophils # (A) 0.1 k/uL (0-0.7); Eosinophils % (A) 1 %; HCT 45.3 % (34.0-46.0); HGB 14.2 gm/dL (11.4-16.0); Lymphocytes # (A) 1.9 k/uL (1.0-4.8); Lymphocytes % (A) 11 %; MCH 29.6 pg (25.0-35.0); MCHC 31.4 g/dL (31.0-37.0); MCV 94.4 fL (80.0-100.0); Mean Platelet Volume 10.5; Monocytes # (A) 0.6 k/uL (0-1.0); Monocytes % (A) 4 %; Neutrophils # (A) 14.4 k/uL (1.3-7.7); Neutrophils % (A) 84 %; Platelet Count 276 k/uL (150-450); RDW 12.9 % (11.5-15.5); WBC 17.2 k/uL (3.8-10.6)
--- NOTE | 2023-12-12 04:17 | ED ---
Altered Mental Status HPI - General Chief Complaint: Altered Mental Status Stated Complaint: mental health Time Seen by Provider: 12/12/23 03:51 Source: patient, EMS, RN notes reviewed, old records reviewed Mode of arrival: EMS Limitations: altered mental status - History of Present Illness Initial Comments: This is a 28-year-old female to the ER for evaluation today. Patient presents today for evaluation regards to altered mental status walk around her house allegedly without close on EMS was called by patient significant other for psychiatric evaluation. Patient on arrival to the ER does not want to be here she did rip out her IV but then is continuing to lay in bed and not able to get discharged. Patient is not providing any other history MD Complaint: altered mental status, confusion, intoxication -: unknown Severity: moderate Consistency of Symptoms: waxing and waning Associated Symptoms: denies other symptoms Treatments Prior to Arrival: other pre-hospital medication - Related Data Home Medications Medication Instructions Recorded Confirmed Benztropine Mesylate [Cogentin] 0.5 mg PO BID 03/10/20 11/09/20 OLANZapine [ZyPREXA Zydis] 10 mg PO BID 03/10/20 11/09/20 Atorvastatin [Lipitor] 20 mg PO HS 11/07/20 11/09/20 Ergocalciferol [Vitamin D2 (1250 1,250 mcg PO Q7D 11/07/20 11/09/20 Mcg = 70840 Iu)] Sertraline [Zoloft] 25 mg PO HS 11/09/20 11/09/20 Previous Rx's Medication Instructions Recorded Omeprazole [PriLOSEC] 40 mg PO RENETTA-AYOKFSRobert #14 capsule. 11/09/20 clindamycin HCL [Clindamycin HCl] 300 mg PO Q6HR #40 cap 12/20/20 Ibuprofen [Motrin] 600 mg PO Q8HR PRN #20 tab 12/30/20 clindamycin HCL [Clindamycin HCl] 300 mg PO Q6HR #40 cap 12/30/20 Ibuprofen [Motrin] 600 mg PO Q6HR PRN #20 tab 03/19/21 LORazepam [Ativan] 1 mg PO DAILY PRN 3 Days #3 tab 07/21/21 LORazepam [Ativan] 0.5 mg PO HS 3 Days #3 tab 09/29/21 Penicillin V Potassium [Pen Vee K] 500 mg PO QID #40 tablet 10/11/21 clonazePAM [KlonoPIN ODT] 0.25 mg PO BID #4 tab 06/07/22 clonazePAM [Klonopin ODT] 0.25 mg PO DAILY 3 Days #3 tab 06/15/22 clonazePAM [Klonopin ODT] 0.25 mg PO DAILY PRN #3 tab 06/29/22 clonazePAM [KlonoPIN ODT] 0.25 mg PO DAILY PRN #2 tab 07/03/22 OLANZapine ODT [ZyPREXA Zydis] 10 mg PO BID #60 tablet 09/29/22 Sertraline [Zoloft] 25 mg PO DAILY #30 tablet 09/29/22 OLANZapine 10 mg PO BID #14 tablet 05/08/23 Sertraline [Zoloft] 150 mg PO DAILY #21 tab 05/08/23 Allergies Allergy/AdvReac Type Severity Reaction Status Date / Time No Known Allergies Allergy Verified 05/08/23 11:45 Review of Systems ROS Statement: Those systems with pertinent positive or pertinent negative responses have been documented in the HPI. ROS Other: All systems not noted in ROS Statement are negative. Past Medical History Past Medical History: Seizure Disorder History of Any Multi-Drug Resistant Organisms: None Reported Past Surgical History: No Surgical Hx Reported Additional Past Surgical History / Comment(s): small cysts, externally in her groin area. Past Anesthesia/Blood Transfusion Reactions: No Reported Reaction Past Psychological History: ADD/ADHD, Anxiety, Depression, Panic Disorder, PTSD Smoking Status: Current every day smoker Past Alcohol Use History: None Reported Past Drug Use History: Marijuana - Past Family History Mother Additional Family Medical History / Comment(s): Mother is alive at age 53 with back and knee surgery, ovarian cysts. Father History Unknown: Yes Additional Family Medical History / Comment(s): Father is alive at age 53 with active history of heroin use Sister(s) Additional Family Medical History / Comment(s): She has 3 sisters and one half- sister with no major medical problems. Patient does not have any brothers. Patient does not have any children. General Exam Limitations: altered mental status General appearance: alert, in no apparent distress Head exam: Present: atraumatic, normocephalic, normal inspection Eye exam: Present: normal appearance, PERRL, EOMI. Absent: scleral icterus, conjunctival injection, periorbital swelling ENT exam: Present: normal exam, mucous membranes moist Neck exam: Present: normal inspection. Absent: tenderness, meningismus, lymphadenopathy Respiratory exam: Present: normal lung sounds bilaterally. Absent: respiratory distress, wheezes, rales, rhonchi, stridor Cardiovascular Exam: Present: regular rate, normal rhythm, normal heart sounds. Absent: systolic murmur, diastolic murmur, rubs, gallop, clicks GI/Abdominal exam: Present: soft, normal bowel sounds. Absent: distended, tenderness, guarding, rebound, rigid Extremities exam: Present: normal inspection, full ROM, normal capillary refill. Absent: tenderness, pedal edema, joint swelling, calf tenderness Back exam: Present: normal inspection Neurological exam: Present: alert, oriented X3, CN II-XII intact Psychiatric exam: Present: normal affect, normal mood Skin exam: Present: warm, dry, intact, normal color. Absent: rash Course Vital Signs 12/12/23 12/12/23 03:52 05:16 Temperature 97.5 F L Pulse Rate 53 L 61 Respiratory 16 18 Rate Blood Pressure 120/65 O2 Sat by Pulse 100 99 Oximetry - Reevaluation(s) Reevaluation #1: 12/12/23 06:12 Medical records reviewed Reevaluation #2: 12/12/23 06:12 Medically cleared for psychiatric evaluation Reevaluation #3: Was pt. sent in by a medical professional or institution (, PA, REAL ESTATE SALES SUPERVISOR, urgent care, hospital, or snf...) When possible be specific @ -no Did you speak to anyone other than the patient for history (EMS, parent, family, police, friend...)? What history was obtained from this source @ -no Did you review nursing and triage notes (agree or disagree)? Why? @ -agree Are old charts reviewed (outside hosp., previous admission, EMS record, old EKG, old radiological studies, urgent care reports/EKG's, snf records)? Report findings @ -yes Differential Diagnosis (chest pain, altered mental status, abdominal pain women, abdominal pain men, vaginal bleeding, weakness, fever, dyspnea, syncope, headache, dizziness, GI bleed, back pain, seizure, CVA, palpatations, mental health, musculoskeletal)? @ -prior EKG interpreted by me (3pts min.). @ -no X-rays interpreted by me (1pt min.). @ -no CT interpreted by me (1pt min.). @ -no U/S interpreted by me (1pt. min.). @ -no What testing was considered but not performed or refused? (CT, X-rays, U/S, labs)? Why? @ -none What meds were considered but not given or refused? Why? @ -none Did you discuss the management of the patient with other professionals (professionals i.e. , PA, REAL ESTATE SALES SUPERVISOR, lab, RT, psych nurse, social media strategist, associate professor of forestry, teacher, evp and chief operating officer, correctional case manager)? Give summary @ -no Was smoking cessation discussed for >3mins.? @ -no Was critical care preformed (if so, how long)? @ -no Were there social determinants of health that impacted care today? How? (Homelessness, low income, unemployed, alcoholism, drug addiction, transportation, low edu. Level, literacy, decrease access to med. care, fpc, rehab)? @ -none Was there de-escalation of care discussed even if they declined (Discuss DNR or withdrawal of care, Hospice)? DNR status @ -no What co-morbidities impacted this encounter? (DM, HTN, Smoking, COPD, CAD, Cancer, CVA, ARF, Chemo, Hep., AIDS, mental health diagnosis, sleep apnea, morbid obesity)? @ -none Was patient admitted / discharged? Hospital course, mention meds given and route, prescriptions, significant lab abnormalities, going to OR and other pertinent info. @ - 28 female to ER for altered mental status and on mental health evaluation. Patient has no acute cause and symptoms here in the hospital feels well and can be discharged home Discharge Undiagnosed new problem with uncertain prognosis? @ -no Drug Therapy requiring intensive monitoring for toxicity (Heparin, Nitro, Insulin, Cardizem)? @ -no Were any procedures done? @ -no Diagnosis/symptom? @ -Altered mental status, anxiety and mental health Acute, or Chronic, or Acute on Chronic? @ -Acute Uncomplicated (without systemic symptoms) or Complicated (systemic symptoms)? @ -Complicated Side effects of treatment? @ -no Exacerbation, Progression, or Severe Exacerbation? @ -exacerbation Poses a threat to life or bodily function? How? (Chest pain, USA, MS, pneumonia, PE, COPD, DKA, ARF, appy, cholecystitis, CVA, Diverticulitis, Homicidal, Suicidal, threat to staff... and all critical care pts) @ -yes mental health Reevaluation #4: Differential Mental Health Depression, anxiety, bipolar, psychosis, schizophrenia, borderline personality, situational depression, adjustment disorder, behavioral disorder, brain tumor, malingering, substance abuse, encephalopathy, medication reaction, dementia, hypothyroidism, degenerative neurologic disorder, lupus.... This is not meant to be all-inclusive list Medical Decision Making - Medical Decision Making 28 female to ER for altered mental status and on mental health evaluation. Patient has no acute cause and symptoms here in the hospital feels well and can be discharged home - Lab Data Result diagrams: 12/12/23 04:04 12/12/23 04:04 Lab Results 12/12/23 12/12/23 12/12/23 Range/Units 04:04 04:04 04:04 WBC 17.2 H (3.8-10.6) k/uL RBC 4.80 (3.80-5.40) m/uL Hgb 14.2 (11.4-16.0) gm/dL Hct 45.3 (34.0-46.0) % MCV 94.4 (80.0-100.0) fL MCH 29.6 (25.0-35.0) pg MCHC 31.4 (31.0-37.0) g/dL RDW 12.9 (11.5-15.5) % Plt Count 276 (150-450) k/uL MPV 10.5 Neutrophils % 84 % Lymphocytes % 11 % Monocytes % 4 % Eosinophils % 1 % Basophils % 0 % Neutrophils # 14.4 H (1.3-7.7) k/uL Lymphocytes # 1.9 (1.0-4.8) k/uL Monocytes # 0.6 (0-1.0) k/uL Eosinophils # 0.1 (0-0.7) k/uL Basophils # 0.0 (0-0.2) k/uL PT 10.6 (10.0-12.5) sec INR 1.0 (<1.2) APTT 24.0 (22.0-30.0) sec Sodium 140 (137-145) mmol/L Potassium 3.9 (3.5-5.1) mmol/L Chloride 111 H (98-107) mmol/L Carbon Dioxide 22 (22-30) mmol/L Anion Gap 7 mmol/L BUN 10 (7-17) mg/dL Creatinine 0.53 (0.52-1.04) mg/dL Est GFR (CKD-EPI)AfAm >90 (>60 ml/min/1.73 sqM) Est GFR (CKD-EPI)NonAf >90 (>60 ml/min/1.73 sqM) Glucose 161 H (74-99) mg/dL Calcium 9.1 (8.4-10.2) mg/dL Total Bilirubin 0.5 (0.2-1.3) mg/dL AST 21 (14-36) U/L ALT 20 (4-34) U/L Alkaline Phosphatase 49 (38-126) U/L Ammonia (<30) umol/L Troponin I (0.000-0.034) ng/mL Total Protein 5.8 L (6.3-8.2) g/dL Albumin 3.7 (3.5-5.0) g/dL Salicylates <1.0 mg/dL Acetaminophen <10.0 ug/mL Serum Alcohol <10 mg/dL 12/12/23 12/12/23 Range/Units 04:04 04:04 WBC (3.8-10.6) k/uL RBC (3.80-5.40) m/uL Hgb (11.4-16.0) gm/dL Hct (34.0-46.0) % MCV (80.0-100.0) fL MCH (25.0-35.0) pg MCHC (31.0-37.0) g/dL RDW (11.5-15.5) % Plt Count (150-450) k/uL MPV Neutrophils % % Lymphocytes % % Monocytes % % Eosinophils % % Basophils % % Neutrophils # (1.3-7.7) k/uL Lymphocytes # (1.0-4.8) k/uL Monocytes # (0-1.0) k/uL Eosinophils # (0-0.7) k/uL Basophils # (0-0.2) k/uL PT (10.0-12.5) sec INR (<1.2) APTT (22.0-30.0) sec Sodium (137-145) mmol/L Potassium (3.5-5.1) mmol/L Chloride (98-107) mmol/L Carbon Dioxide (22-30) mmol/L Anion Gap mmol/L BUN (7-17) mg/dL Creatinine (0.52-1.04) mg/dL Est GFR (CKD-EPI)AfAm (>60 ml/min/1.73 sqM) Est GFR (CKD-EPI)NonAf (>60 ml/min/1.73 sqM) Glucose (74-99) mg/dL Calcium (8.4-10.2) mg/dL Total Bilirubin (0.2-1.3) mg/dL AST (14-36) U/L ALT (4-34) U/L Alkaline Phosphatase (38-126) U/L Ammonia <9 (<30) umol/L Troponin I <0.012 (0.000-0.034) ng/mL Total Protein (6.3-8.2) g/dL Albumin (3.5-5.0) g/dL Salicylates mg/dL Acetaminophen ug/mL Serum Alcohol mg/dL Disposition Clinical Impression: Altered mental status Disposition: HOME SELF-CARE Condition: Fair Instructions (If sedation given, give patient instructions): Altered Mental Status (ED) Is patient prescribed a controlled substance at d/c from ED?: No Referrals: Cate Tucker MD [Primary Care Provider] - 1-2 days Time of Disposition: 05:30
[2023-12-12] MEDS: SODIUM CHLORIDE 0.9% 1,000 ML IV ONE (04:20)
[2023-12-12] MEDS: SODIUM CHLORIDE 0.9% 1,000 ML IV STA (04:23)
[2023-12-12 04:24] LABS: ALT 20 U/L (4-34); AST 21 U/L (14-36); Acetaminophen <10.0 ug/mL; African American GFR (CKD) >90 (>60 ml/min/1.73 sqM); Albumin 3.7 g/dL (3.5-5.0); Alcohol <10 mg/dL; Alkaline Phosphatase 49 U/L (38-126); Anion Gap 7 mmol/L; Blood Urea Nitrogen 10 mg/dL (7-17); Calcium 9.1 mg/dL (8.4-10.2); Carbon Dioxide 22 mmol/L (22-30); Chloride 111 mmol/L (98-107); Glucose 161 mg/dL (74-99); Non-African American GFR(CKD) >90 (>60 ml/min/1.73 sqM); Potassium 3.9 mmol/L (3.5-5.1); Salicylate <1.0 mg/dL; Sodium 140 mmol/L (137-145); Total Bilirubin 0.5 mg/dL (0.2-1.3); Total Protein 5.8 g/dL (6.3-8.2)
[2023-12-12 04:40] LABS: Prothrombin Time 10.6 sec (10.0-12.5)
[2023-12-12 05:30] VITALS: PULSE 61; RESP 18
== END 2023-12-12 06:58 | disposition home or self-care (01) ==
LOC: EC 03:48
DX: R41.82 Altered mental status, unspecified (principal); R00.1 Bradycardia, unspecified; F17.200 Nicotine dependence, unspecified, uncomplicated; F12.90 Cannabis use, unspecified, uncomplicated
CPT/HCPCS: 36415; 80053; 80143; 80179; 80320; 82140; 84484; 85025; 85610; 85730; 96360; 96361; 99285